=== PATIENT | male | born 1960 | race American Indian/Alaskan Native ===

== ENCOUNTER 2018-08-06 18:24 | Observation (INO) | payer MEDICARE ==
[2018-08-06] MEDS ORDERED: ASPIRIN PO ONE (18:41)
--- NOTE | 2018-08-06 18:51 | Emergency Department Report ---
Blank Doc - Documentation Documentation: 58 Y/O MALE WITH PMH OF COUGH, SOB, CHEST PAIN FOR 5-7 DAYS NON IMPROVING.
[2018-08-06 19:17] LABS: Basophils # (Auto) 0.1 K/mm3 (0.0-0.1); Basophils % (Auto) 0.5 % (0.0-1.8); Eosinophils # (Auto) 0.2 K/mm3 (0.0-0.4); Eosinophils % (Auto) 1.5 % (0.0-4.3); Hematocrit 38.4 % (35.5-45.6); Hemoglobin 12.2 gm/dl (11.8-15.2); Lymphocytes # (Auto) 1.3 K/mm3 (1.2-5.4); Lymphocytes % (Auto) 12.2 % (13.4-35.0); Mean Corpuscular HGB Conc 32 % (32-34); Mean Corpuscular Volume 74 fl (84-94); Monocytes # (Auto) 0.5 K/mm3 (0.0-0.8); Monocytes % (Auto) 4.5 % (0.0-7.3); Platelet Count 228 K/mm3 (140-440); Red Blood Count 5.22 M/mm3 (3.65-5.03); Red Cell Distribution Width 16.4 % (13.2-15.2)
[2018-08-06 19:56] LABS: Calcium 8.9 mg/dL (8.4-10.2)
[2018-08-06 20:02] LABS: Alanine Aminotransferase 18 units/L (7-56); Albumin 3.8 g/dL (3.9-5)
[2018-08-06 20:06] LABS: Bilirubin,Direct < 0.2 mg/dL (0-0.2)
--- NOTE | 2018-08-06 20:12 | XRay Report ---
PROCEDURE: XR CHEST 1V AP HISTORY: Chest Pain FINDINGS: Single frontal view of the chest was acquired. The heart is top normal in size. There is a pacing device. There is no evidence of congestive heart failure. There is no pneumothorax. There is some faint increased density overlying the right upper lobe, overlying the right posterior f ourth and fifth ribs. It is possible that this could be confluence of shadows but early pneumonia is not excluded. Consider follow-up radiography as clinically indicated. IMPRESSION: No evidence of congestive heart failure Possible right upper lobe infiltrate consider follow-up radiography as clinically indicated This document is electronically signed by Corey Watkins MD., Aug 06 2018 08:10:35 PM ET
[2018-08-06 20:22] LABS: Chol/HDL Ratio 2.47 %
[2018-08-06] MEDS ORDERED: MORPHINE IV ONE (22:40)
[2018-08-06] MEDS ORDERED: PERCOCET 5/325 PO ONE (23:13)
[2018-08-06] MEDS ORDERED: PERCOCET 5/325 ONE (23:15)
[2018-08-06] MEDS ORDERED: ASPIRIN ONE (23:15)
--- NOTE | 2018-08-06 23:52 | Emergency Department Report ---
ED Chest Pain HPI - General Chief Complaint: Chest Pain Stated Complaint: RT KNEE/CHEST PAIN Time Seen by Provider: 08/06/18 18:32 Source: patient Mode of arrival: Ambulatory Limitations: No Limitations - History of Present Illness Initial Comments: 58-year-old male with history of CHF with pacemaker, HTN, diabetes, presents to ED with dyspnea on exertion and exertional chest pain since last night. Patient describes tightness in chest when walking a short distance. Denies nausea or vomiting. Patient reports last stress test approx 1 year ago. Patient also reports pain to anterior right knee. Denies posterior knee pain or calf pain. Mild swelling present. Denies any obvious injury. Patient reports history of arthritis. PCP: Dr Webster Cardiology: Dr Fatou CHANCE Complaint: chest pain -: Last night Onset: during exertion Pain Location: left chest Severity: moderate Severity scale (0 -10): 6 Quality: tightness Consistency: intermittent Improves With: rest Worsens With: exertion re: dyspnea. denies: vomting, diaphoresis Other Symptoms: cough. denies: leg swelling - Related Data Home Medications Medication Instructions Recorded Confirmed Last Taken Aspirin EC [Aspirin Enteric Coated 1 tab PO DAILY 08/06/18 08/06/18 Unknown TAB] AtorvaSTATin [Lipitor] 40 mg PO QHS 08/06/18 08/06/18 Unknown Carvedilol [Coreg] 12.5 mg PO BID 08/06/18 08/06/18 Unknown Furosemide [Lasix TAB] 40 mg PO QDAY 08/06/18 08/06/18 Unknown Sacubitril/Valsartan [Entresto 24 1 tab PO BID 08/06/18 08/06/18 Unknown - 26 mg] Spironolactone [Aldactone] 25 mg PO QDAY 08/06/18 08/06/18 Unknown amLODIPine [Norvasc] 1 tab PO DAILY 08/06/18 08/06/18 Unknown hydrALAZINE [Apresoline TAB] 1 tab PO BID 08/06/18 08/06/18 Unknown Allergies Allergy/AdvReac Type Severity Reaction Status Date / Time No Known Allergies Allergy Unverified 08/06/18 18:35 Heart Score - HEART Score History: Moderately suspicious EKG: Non-specific Age: 45-65 Risk factors: 1-2 risk factors Troponin: 1-3x normal limit HEART Score: 5 ED Review of Systems ROS: Stated complaint: RT KNEE/CHEST PAIN Other details as noted in HPI Comment: All other systems reviewed and negative Constitutional: denies: chills, fever Respiratory: cough, shortness of breath Cardiovascular: chest pain Gastrointestinal: denies: nausea, vomiting Musculoskeletal: joint swelling, arthralgia ED Past Medical Hx - Past Medical History Hx Congestive Heart Failure: Yes Hx Renal Disease: Yes (right nephrectomy) - Surgical History Additional Surgical History: pacemaker - Social History Smoking Status: Current Every Day Smoker Substance Use Type: None - Medications Home Medications: Home Medications Medication Instructions Recorded Confirmed Last Taken Type Aspirin EC [Aspirin Enteric Coated 1 tab PO DAILY 08/06/18 08/06/18 Unknown History TAB] AtorvaSTATin [Lipitor] 40 mg PO QHS 08/06/18 08/06/18 Unknown History Carvedilol [Coreg] 12.5 mg PO BID 08/06/18 08/06/18 Unknown History Furosemide [Lasix TAB] 40 mg PO QDAY 08/06/18 08/06/18 Unknown History Sacubitril/Valsartan [Entresto 24 1 tab PO BID 08/06/18 08/06/18 Unknown History - 26 mg] Spironolactone [Aldactone] 25 mg PO QDAY 08/06/18 08/06/18 Unknown History amLODIPine [Norvasc] 1 tab PO DAILY 08/06/18 08/06/18 Unknown History hydrALAZINE [Apresoline TAB] 1 tab PO BID 08/06/18 08/06/18 Unknown History ED Physical Exam - General Limitations: No Limitations General appearance: alert, in no apparent distress - Head Head exam: Present: atraumatic, normocephalic - Eye Eye exam: Present: normal appearance - ENT ENT exam: Present: mucous membranes moist - Neck Neck exam: Present: normal inspection - Respiratory Respiratory exam: Present: normal lung sounds bilaterally. Absent: respiratory distress - Cardiovascular Cardiovascular Exam: Present: regular rate, normal rhythm - GI/Abdominal GI/Abdominal exam: Present: soft. Absent: distended, tenderness - Extremities Exam Extremities exam: Present: other (mild swelling present to right knee w/ tenderness to palpation and pain w/ ROM). Absent: pedal edema, calf tenderness - Neurological Exam Neurological exam: Present: alert, oriented X3 - Psychiatric Psychiatric exam: Present: normal affect, normal mood - Skin Skin exam: Present: warm, dry, intact, normal color ED Course Vital Signs 08/06/18 08/06/18 08/06/18 18:36 23:00 23:30 Temperature 9 F L 98.3 F Pulse Rate 101 H 90 90 Pulse Rate [ Anterior Bilateral] Respiratory 20 21 16 Rate Respiratory Rate [Anterior Bilateral] Blood Pressure 132/70 165/78 Blood Pressure 165/78 [Left] O2 Sat by Pulse 99 97 99 Oximetry 08/07/18 08/07/18 08/07/18 00:00 00:19 02:01 Temperature Pulse Rate 91 H 86 88 Pulse Rate [ Anterior Bilateral] Respiratory 26 H 18 24 Rate Respiratory Rate [Anterior Bilateral] Blood Pressure 144/67 144/67 126/54 Blood Pressure [Left] O2 Sat by Pulse 93 94 96 Oximetry 08/07/18 08/07/18 08/07/18 02:53 03:01 03:10 Temperature Pulse Rate 94 H Pulse Rate [ 88 91 H Anterior Bilateral] Respiratory 12 Rate Respiratory 18 13 Rate [Anterior Bilateral] Blood Pressure 117/51 Blood Pressure [Left] O2 Sat by Pulse 98 Oximetry 08/07/18 08/07/18 08/07/18 04:00 04:11 04:21 Temperature Pulse Rate 81 86 73 Pulse Rate [ Anterior Bilateral] Respiratory 24 24 28 H Rate Respiratory Rate [Anterior Bilateral] Blood Pressure 123/51 117/51 117/51 Blood Pressure [Left] O2 Sat by Pulse 97 97 95 Oximetry 08/07/18 04:30 Temperature Pulse Rate 59 L Pulse Rate [ Anterior Bilateral] Respiratory 21 Rate Respiratory Rate [Anterior Bilateral] Blood Pressure 117/51 Blood Pressure [Left] O2 Sat by Pulse 99 Oximetry ED Medical Decision Making - Lab Data Result diagrams: 08/07/18 05:34 08/07/18 05:34 - EKG Data -: EKG Interpreted by Mo EKG shows normal: sinus rhythm, axis, intervals, QRS complexes, ST-T waves Rate: normal - EKG Data Interpretation: no acute changes, LVH, other (LAFB) - Radiology Data Radiology results: report reviewed - Medical Decision Making 58 yo M w/ HTN, diabetes, CHF w/ pacemaker. Reports exertional chest tightness and dyspnea since yesterday. EKG shows no acute ST changes. Initial trop 0.03, repeat decreased to 0.02. CXR shows no abnormalities. Reports it has been at least one year since his last stress test. Pt also reporting pain and swelling to right knee. Xrays unremarkable. Possible arthritis. Vital signs normal, remaider of labs unremarkable, except for creatnine of 1.7. Pt reports only having one kidney. Spoke w/ Dr Restrepo, hospitalist, will admit for further management. - Differential Diagnosis ACS, pulm edema, arthritis Critical care attestation.: If time is entered above; I have spent that time in minutes in the direct care of this critically ill patient, excluding procedure time. ED Disposition Clinical Impression: Chest pain Disposition: OP ADMIT IP TO THIS HOSP Is pt being admited?: Yes Condition: Stable Time of Disposition: 00:44
--- NOTE | 2018-08-07 00:19 | XRay Report ---
PROCEDURE: XR CHEST ROUTINE 2V TECHNIQUE: PA and lateral radiographs of the chest obtained. HISTORY: chest pain, abnormal 1 view COMPARISONS: None FINDINGS: Left-sided AICD noted. No focal consolidation or effusion visualized. No pneumothorax utilized. IMPRESSION: No focal consolidation or effusion.. This document is electronically signed by Jaime Beltran MD., Aug 07 2018 12:16:53 AM ET
--- NOTE | 2018-08-07 00:20 | XRay Report ---
PROCEDURE: XR KNEE 3V RT TECHNIQUE: Right knee radiographs, AP, lateral, and sunrise views. HISTORY: knee pain COMPARISONS: None FINDINGS: Fracture (s) and/or Dislocation(s): None Alignment: Normal Joint space(s): Normal Soft tissues: Normal Bone mineralization: Normal Foreign bodies: None IMPRESSION: No acute fracture or dislocation. This document is electronically signed by Jaime Beltran MD., Aug 07 2018 12:18:00 AM ET
[2018-08-07] MEDS ORDERED: SODIUM CHLORIDE FLUSH SYRINGE 10 ML IV PRN (01:19)
[2018-08-07] MEDS ORDERED: ZOFRAN IV PRN (01:19)
[2018-08-07] MEDS ORDERED: TYLENOL PO PRN (01:19)
[2018-08-07] MEDS ORDERED: MORPHINE IV PRN (01:19)
--- NOTE | 2018-08-07 01:33 | History and Physical Report ---
History of Present Illness Date of examination: 08/07/18 History of present illness: 58-year-old man with a history of hypertension, diabetes, CHF course emergency room with complaints of chest pain. Pain is in the left substernal area which she described as pressure, intermittent ever 5 minutes, no radiation, intensity 5/10, no radiation, relieved with nitroglycerin. Admits to shortness of breath, worse with exertion. He had a stress test 1 year ago Review of systems Constitutional: no weight loss, chills, fever Ears, eyes, nose, mouth and throat: no nasal congestion, no nasal discharge, no sinus pressure, no vision change, no red eye. Neck: No neck pain or rigidity. Cardiovascular: no palpitations Respiratory: no cough, +shortness of breath Gastrointestinal: no hematochezia, abdominal pain Genitourinary : no frequency , no hematuria Musculoskeletal: no joint swelling or muscle ache Integumentary: no rash, no pruritis Neurological: no parathesias, no focal weakness Endocrine: no cold or heat intolerance, no polyuria or polydipsia Hematologic/Lymphatic: no easy bruising, no easy bleeding, no gland swelling Allergic/Immunologic: no urticaria, no angioedema. PAST MEDICAL HISTORY: hypertension, diabetes, CHF PAST SURGICAL HISTORY: Right nephrectomy SOCIAL HISTORY: Denies alcohol, drugs, tobacco FAMILY HISTORY: Hypertension Medications and Allergies Allergies Allergy/AdvReac Type Severity Reaction Status Date / Time No Known Allergies Allergy Unverified 08/06/18 18:35 Home Medications Medication Instructions Recorded Confirmed Last Taken Type Aspirin EC [Aspirin Enteric Coated 1 tab PO DAILY 08/06/18 08/06/18 Unknown History TAB] AtorvaSTATin [Lipitor] 40 mg PO QHS 08/06/18 08/06/18 Unknown History Carvedilol [Coreg] 12.5 mg PO BID 08/06/18 08/06/18 Unknown History Furosemide [Lasix TAB] 40 mg PO QDAY 08/06/18 08/06/18 Unknown History Sacubitril/Valsartan [Entresto 24 1 tab PO BID 08/06/18 08/06/18 Unknown History - 26 mg] Spironolactone [Aldactone] 25 mg PO QDAY 08/06/18 08/06/18 Unknown History amLODIPine [Norvasc] 1 tab PO DAILY 08/06/18 08/06/18 Unknown History hydrALAZINE [Apresoline TAB] 1 tab PO BID 08/06/18 08/06/18 Unknown History Active Meds: Active Medications Acetaminophen (Tylenol) 650 mg PO Q4H PRN PRN Reason: Pain MILD(1-3)/Fever >100.5/GUZMAN Albuterol/Ipratropium (Duoneb *Not For Prn Use*) 1 ampul IH Q6HRT [facility] Enoxaparin Sodium (Lovenox) 30 mg SUB-Q QDAY [facility] Morphine Sulfate (Morphine) 2 mg IV Q4H PRN PRN Reason: Pain, Moderate (4-6) Ondansetron HCl (Zofran) 4 mg IV Q8H PRN PRN Reason: Nausea And Vomiting Sodium Chloride (Sodium Chloride Flush Syringe 10 Ml) 10 ml IV BID [facility] Sodium Chloride (Sodium Chloride Flush Syringe 10 Ml) 10 ml IV PRN PRN PRN Reason: LINE FLUSH Exam - Physical Exam Narrative exam: General Apperance: The patient lying in bed, breathing comfortable HEENT: Normocephalic, atraumatic. Pupils equally round and reactive to light, EOMI, no sclericterus or JVD or thyromegaly or nodule. , no carotid bruit, mucous membranes moist, no exudate or erythema Heart: S1-S2, regular is rhythm Lungs: Clear to auscultation bilaterally, breathing comfortable Abdomen: Positive bowel sounds, soft, nontender, nondistended, no organomegaly Extremities: No edema cyanosis clubbing Skin: no rash, nodule, warm and dry Neuro: cranial nerves 2-12 intact, speech is fluent, motor/sensory intact - Constitutional Vitals: Temp Pulse Resp BP Pulse Ox 98.3 F 91 H 26 H 144/67 93 08/06/18 23:30 08/07/18 00:00 08/07/18 00:00 08/07/18 00:00 08/07/18 00:00 Results - Labs CBC & Chem 7: 08/06/18 18:51 08/06/18 18:51 Labs: Abnormal lab results 08/06/18 08/06/18 08/06/18 Range/Units 18:51 18:51 18:54 RBC 5.22 H (3.65-5.03) M/mm3 MCV 74 L (84-94) fl MCH 23 L (28-32) pg RDW 16.4 H (13.2-15.2) % Lymph % (Auto) 12.2 L (13.4-35.0) % Seg Neutrophils % 81.3 H (40.0-70.0) % Seg Neutrophils # 8.4 H (1.8-7.7) K/mm3 Sodium 134 L (137-145) mmol/L Chloride 97.2 L (98-107) mmol/L BUN 22 H (9-20) mg/dL Creatinine 1.7 H (0.8-1.5) mg/dL Glucose 230 H (75-100) mg/dL Troponin T 0.035 H (0.00-0.029) ng/mL Albumin 3.8 L (3.9-5) g/dL Triglycerides 159 H (2-149) mg/dL - Imaging and Cardiology EKG: image reviewed Chest x-ray: report reviewed Assessment and Plan Assessment Chest pain, rule out ACS CHF, stable Hypertension Diabetes Plan Admit to medicine Check cardiac enzymes, consult cardiology Check fingersticks and initiate insulin sliding scale Continue appropriate outpatient medications DVT prophylaxis
[2018-08-07] MEDS ORDERED: D50W (25GM) Syringe IV PRN (02:00)
[2018-08-07] MEDS: DUONEB *Not for PRN Use IH SCH ×5 (02:50→21:20)
[2018-08-07] MEDS ORDERED: TYLENOL ONE (04:15)
[2018-08-07 07:04] LABS: Basophils % (Auto) 0.6 % (0.0-1.8); Calcium 8.4 mg/dL (8.4-10.2); Eosinophils # (Auto) 0.2 K/mm3 (0.0-0.4); Eosinophils % (Auto) 3.2 % (0.0-4.3); Hematocrit 34.5 % (35.5-45.6); Lymphocytes # (Auto) 1.9 K/mm3 (1.2-5.4); Lymphocytes % (Auto) 25.4 % (13.4-35.0); Mean Corpuscular HGB Conc 32 % (32-34); Mean Corpuscular Volume 73 fl (84-94); Monocytes # (Auto) 0.9 K/mm3 (0.0-0.8); Monocytes % (Auto) 11.9 % (0.0-7.3); Platelet Count 198 K/mm3 (140-440); Red Cell Distribution Width 16.5 % (13.2-15.2)
[2018-08-07] MEDS: HumaLOG SUB-Q SCH ×3 (09:31→22:00)
[2018-08-07] MEDS: APRESOLINE PO SCH ×2 (09:44→21:44)
[2018-08-07] MEDS: HALFPRIN EC PO SCH (09:44)
[2018-08-07] MEDS: NORVASC PO SCH (09:44)
[2018-08-07] MEDS: ALDACTONE PO SCH (09:44)
[2018-08-07] MEDS: SODIUM CHLORIDE FLUSH SYRINGE 10 ML IV SCH ×2 (09:45→21:46)
[2018-08-07] MEDS: COREG PO SCH (09:45)
[2018-08-07] MEDS ORDERED: LASIX PO SCH (10:00)
[2018-08-07] MEDS ORDERED: LOVENOX SUB-Q SCH (10:00)
[2018-08-07] MEDS ORDERED: AFLURIA QUAD 2018-2019 SYRINGE IM ONE (12:00)
--- NOTE | 2018-08-07 13:04 | Consultation ---
History of Present Illness Consult date: 08/07/18 Consult reason: congestive heart failure History of present illness: The patient is a 58-year-old man with multiple medical problems. He has severe obesity, obstructive sleep apnea on home CPAP, and chronic tobacco abuse. He also has a long history of a dilated, nonischemic cardiomyopathy. 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 Cardiac catheterization several years ago revealed no significant coronary artery disease, and patient was subsequently implanted with a defibrillator in 2005. He is unable to articulate his left ventricular ejection fraction percentage. The patient presents to the hospital at this time complaining of shortness of breath, chest tightness, cough. He denies noncompliance with his medications, but admits to recent consumption of high sodium [place] food and also noncompliance with his home CPAP therapy. His ECG is normal sinus rhythm, left axis deviation, left ventricular hypertrophy, poor R-wave progression but no acute ischemic changes. X-rays not available for review, but the report states no evidence of significant interstitial edema or heart failure exacerbation. Past History Past Medical History: heart failure, hypertension Past Surgical History: Other (cardiac defibrillator) Medications and Allergies Allergies Allergy/AdvReac Type Severity Reaction Status Date / Time No Known Allergies Allergy Unverified 08/06/18 18:35 Home Medications Medication Instructions Recorded Confirmed Last Taken Type Aspirin EC [Aspirin Enteric Coated 1 tab PO DAILY 08/06/18 08/06/18 Unknown His tory TAB] AtorvaSTATin [Lipitor] 40 mg PO QHS 08/06/18 08/06/18 Unknown History Carvedilol [Coreg] 12.5 mg PO BID 08/06/18 08/06/18 Unknown History Furosemide [Lasix TAB] 40 mg PO QDAY 08/06/18 08/06/18 Unknown History Sacubitril/Valsartan [Entresto 24 1 tab PO BID 08/06/18 08/06/18 Unknown History - 26 mg] Spironolactone [Aldactone] 25 mg PO QDAY 08/06/18 08/06/18 Unknown History amLODIPine [Norvasc] 1 tab PO DAILY 08/06/18 08/06/18 Unknown History hydrALAZINE [Apresoline TAB] 1 tab PO BID 08/06/18 08/06/18 Unknown History Active Meds: Active Medications Acetaminophen (Tylenol) 650 mg PO Q4H PRN PRN Reason: Pain MILD(1-3)/Fever >100.5/GUZMAN Last Admin: 08/07/18 04:20 Dose: 650 mg Documented by: Albuterol/Ipratropium (Duoneb *Not For Prn Use*) 1 ampul IH Q6HRT [facility] Last Admin: 08/07/18 12:36 Dose: 1 ampul Documented by: Amlodipine Besylate (Norvasc) 10 mg PO DAILY [facility] Last Admin: 08/07/18 09:44 Dose: 10 mg Documented by: Aspirin (Halfprin Ec) 81 mg PO DAILY [facility] Last Admin: 08/07/18 09:44 Dose: 81 mg Documented by: Atorvastatin Calcium (Lipitor) 40 mg PO QHS [facility] Carvedilol (Coreg) 12.5 mg PO BID@0800,1700 [facility] Last Admin: 08/07/18 09:45 Dose: 12.5 mg Documented by: Dextrose (D50w (25gm) Syringe) 50 ml IV PRN PRN PRN Reason: Hypoglycemia Enoxaparin Sodium (Lovenox) 40 mg SUB-Q QDAY@1000 [facility] Furosemide (Lasix) 40 mg PO QDAY [facility] Last Admin: 08/07/18 09:44 Dose: 40 mg Documented by: Hydralazine HCl (Apresoline) 100 mg PO BID [facility] Last Admin: 08/07/18 09:44 Dose: 100 mg Documented by: Insulin Human Lispro (Humalog) 0 unit SUB-Q [facility]; Protocol Last Admin: 08/07/18 09:31 Dose: Not Given Documented by: Morphine Sulfate (Morphine) 2 mg IV Q4H PRN PRN Reason: Pain, Moderate (4-6) Ondansetron HCl (Zofran) 4 mg IV Q8H PRN PRN Reason: Nausea And Vomiting Sodium Chloride (Sodium Chloride Flush Syringe 10 Ml) 10 ml IV BID [facility] Last Admin: 08/07/18 09:45 Dose: 10 ml Documented by: Sodium Chloride (Sodium Chloride Flush Syringe 10 Ml) 10 ml IV PRN PRN PRN Reason: LINE FLUSH Spironolactone (Aldactone) 25 mg PO QDAY@0800 [facility] Last Admin: 08/07/18 09:44 Dose: 25 mg Documented by: Review of Systems Cardiovascular: chest pain, orthopnea, edema, shortness of breath, no palpitations, no rapid/irregular heart beat, no syncope, no lightheadedness Physical Examination Vital Signs Temp Pulse Resp BP Pulse Ox 9 F L 101 H 20 132/70 99 08/06/18 18:36 08/06/18 18:36 08/06/18 18:36 08/06/18 18:36 08/06/18 18:36 General appearance: no acute distress HEENT: Positive: PERRL Neck: Positive: neck supple Cardiac: Positive: Reg Rate and Rhythm Lungs: Positive: Decreased Breath Sounds Neuro: Positive: Grossly Intact Abdomen: Positive: Soft Male genitourinary: Positive: deferred Skin: Positive: Clear Extremities: Present: edema (trace) Results 08/07/18 05:34 08/07/18 05:34 Cardiac Enzymes 08/06/18 Range/Units 18:54 AST 23 (5-40) units/L Lipids 08/06/18 Range/Units 18:51 Triglycerides 159 H (2-149) mg/dL Cholesterol 109 (50-199) mg/dL HDL Cholesterol 44 (40-59) mg/dL Cholesterol/HDL Ratio 2.47 % CBC 08/06/18 08/07/18 Range/Units 18:51 05:34 WBC 10.3 7.5 (4.5-11.0) K/mm3 RBC 5.22 H 4.70 (3.65-5.03) M/mm3 Hgb 12.2 11.0 L (11.8-15.2) gm/dl Hct 38.4 34.5 L (35.5-45.6) % Plt Count 228 198 (140-440) K/mm3 Lymph # 1.3 1.9 (1.2-5.4) K/mm3 Kerr # 0.5 0.9 H (0.0-0.8) K/mm3 Eos # 0.2 0.2 (0.0-0.4) K/mm3 Baso # 0.1 0.0 (0.0-0.1) K/mm3 Comprehensive Metabolic Panel 08/06/18 08/06/18 08/07/18 Range/Units 18:51 18:54 05:34 Sodium 134 L 137 (137-145) mmol/L Potassium 4.2 4.0 (3.6-5.0) mmol/L Chloride 97.2 L 101.7 (98-107) mmol/L Carbon Dioxide 24 24 (22-30) mmol/L BUN 22 H 23 H (9-20) mg/dL Creatinine 1.7 H 1.7 H (0.8-1.5) mg/dL Glucose 230 H 122 H (75-100) mg/dL Calcium 8.9 8.4 (8.4-10.2) mg/dL Direct Bilirubin < 0.2 (0-0.2) mg/dL Indirect Bilirubin 0.2 mg/dL AST 23 (5-40) units/L ALT 18 (7-56) units/L Alkaline Phosphatase 96 (35-129) units/L Total Protein 7.3 (6.3-8.2) g/dL Albumin 3.8 L (3.9-5) g/dL EKG interpretations - Telemetry EKG Rhythm: Sinus Rhythm Assessment and Plan - Patient Problems (1) Acute on chronic systolic heart failure Current Visit: Yes Status: Acute Plan to address problem: Patient's presentation appears consistent with acute on chronic systolic heart failure, likely exacerbated by dietary salt indiscretion. We will switch to intravenous furosemide, and continue his routine afterload and beta jj therapy. An echocardiogram will be done for left ventricular function assessment. (2) Sleep apnea Current Visit: Yes Status: Acute Plan to address problem: I suspect that some of this patient's shortness of breath is related to his poor compliance with his CPAP therapy, recommend pulmonary consultation and further assessment of therapies for sleep apnea.
[2018-08-07] MEDS: ENTRESTO 24 - 26 MG PO SCH ×2 (15:13→21:44)
[2018-08-07] MEDS: PERCOCET 5/325 PO PRN (16:46)
--- NOTE | 2018-08-07 18:05 | Event Note ---
Date: 08/07/18 Patient seen and examined, discussed case with cardiology, continue tx for heart failure, replace electrolytes. Patient has chronic right knee pain and will resume home dose percocet per patient, he will have outpatient work up referral to ortho for this pending resolution of cardiac symptoms.
[2018-08-07] MEDS: LASIX IV SCH (21:44)
[2018-08-08] MEDS: PERCOCET 5/325 PO PRN ×2 (00:03→09:14)
[2018-08-08] MEDS: DUONEB *Not for PRN Use IH SCH ×3 (02:53→13:34)
[2018-08-08] MEDS: LASIX IV SCH (07:24)
[2018-08-08] MEDS: COREG PO SCH (09:17)
[2018-08-08] MEDS: APRESOLINE PO SCH (09:18)
[2018-08-08] MEDS: NORVASC PO SCH (09:18)
[2018-08-08] MEDS: ENTRESTO 24 - 26 MG PO SCH (09:18)
[2018-08-08] MEDS: ALDACTONE PO SCH (09:19)
[2018-08-08] MEDS: HALFPRIN EC PO SCH (09:20)
[2018-08-08] MEDS: HumaLOG SUB-Q SCH ×3 (09:21→12:39)
[2018-08-08] MEDS: SODIUM CHLORIDE FLUSH SYRINGE 10 ML IV SCH (09:22)
[2018-08-08] MEDS ORDERED: LOVENOX SUB-Q SCH (10:00)
--- NOTE | 2018-08-08 11:46 | Progress Note ---
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 Laniez [facility] Main Echocardiogram for LVEF assessment. Continue medical therapy for decompensated heart failure. Subjective Date of service: 08/08/18 Interval history: Patient is resting in bed and appears comfortable. Reports his breathing is better. Objective Vital Signs Temp Pulse Pulse Pulse Resp Resp BP 08/08/18 09:19 97 H 148/83 08/08/18 09:18 97 H 148/83 08/08/18 09:17 97 H 148/83 08/08/18 09:00 97.5 F L 97 H 18 148/83 08/08/18 07:59 08/08/18 07:58 85 17 08/08/18 05:00 78 08/08/18 03:20 85 20 159/84 08/08/18 03:03 98.3 F 85 18 159/84 08/08/18 02:55 83 20 08/08/18 01:51 87 08/07/18 22:48 98.2 F 90 16 159/79 08/07/18 22:46 08/07/18 21:30 87 16 08/07/18 21:25 08/07/18 21:21 87 16 08/07/18 21:00 87 08/07/18 19:57 98.2 F 95 H 16 176/88 08/07/18 17:01 98.4 F 08/07/18 17:00 79 20 156/80 08/07/18 13:00 81 08/07/18 12:47 83 20 08/07/18 12:36 84 20 08/07/18 12:29 98.2 F 08/07/18 12:07 78 18 144/79 Pulse Ox 08/08/18 09:19 08/08/18 09:18 08/08/18 09:17 08/08/18 09:00 99 08/08/18 07:59 99 08/08/18 07:58 08/08/18 05:00 08/08/18 03:20 96 08/08/18 03:03 95 08/08/18 02:55 08/08/18 01:51 08/07/18 22:48 96 08/07/18 22:46 99 08/07/18 21:30 08/07/18 21:25 99 08/07/18 21:21 08/07/18 21:00 08/07/18 19:57 95 08/07/18 17:01 08/07/18 17:00 99 08/07/18 13:00 08/07/18 12:47 08/07/18 12:36 08/07/18 12:29 08/07/18 12:07 97 - Physical Examination General: No Apparent Distress, Other (obese) HEENT: Positive: PERRL Cardiac: Positive: Reg Rate and Rhythm Neuro: Positive: Grossly Intact Abdomen: Positive: Soft Skin: Positive: Clear Extremities: Present: edema (trace) - Imaging and Cardiology EKG: image reviewed
[2018-08-08 12:00] VITALS: BP 148/84
--- NOTE | 2018-08-08 13:40 | Discharge Summary ---
Providers - Providers Date of Admission: 08/08/18 09:02 Date of discharge: 08/08/18 Attending physician: KRISTI SABA 08/07/18 01:19 Consult to Physician [CONS] Routine Comment: Consulting Provider: ANTIONETTE LOMBARDO Physician Instructions: Reason For Exam: cp 08/07/18 18:07 Consult to Physician [CONS] Routine Comment: Consulting Provider: FLORINA OATES Physician Instructions: Reason For Exam: WILIAM Primary care physician: LAUREL LAUREN Hospitalization Condition: Stable Hospital course: Patient is a 58 yo man with a history of nephrectomy, OA of knee on chronic pain medication, ROEL on cpap at home who follows Dr. Dunn, tobacco dependency, dilated NICMP and obesity who presented with SOB -Acute on chronic systolic heart failure, treated successfully iv lasix bid, d/w Dr. Lombardo, ok to discharge despite ECHO pending -ROEL on cpap -Tobacco dependency: addiction treatment counselor on stopping -Suspect CKD 3, no baseline, pt only has one kidney: follow up Nephrology outpatient -NICMP: continue medical management, Disposition: TO HOME OR SELFCARE Time spent for discharge: 35 minutes Core Measure Documentation - Palliative Care Palliative Care/ Comfort Measures: Not Applicable - Core Measures Any of the following diagnoses?: none - VTE Discharge Requirements Deep Vein Thrombosis/Pulmonary Embolism Present on Admission: No Has pt received <5 days of overlap therapy or INR<2.0: No Anticoagulant overlap therapy prescribed at discharge: No Contraindication No Overlap Therapy order at DC: Not Indicated Exam - Physical Exam Narrative exam: Gen: WDWN, NAD, Awake, Alert, Orientated HEENT: NCAT, EOMI, PERRL, OP Clear Neck: supple, no adenopathy, no thyromegaly, no JVD CVS/Heart: RRR, normal S1S2, pulses present bilaterally Chest/Lungs: CTA B, Symmetrical chest expansion, good air entry bilaterally GI/Abdomen: soft, NTND, good bowel sounds, no guarding or rebound /Bladder: no suprapubic tenderness, no CVA or paraspinal tenderness Extermity/Skin: no c/c/e, no obvious rash MSK: FROM x 4 Neuro: CN 2-12 grossly intact, no new focal deficits Psych: calm - Constitutional Vitals: Temp Pulse Resp BP Pulse Ox 97.5 F L 89 18 148/84 98 08/08/18 09:00 08/08/18 12:38 08/08/18 09:00 08/08/18 11:59 08/08/18 11:59 Plan Activity: other (no strenous activity unless cleared by PCP) Diet: low salt Special Instructions: restrict fluid intake to (1800 ml/day), record daily weights Follow up with: LAUREL LAUREN MD [Primary Care Provider] - 3-5 Days ANTIONETTE LOMBARDO MD [Staff Physician] - 7 Days GALLO DUNN MD [Staff Physician] - 7 Days Prescriptions: Spironolactone [Aldactone] 25 mg PO QDAY #30 tablet hydrALAZINE [Apresoline TAB] 1 tab PO BID #60 tab Furosemide [Lasix TAB] 40 mg PO QDAY #30 tablet oxyCODONE /ACETAMINOPHEN [Percocet 5/325 mg] 1 tab PO Q6H PRN #20 tablet PRN Reason: Pain , Severe (7-10) ALBUTEROL Inhaler(NF) [VENTOLIN Inhaler(NF)] 2 puff IH Q4H PRN #1 inha PRN Reason: Shortness Of Breath
[2018-08-08] MEDS ORDERED: MAGNESIUM SULFATE 2GM/50ML 2 GM/50 ML BAG IV ONE (16:04)
== END 2018-08-08 14:25 | disposition home or self-care (01) ==
LOC: ED 18:24 → 4A 08-07 02:45 → INTOOBSV 08-07 02:45 → OBSVTOIN 08-08 09:02
PROVIDERS: ADMIT Internal Medicine; ATTEND Internal Medicine
DX: R07.89 Other chest pain (principal); I11.0 Hypertensive heart disease with heart failure; I50.23 Acute on chronic systolic (congestive) heart failure; I42.0 Dilated cardiomyopathy; E11.9 Type 2 diabetes mellitus without complications; E66.9 Obesity, unspecified; G47.33 Obstructive sleep apnea (adult) (pediatric); F17.200 Nicotine dependence, unspecified, uncomplicated; Z90.5 Acquired absence of kidney; Z82.49 Family history of ischemic heart disease and other diseases of the circulatory system; Z79.82 Long term (current) use of aspirin; Z98.890 Other specified postprocedural states; Z79.899 Other long term (current) drug therapy; Z79.4 Long term (current) use of insulin; Z95.0 Presence of cardiac pacemaker
CPT/HCPCS: 36415; 71045; 71046; 73562; 80048; 80061; 80076; 82962; 83880; 84484; 85025; 93005; 93010; 93306; 94640; 94660; 96372; 96374; 96376; 99284; A9270; G0378; J1650; J1940; J3475; 90686; 96375

== ENCOUNTER 2018-10-10 14:13 | Inpatient (IN) | payer MEDICARE ==
--- NOTE | 2018-10-10 14:36 | Emergency Department Report ---
Blank Doc - Documentation Documentation: 58 y o male presents with chest pain , states feels like someone is stepping on his chest labs,ekg, xray
[2018-10-10 15:03] LABS: Basophils % (Auto) 0.8 % (0.0-1.8); Eosinophils # (Auto) 0.3 K/mm3 (0.0-0.4); Eosinophils % (Auto) 4.8 % (0.0-4.3); Hematocrit 37.8 % (35.5-45.6); Hemoglobin 11.8 gm/dl (11.8-15.2); Lymphocytes # (Auto) 1.5 K/mm3 (1.2-5.4); Lymphocytes % (Auto) 26.7 % (13.4-35.0); Mean Corpuscular HGB Conc 31 % (32-34); Mean Corpuscular Volume 73 fl (84-94); Monocytes # (Auto) 0.5 K/mm3 (0.0-0.8); Monocytes % (Auto) 9.3 % (0.0-7.3); Platelet Count 187 K/mm3 (140-440); Red Blood Count 5.16 M/mm3 (3.65-5.03); Red Cell Distribution Width 17.3 % (13.2-15.2)
[2018-10-10 15:27] LABS: Calcium 8.8 mg/dL (8.4-10.2)
--- NOTE | 2018-10-10 16:19 | XRay Report ---
CHEST 2 VIEWS INDICATION: Chest Pain. COMPARISON: Chest x-ray report dated 08/06/2018 FINDINGS: Support devices: A single lead pacemaker device terminates in the right ventricle. Heart: Within normal limits. Lungs/pleura: No acute air space or interstitial disease. No pneumothorax. Additional findings: None. IMPRESSION: No acute findings. Signer Name: Harjinder Perales Jr, MD Signed: 10/10/2018 4:15 PM Workstation Name: [id number]
[2018-10-10 16:22] LABS: Chol/HDL Ratio 2.53 %
[2018-10-10] MEDS ORDERED: MORPHINE IV ONE (17:11)
[2018-10-10] MEDS ORDERED: ASPIRIN PO ONE (17:11)
[2018-10-10] MEDS ORDERED: ZOFRAN ONE (17:56)
[2018-10-10] MEDS ORDERED: ZOFRAN IV ONE (17:58)
[2018-10-10] MEDS ORDERED: PEPCID IV ONE (18:24)
[2018-10-10] MEDS ORDERED: CARAFATE PO ONE (18:25)
[2018-10-10] MEDS ORDERED: TYLENOL PO ONE ×2 (18:25→22:25)
[2018-10-10] MEDS ORDERED: ALUM-MAG HYDROX-SIMETH 200-200-20MG/5ML PO ONE (18:25)
--- NOTE | 2018-10-10 19:00 | Emergency Department Report ---
ED General Adult HPI - General Chief complaint: Chest Pain Stated complaint: CHEST PAIN Time Seen by Provider: 10/10/18 14:34 Source: patient, RN notes reviewed, old records reviewed Mode of arrival: Ambulatory Limitations: No Limitations - History of Present Illness Initial comments: Primary care Dr.: Dr. Best [employer] Cable Splicer: Dr. Morgan Lainez This is a 58-year-old gentleman. This patient is not known to this provider previously. Past medical history includes severe obesity, obstructive sleep apnea, CPAP, chronic tobacco consumption, dilated nonischemic cardiomyopathy, cardiac catheterization several years ago revealed no significant coronary arter y disease, has an implanted defibrillator, and was recently admitted to this hospital in August for shortness of breath, likely secondary to dietary indiscretions and noncompliance with home CPAP therapy. Patient had ejection fraction at this hospital 30-35%. Patient has chronic renal insufficiency, and chronic elevated troponin. Patient presents to the ER today with complaint of central chest pressure. The pressure is constant since last night. It does not radiate to the back, arms and neck. Patient versus nausea and vomiting. Patient not sure about diaphoresis. Patient indicates medication compliance. He denies dietary indiscretions. The patient also indicates he is taking aspirin. The patient also indicates new shortness of breath. He states his shortness of breath is exertional, and new when compared to prior. -: Gradual, hour(s) Location: chest Radiation: non-radiation Severity scale (0 -10): 6 Quality: other (patient states pain feels like somebody is standing on his chest) Consistency: constant Improves with: none Worsens with: none - Related Data Home Medications Medication Instructions Recorded Confirmed Last Taken Sacubitril/Valsartan [Entresto 24 1 tab PO BID 08/06/18 08/06/18 Unknown - 26 mg] Previous Rx's Medication Instructions Recorded Last Taken Type ALBUTEROL Inhaler(NF) [VENTOLIN 2 puff IH Q4H PRN #1 inha 08/08/18 Unknown Rx Inhaler(NF)] Acetaminophen [Acetaminophen TAB] 325 mg PO Q4H PRN #15 tablet 08/08/18 Unknown Rx Aspirin EC 1 tab PO DAILY #30 08/08/18 Unknown Rx AtorvaSTATin [Lipitor] 40 mg PO QHS #30 tab 08/08/18 Unknown Rx Carvedilol [Coreg] 12.5 mg PO BID #60 tab 08/08/18 Unknown Rx Furosemide [Lasix TAB] 40 mg PO QDAY #30 tablet 08/08/18 Unknown Rx Spironolactone [Aldactone] 25 mg PO QDAY #30 tablet 08/08/18 Unknown Rx amLODIPine [Norvasc] 1 tab PO DAILY #30 08/08/18 Unknown Rx hydrALAZINE [Apresoline TAB] 1 tab PO BID #60 tab 08/08/18 Unknown Rx oxyCODONE /ACETAMINOPHEN [Percocet 1 tab PO Q6H PRN #20 tablet 08/08/18 Unknown Rx 5/325 mg] Allergies Allergy/AdvReac Type Severity Reaction Status Date / Time No Known Allergies Allergy Unverified 08/06/18 18:35 ED Review of Systems ROS: Stated complaint: CHEST PAIN Other details as noted in HPI Constitutional: denies: fever Eyes: denies: eye discharge Respiratory: shortness of breath Cardiovascular: chest pain Gastrointestinal: nausea Musculoskeletal: myalgia Skin: denies: lesions Neurological: weakness Psychiatric: denies: anxiety Hematological/Lymphatic: denies: easy bleeding ED Past Medical Hx - Past Medical History Previous Medical History?: Yes Hx Hypertension: Yes Hx Congestive Heart Failure: Yes Hx Diabetes: Yes Hx Renal Disease: Yes (right nephrectomy) Hx Arthritis: Yes - Surgical History Past Surgical History?: Yes Hx Open Heart Surgery: Yes Additional Surgical History: pacemaker - Social History Smoking Status: Current Every Day Smoker Substance Use Type: None - Medications Home Medications: Home Medications Medication Instructions Recorded Confirmed Last Taken Type Sacubitril/Valsartan [Entresto 24 1 tab PO BID 08/06/18 08/06/18 Unknown History - 26 mg] ALBUTEROL Inhaler(NF) [VENTOLIN 2 puff IH Q4H PRN #1 inha 08/08/18 Unknown Rx Inhaler(NF)] Acetaminophen [Acetaminophen TAB] 325 mg PO Q4H PRN #15 tablet 08/08/18 Unknown Rx Aspirin EC 1 tab PO DAILY #30 08/08/18 08/06/18 Unknown Rx AtorvaSTATin [Lipitor] 40 mg PO QHS #30 tab 08/08/18 08/06/18 Unknown Rx Carvedilol [Coreg] 12.5 mg PO BID #60 tab 08/08/18 08/06/18 Unknown Rx Furosemide [Lasix TAB] 40 mg PO QDAY #30 tablet 08/08/18 Unknown Rx Spironolactone [Aldactone] 25 mg PO QDAY #30 tablet 08/08/18 Unknown Rx amLODIPine [Norvasc] 1 tab PO DAILY #30 08/08/18 08/06/18 Unknown Rx hydrALAZINE [Apresoline TAB] 1 tab PO BID #60 tab 08/08/18 Unknown Rx oxyCODONE /ACETAMINOPHEN [Percocet 1 tab PO Q6H PRN #20 tablet 08/08/18 Unknown Rx 5/325 mg] ED Physical Exam - General Limitations: No Limitations General appearance: alert, in no apparent distress, obese - Head Head exam: Present: atraumatic, normocephalic - Eye Eye exam: Present: normal appearance, EOMI. Absent: nystagmus - ENT ENT exam: Present: normal exam, normal orophraynx, mucous membranes moist, normal external ear exam - Neck Neck exam: Present: normal inspection, full ROM. Absent: tenderness, me ningismus - Respiratory Respiratory exam: Present: normal lung sounds bilaterally. Absent: respiratory distress, chest wall tenderness - Cardiovascular Cardiovascular Exam: Present: regular rate, normal rhythm, normal heart sounds. Absent: bradycardia, tachycardia, irregular rhythm, systolic murmur, diastolic murmur, rubs, gallop - GI/Abdominal GI/Abdominal exam: Present: soft. Absent: distended, tenderness, guarding, rebound, rigid, pulsatile mass - Rectal Rectal exam: Present: deferred - Extremities Exam Extremities exam: Present: normal inspection, full ROM, pedal edema (1+ edema lower extremities. No palpable cord. Negative Homans sign.), other (2+ pulses noted in the bilateral upper, lower extremities. Compartments soft. No long bony tenderness. The pelvis is stable.). Absent: calf tenderness - Back Exam Back exam: Present: normal inspection, full ROM. Absent: tenderness, CVA tenderness (R), CVA tenderness (L), paraspinal tenderness, vertebral tenderness - Neurological Exam Neurological exam: Present: alert, oriented X3, other (Extraocular movements intact. Tongue midline. No facial droop. Facial sensation intact to light touch in the V1, V2, V3 distribution bilaterally. 5 and 5 strength in 4 extremities.. Sensation is intact to light touch in 4 extremities.). Absent: motor sensory deficit - Psychiatric Psychiatric exam: Present: normal affect, normal mood - Skin Skin exam: Present: warm, dry, intact, normal color. Absent: rash ED Course Vital Signs 10/10/18 10/10/18 14:33 16:40 Temperature 98.5 F 98.1 F Pulse Rate 96 H 85 Respiratory 22 22 Rate Blood Pressure 133/80 138/73 O2 Sat by Pulse 98 100 Oximetry - Reevaluation(s) Reevaluation #1: 10/10/18 19:06 Differential diagnosis, including not limited to: GERD, gastritis, hiatal hernia, pneumonia, pulmonary embolus, acute coronary syndrome Assessment and plan: 58-year-old gentleman who was admitted to this hospital in August for chest pain and shortness of breath, clinically does not appear to be fluid overloaded at this time, saturating well, with no crackles or rales. Has chronically elevated troponin, likely type II troponin leak, likely secondary to underlying cardiomyopathy, documented is not ischemic, and superimposed renal in sufficiency. EKG unchanged 2. Second troponin now within normal limits. When I walk into the room, the patient appears quite comfortable, and is speaking on the cellular phone. His vascular risk factor profile is reviewed and appreciated, however, given his similarity of presentation today when compared to prior, given unchanged EKG, chronically unchanged laboratory studies, and documented past history, including a negative cardiac catheterization a few years ago, we will attempt to get in touch with patient's private aboriginal ceremonial celebrant to arrange close outpatient follow-up for risk stratification. Reevaluation #2: 10/10/18 19:08 Patient saturating 98, 99% on room air, and clinically does not appear to be short of breath. Endorse complaints of shortness of breath is most likely multifactorial, secondary to obesity, presumed pulmonary hypertension, sleep apnea, and documented nonischemic cardiomyopathy. Reevaluation #3: 10/10/18 19:25 Contacted patient's primary aboriginal ceremonial celebrant, Dr. Morgan Lainez, who advises recommendation for admission for cardiac stress test for repeat restaurant medication. D-dimer elevated, nuclear medicine studies ordered. Reevaluation #4: 10/10/18 21:48 Nuclear medicine study is low probability for pulmonary embolism. The Hospital physician, Dr. Restrepo accepts the patient to her service ED Medical Decision Making - Lab Data Result diagrams: 10/10/18 14:49 10/10/18 14:49 Vital Signs 10/10/18 10/10/18 14:33 16:40 Temperature 98.5 F 98.1 F Pulse Rate 96 H 85 Respiratory 22 22 Rate Blood Pressure 133/80 138/73 O2 Sat by Pulse 98 100 Oximetry Lab Results 10/10/18 10/10/18 10/10/18 Range/Units 14:49 14:49 17:51 WBC 5.5 (4.5-11.0) K/mm3 RBC 5.16 H (3.65-5.03) M/mm3 Hgb 11.8 (11.8-15.2) gm/dl Hct 37.8 (35.5-45.6) % MCV 73 L (84-94) fl MCH 23 L (28-32) pg MCHC 31 L (32-34) % RDW 17.3 H (13.2-15.2) % Plt Count 187 (140-440) K/mm3 Lymph % (Auto) 26.7 (13.4-35.0) % [place] % (Auto) 9.3 H (0.0-7.3) % Eos % (Auto) 4.8 H (0.0-4.3) % Baso % (Auto) 0.8 (0.0-1.8) % Lymph # 1.5 (1.2-5.4) K/mm3 [place] # 0.5 (0.0-0.8) K/mm3 Eos # 0.3 (0.0-0.4) K/mm3 Baso # 0.0 (0.0-0.1) K/mm3 Seg Neutrophils % 58.4 (40.0-70.0) % Seg Neutrophils # 3.2 (1.8-7.7) K/mm3 Sodium 139 (137-145) mmol/L Potassium 4.4 (3.6-5.0) mmol/L Chloride 103.1 (98-107) mmol/L Carbon Dioxide 25 (22-30) mmol/L Anion Gap 15 mmol/L BUN 35 H (9-20) mg/dL Creatinine 2.1 H (0.8-1.5) mg/dL Estimated GFR 39 ml/min BUN/Creatinine Ratio 17 % Glucose 175 H (75-100) mg/dL Calcium 8.8 (8.4-10.2) mg/dL Troponin T 0.033 H 0.015 (0.00-0.029) ng/mL Triglycerides 128 (2-149) mg/dL Cholesterol 99 (50-199) mg/dL LDL Cholesterol Direct 46 L (50-130) mg/dL HDL Cholesterol 39 L (40-59) mg/dL Cholesterol/HDL Ratio 2.53 % - EKG Data -: EKG Interpreted by Ak EKG shows normal: sinus rhythm Rate: normal - EKG Data 10/10/18 18:59 EKG #1 shows a sinus tachycardia, left axis, borderline left anterior fascicular block, premature ventricular contractions, poor R wave progression, QTC prolonged, abnormal EKG, not consistent with ST elevation myocardial infarction. Today's EKG is unchanged from prior EKG from August 2018. EKG #2 appears to be unchanged from prior. - Radiology Data Radiology results: report reviewed, image reviewed Print Report Referring Physician: BARI HUTSON Patient Name: ANISHA RAMIREZ Date of : 1960 Sex: Male Report Date: 2018-10-10 Report Status: Finalized Findings [facility] [address] [place] [address] XRay Report Signed Patient: ANISHA RAMIREZ MR#: [id number] : 1960 Acct:[id number] Age/Sex: 58 / M ADM Date: 10/10/18 Loc: ED Attending Dr: Ordering Physician: YUNG ZAMORANO Date of Service: 10/10/18 Procedure(s): XR chest routine 2V Accession Number(s): [id number] cc: YUNG ZAMORANO Fluoro Time In Minutes: CHEST 2 VIEWS INDICATION: Chest Pain. COMPARISON: Chest x-ray report dated 08/06/2018 FINDINGS: Support devices: A single lead pacemaker device terminates in the right ventricle. Heart: Within normal limits. Lungs/pleura: No acute air space or interstitial disease. No pneumothorax. Additional findings: None. IMPRESSION: No acute findings. Signer Name: Harjinder Perales Jr, MD Signed: 10/10/2018 4:15 PM Workstation Name: [id number] Transcribed By: TTR Dictated By: HARJINDER PERALES JR, MD Electronically Authenticated By: HARJINDER PERALES JR, MD Signed Date/Time: 10/10/18 9391 Critical care attestation.: If time is entered above; I have spent that time in minutes in the direct care of this critically ill patient, excluding procedure time. ED Disposition Clinical Impression: Chest pain, Shortness of breath Disposition: OP ADMIT IP TO THIS HOSP Is pt being admited?: Yes Does the pt Need Aspirin: Yes Condition: Stable Instructions: Chest Pain (ED) Referrals: NANDA BARNETT MD [Primary Care Provider] - 3-5 Days
[2018-10-10] MEDS ORDERED: BABY ASPIRIN PO ONE (19:26)
--- NOTE | 2018-10-10 21:44 | Nuclear Medicine Report ---
NUCLEAR MEDICINE VENTILATION/PERFUSION LUNG SCAN INDICATION: Shortness of breath TECHNIQUE: 19.5 mCi of Xenon-133 were given by inhalation. 4.1 mCi of Tc 99m MAA were given by IV. FINDINGS: Comparison with chest radiograph from 10/10/2018. Ventilation/perfusion studies are matched. No significant perfusion defect is identified. Patient has an AICD which creates artifact on several views. No air-trapping is seen. IMPRESSION: Low probability for pulmonary embolism. Signer Name: Kameron Gordon MD Signed: 10/10/2018 9:39 PM Workstation Name: [id number]
[2018-10-10] MEDS ORDERED: NITROSTAT SL PRN (22:11)
[2018-10-10] MEDS ORDERED: SODIUM CHLORIDE FLUSH SYRINGE 10 ML IV PRN (22:15)
[2018-10-10] MEDS ORDERED: D50W (25GM) Syringe IV PRN (22:15)
[2018-10-10] MEDS ORDERED: TYLENOL PO PRN (22:15)
[2018-10-10] MEDS ORDERED: ZOFRAN IV PRN (22:15)
--- NOTE | 2018-10-10 22:15 | History and Physical Report ---
History of Present Illness Date of examination: 10/10/18 History of present illness: 58-year-old man with a history of hypertension, diabetes, CHF, ROEL, renal cell cancer comes to the emergency room with complaints of chest pain. Pain is in the left epigastric area which she described as someone standing on his chest, constant, no radiation, intensity 6/10. Admits to nausea, vomiting, shortness of breath, denies diaphoresis, palpitations Review of systems Constitutional: no weight loss, chills, fever Ears, eyes, nose, mouth and throat: no nasal congestion, no nasal discharge, no sinus pressure, no vision change, no red eye. Neck: No neck pain or rigidity. Cardiovascular: no palpitations Respiratory: no cough, +shortness of breath Gastrointestinal: no hematochezia, abdominal pain Genitourinary : no frequency , no hematuria Musculoskeletal: no joint swelling or muscle ache Integumentary: no rash, no pruritis Neurological: no parathesias, no focal weakness Endocrine: no cold or heat intolerance, no polyuria or polydipsia Hematologic/Lymphatic: no easy bruising, no easy bleeding, no gland swelling Allergic/Immunologic: no urticaria, no angioedema. PAST MEDICAL HISTORY: hypertension, diabetes, CHF, ROEL, renal cell cancer PAST SURGICAL HISTORY: Right nephrectomy, AICD SOCIAL HISTORY: Denies alcohol, drugs, smoke 1/2 pack/day FAMILY HISTORY: Hypertension Medications and Allergies Allergies Allergy/AdvReac Type Severity Reaction Status Date / Time No Known Allergies Allergy Unverified 08/06/18 18:35 Home Medications Medication Instructions Recorded Confirmed Last Taken Type Sacubitril/Valsartan [Entresto 24 1 tab PO BID 08/06/18 10/11/18 10/10/18 08:00 History - 26 mg] ALBUTEROL Inhaler(NF) [VENTOLIN 2 puff IH Q4H PRN #1 inha 08/08/18 10/11/18 08:00 Rx Inhaler(NF)] Aspirin EC 1 tab PO DAILY #30 08/08/18 10/11/18 10/10/18 08:00 Rx AtorvaSTATin [Lipitor] 40 mg PO QHS #30 tab 08/08/18 10/11/18 10/09/18 22:00 Rx Carvedilol [Coreg] 12.5 mg PO BID #60 tab 08/08/18 10/11/18 10/10/18 08:00 Rx Furosemide [Lasix TAB] 40 mg PO QDAY #30 tablet 08/08/18 10/11/18 10/10/18 08:00 Rx Spironolactone [Aldactone] 25 mg PO QDAY #30 tablet 08/08/18 10/11/18 10/10/18 08:00 Rx amLODIPine [Norvasc] 1 tab PO DAILY #30 08/08/18 10/11/18 10/10/18 08:00 Rx hydrALAZINE [Apresoline TAB] 1 tab PO BID #60 tab 08/08/18 10/11/18 10/10/18 08 :00 Rx Fluticasone Propionate [Flovent 100 mcg IH BID PRN 10/11/18 10/11/18 10/10/18 08:00 History Diskus] Nitroglycerin [Nitrostat] 0.4 mg SL Q5M PRN 10/11/18 10/11/18 10/10/18 08:00 History Oxycodone HCl/Acetaminophen 1 each PO Q6HR PRN 10/11/18 10/11/18 10/10/18 08:00 History [Percocet 10/325 mg] Active Meds: Active Medications Acetaminophen (Tylenol) 650 mg PO ONCE ONE Stop: 10/10/18 22:26 Nitroglycerin (Nitrostat) 0.4 mg SL .Q5MIN PRN PRN Reason: Chest Pain Exam - Physical Exam Narrative exam: General Apperance: The patient lying in bed, breathing comfortable HEENT: Normocephalic, atraumatic. Pupils equally round and reactive to light, EOMI, no sclericterus or JVD or thyromegaly or nodule. , no carotid bruit, mucous membranes moist, no exudate or erythema Heart: S1-S2, regular is rhythm Lungs: Clear to auscultation bilaterally, breathing comfortable Abdomen: Positive bowel sounds, soft, nontender, nondistended, no organomegaly Extremities: No edema cyanosis clubbing Skin: no rash, nodule, warm and dry Neuro: cranial nerves 2-12 intact, speech is fluent, motor/sensory intact - Constitutional Vitals: Temp Pulse Resp BP Pulse Ox 98.1 F 85 22 138/73 100 10/10/18 16:40 10/10/18 16:40 10/10/18 16:40 10/10/18 16:40 10/10/18 16:40 Results - Labs CBC & Chem 7: 10/10/18 14:49 10/10/18 14:49 Labs: Abnormal lab results 10/10/18 10/10/18 10/10/18 Range/Units 14:49 14:49 18:45 RBC 5.16 H (3.65-5.03) M/mm3 MCV 73 L (84-94) fl MCH 23 L (28-32) pg MCHC 31 L (32-34) % RDW 17.3 H (13.2-15.2) % [place] % (Auto) 9.3 H (0.0-7.3) % Eos % (Auto) 4.8 H (0.0-4.3) % D-Dimer 427.14 H (0-234) ng/mlDDU BUN 35 H (9-20) mg/dL Creatinine 2.1 H (0.8-1.5) mg/dL Glucose 175 H (75-100) mg/dL Troponin T 0.033 H (0.00-0.029) ng/mL LDL Cholesterol Direct 46 L (50-130) mg/dL HDL Cholesterol 39 L (40-59) mg/dL - Imaging and Cardiology Chest x-ray: report reviewed Assessment and Plan v/q low probability Assessment Chest pain CHF, stable Hypertension Diabetes Chronic kidney disease ROEL H/o Renal cell Cancer Plan Admit to medicine Check cardiac enzymes, patient's valance cutter request stress test Check fingersticks and initiate insulin sliding scale, start CPAP Continue appropriate outpatient medications DVT prophylaxis
[2018-10-10 23:18] LABS: Creatine Kinase MB 7.7 ng/mL (0.0-4.0)
[2018-10-11] MEDS: PERCOCET 5/325 PO PRN ×4 (02:36→23:07)
[2018-10-11 06:43] LABS: Basophils % (Auto) 0.4 % (0.0-1.8); Eosinophils # (Auto) 0.3 K/mm3 (0.0-0.4); Eosinophils % (Auto) 6.4 % (0.0-4.3); Hemoglobin 11.2 gm/dl (11.8-15.2); Lymphocytes % (Auto) 36.8 % (13.4-35.0); Mean Corpuscular HGB Conc 32 % (32-34); Mean Corpuscular Volume 73 fl (84-94); Monocytes # (Auto) 0.6 K/mm3 (0.0-0.8); Monocytes % (Auto) 11.2 % (0.0-7.3); Platelet Count 181 K/mm3 (140-440); Red Blood Count 4.78 M/mm3 (3.65-5.03); Red Cell Distribution Width 17.1 % (13.2-15.2)
[2018-10-11 07:02] LABS: Calcium 8.7 mg/dL (8.4-10.2)
[2018-10-11 07:04] LABS: Creatine Kinase MB 6.3 ng/mL (0.0-4.0)
[2018-10-11] MEDS ORDERED: LOVENOX SUB-Q SCH (10:00)
[2018-10-11] MEDS: HumaLOG SUB-Q SCH ×4 (10:02→21:47)
[2018-10-11] MEDS: LOVENOX SUB-Q SCH (10:03)
[2018-10-11] MEDS: SODIUM CHLORIDE FLUSH SYRINGE 10 ML IV SCH ×2 (10:08→21:45)
[2018-10-11] MEDS ORDERED: PROAIR IH PRN (10:19)
[2018-10-11] MEDS ORDERED: NITROSTAT SL PRN (10:19)
--- NOTE | 2018-10-11 10:22 | Progress Note ---
Assessment and Plan Assessment and plan: 58-year-old male patient with significant history of hypertension diabetes mellitus congestive heart failure renal cell carcinoma status post sleep apnea was admitted through emergency room chest pain, workup is consistent with elevated d-dimer's, VQ scan low probability for PE Stress test scheduled, however due to VQ scan status status visit is scheduled for tomorrow --Atypical chest pain; rule out acute coronary syndrome Serial cardiac enzymes, current medications Stress test tomorrow, cardiology consult if needed --Hypertension; moderate control, continue current antihypertensives When necessary medications --Acute on chronic systolic congestive heart failure; ejection fraction 30-35% Continue antiseizure medications, input output monitoring, fluid restriction Supportive care --Elevated d-dimer's; VQ scan negative for PE Check Lower extremity to rule out DVT --Moderate obesity; dietary modification and exercise as tolerated Weight reduction when medically stable --Ongoing tobacco use; smoking cessation counseling done Spent 10 minutes, nicotine patch as needed --DVT prophylaxis; Lovenox Monitor closely and adjust the management as needed Plan of care reviewed with the patient and his nurse Disposition; follow stress test, if negative and patient is stable DC home, if patient's symptoms do not improve, consult cardiology History Interval history: Patient seen and examined medical records reviewed Admitted with atypical chest pain, VQ scan chest negative for PE Unable to schedule stress test secondary to VQ scan Stress test reschedule for tomorrow Hospitalist Physical - Constitutional Vitals: Temp Pulse Resp BP Pulse Ox 98.2 F 79 18 163/88 96 10/11/18 09:38 10/11/18 09:38 10/11/18 09:38 10/11/18 09:38 10/11/18 09:38 General appearance: Present: no acute distress, well-nourished, obese - EENT Eyes: Present: PERRL, EOM intact - Neck Neck: Present: supple, normal ROM - Respiratory Respiratory effort: normal Respiratory: bilateral: diminished, rales, negative: rhonchi, wheezing - Cardiovascular Rhythm: regular Heart Sounds: Present: S1 & S2 - Extremities Extremities: no ischemia, No edema - Abdominal General gastrointestinal: soft, non-tender, non-distended, normal bowel sounds - Integumentary Integumentary: Present: clear, warm - Psychiatric Psychiatric: appropriate mood/affect, cooperative - Neurologic Neurologic: CNII-XII intact, moves all extremities Results - Labs CBC & Chem 7: 10/11/18 05:33 10/11/18 05:33 Labs: Laboratory Last Values WBC 5.3 K/mm3 (4.5-11.0) 10/11/18 05:33 RBC 4.78 M/mm3 (3.65-5.03) 10/11/18 05:33 Hgb 11.2 gm/dl (11.8-15.2) L 10/11/18 05:33 Hct 35.0 % (35.5-45.6) L 10/11/18 05:33 MCV 73 fl (84-94) L 10/11/18 05:33 MCH 23 pg (28-32) L 10/11/18 05:33 MCHC 32 % (32-34) 10/11/18 05:33 RDW 17.1 % (13.2-15.2) H 10/11/18 05:33 Plt Count 181 K/mm3 (140-440) 10/11/18 05:33 Lymph % (Auto) 36.8 % (13.4-35.0) H 10/11/18 05:33 Moffat % (Auto) 11.2 % (0.0-7.3) H 10/11/18 05:33 Eos % (Auto) 6.4 % (0.0-4.3) H 10/11/18 05:33 Baso % (Auto) 0.4 % (0.0-1.8) 10/11/18 05:33 Lymph # 2.0 K/mm3 (1.2-5.4) 10/11/18 05:33 Moffat # 0.6 K/mm3 (0.0-0.8) 10/11/18 05:33 Eos # 0.3 K/mm3 (0.0-0.4) 10/11/18 05:33 Baso # 0.0 K/mm3 (0.0-0.1) 10/11/18 05:33 Seg Neutrophils % 45.2 % (40.0-70.0) 10/11/18 05:33 Seg Neutrophils # 2.4 K/mm3 (1.8-7.7) 10/11/18 05:33 427.14 ng/mlDDU (0-234) H 10/10/18 18:45 Sodium 138 mmol/L (137-145) 10/11/18 05:33 Potassium 4.4 mmol/L (3.6-5.0) 10/11/18 05:33 Chloride 104.6 mmol/L (98-107) 10/11/18 05:33 Carbon Dioxide 25 mmol/L (22-30) 10/11/18 05:33 13 mmol/L 10/11/18 05:33 BUN 32 mg/dL (9-20) H 10/11/18 05:33 1.9 mg/dL (0.8-1.5) H 10/11/18 05:33 Estimated GFR 44 ml/min 10/11/18 05:33 17 % 10/11/18 05:33 Glucose 215 mg/dL (75-100) H 10/11/18 05:33 POC Glucose 153 (70-105) H 10/11/18 07:48 Calcium 8.7 mg/dL (8.4-10.2) 10/11/18 05:33 798 units/L (55-170) H 10/11/18 05:33 CK-MB (CK-2) 6.3 ng/mL (0.0-4.0) H 10/11/18 05:33 CK-MB (CK-2) Rel Index 0.7 (0-4) 10/11/18 05:33 < 0.010 ng/mL (0.00-0.029) 10/11/18 05:33 Triglycerides 128 mg/dL (2-149) 10/10/18 14:49 Cholesterol 99 mg/dL (50-199) 10/10/18 14:49 46 mg/dL (50-130) L 10/10/18 14:49 39 mg/dL (40-59) L 10/10/18 14:49 2.53 % 10/10/18 14:49 Active Medications - Current Medications Current Medications: Generic Name Dose Route Start Last Admin Trade Name Freq PRN Reason Stop Dose Admin Acetaminophen 650 mg 10/10/18 22:15 Tylenol PO Q4H PRN Pain MILD(1-3)/Fever >100.5/GUZMAN Albuterol 2 puff 10/11/18 10:19 Proair IH Q4H PRN Shortness Of Breath Amlodipine Besylate mg 10/12/18 10:00 Norvasc PO DAILY [facility] Aspirin mg 10/12/18 10:00 Halfprin Ec PO DAILY [facility] Atorvastatin Calcium 40 mg 10/11/18 22:00 Lipitor PO QHS [facility] Carvedilol 12.5 mg 10/11/18 22:00 Coreg PO BID [facility] Dextrose 50 ml 10/10/18 22:15 D50w (25gm) Syringe IV PRN PRN Hypoglycemia Enoxaparin Sodium 40 mg 10/11/18 10:00 10/11/18 10:03 Lovenox SUB-Q 40 mg QDAY@1000 [facility] Administration Furosemide 40 mg 10/12/18 10:00 Lasix PO QDAY [facility] Hydralazine HCl mg 10/11/18 22:00 Apresoline PO BID [facility] Insulin Human Lispro 0 unit 10/11/18 07:30 10/11/18 10:02 Humalog SUB-Q Not Given ACHS [facility] Protocol Nitroglycerin 0.4 mg 10/10/18 22:11 Nitrostat SL .Q5MIN PRN Chest Pain Nitroglycerin 0.4 mg 10/11/18 10:19 Nitrostat SL Q5M PRN Chest pain Ondansetron HCl 4 mg 10/10/18 22:15 Zofran IV Q8H PRN Nausea And Vomiting Oxycodone/Acetaminophen 1 tab 10/10/18 22:15 10/11/18 07:13 Percocet 5/325 PO 1 tab Q4H PRN Administration Pain, Moderate (4-6) Sodium Chloride 10 ml 10/11/18 10:00 10/11/18 10:08 Sodium Chloride Flush Syringe 10 Ml IV 10 ml BID [facility] Administration Sodium Chloride 10 ml 10/10/18 22:15 Sodium Chloride Flush Syringe 10 Ml IV PRN PRN LINE FLUSH Spironolactone 25 mg 10/12/18 10:00 Aldactone PO QDAY [facility]
[2018-10-11] MEDS ORDERED: PROVENTIL IH PRN (10:50)
[2018-10-11] MEDS: APRESOLINE PO SCH ×2 (11:47→21:45)
[2018-10-11] MEDS: COREG PO SCH ×2 (11:47→21:44)
[2018-10-11] MEDS: ENTRESTO 24 - 26 MG PO SCH ×2 (11:48→21:45)
[2018-10-11] MEDS ORDERED: TESSALON PERLES PO ONE (16:30)
[2018-10-11] MEDS: TESSALON PERLES PO SCH (21:45)
[2018-10-12] MEDS: PERCOCET 5/325 PO PRN ×2 (04:07→14:52)
[2018-10-12] MEDS: TESSALON PERLES PO SCH ×2 (06:37→14:52)
[2018-10-12] MEDS ORDERED: LEXISCAN IV ONE ×2 (07:24→07:32)
[2018-10-12] MEDS: HumaLOG SUB-Q SCH ×2 (07:59→12:10)
[2018-10-12] MEDS ORDERED: LASIX PO SCH (10:00)
[2018-10-12] MEDS ORDERED: ALDACTONE PO SCH (10:00)
[2018-10-12] MEDS ORDERED: NORVASC PO SCH (10:00)
[2018-10-12] MEDS ORDERED: HALFPRIN EC PO SCH (10:00)
--- NOTE | 2018-10-12 10:41 | Vascular Lab Report ---
DUPLEX DOPPLER LOWER EXTREMITY VEINS, BILATERAL INDICATION: elevated d dimers/r/o DVT. Swelling TECHNIQUE: Duplex doppler imaging was performed through the veins of both lower extremities using venous aleja rojelio and other maneuvers. COMPARISON: No relevant prior imaging study available. FINDINGS: Right Common femoral vein: Negative. Right Superficial femoral vein: Negative. Right Popliteal vein: Negative. Right Calf veins: Negative. Left Common femoral vein: Negative. Left Superficial femoral vein: Negative. Left Popliteal vein: Negative. Left Calf veins: Negative. Additional findings: None.. IMPRESSION: No sonographic evidence for DVT in either lower extremity. Signer Name: Harjinder Perales Jr, MD Signed: 10/12/2018 10:36 AM Workstation Name: [id number]
[2018-10-12 12:07] VITALS: BP 156/79
[2018-10-12] MEDS: APRESOLINE PO SCH (12:09)
[2018-10-12] MEDS: LOVENOX SUB-Q SCH (12:09)
[2018-10-12] MEDS: COREG PO SCH (12:09)
[2018-10-12] MEDS: SODIUM CHLORIDE FLUSH SYRINGE 10 ML IV SCH (12:10)
[2018-10-12] MEDS: ENTRESTO 24 - 26 MG PO SCH (12:10)
--- NOTE | 2018-10-12 14:55 | Discharge Summary ---
Providers - Providers Date of Admission: 10/10/18 22:15 Date of discharge: 10/12/18 Attending physician: ESME MANCILLA [facility] Condition: Stable Pertinent studies: VQ scan Exercise stress test LE venous doppler CXR Hospital course: 58-year-old male patient with significant history of hypertension diabetes mellitus congestive heart failure renal cell carcinoma status post sleep apnea was admitted through emergency room chest pain, workup was consistent with elevated d-dimer's, VQ scan showed low probability for PE, negative venous doppler for LE Exercise Stress test showed no sign of ischemia. He was then discharged home in stable condition with PPI for possible GERD. Discharge diagnosis: --Atypical chest pain; ruled out acute coronary syndrome negative Serial cardiac enzymes, negative VQ scan Stress test was normal, will do outpt f/u --Hypertension; moderate control, continue current antihypertensives --Acute on chronic systolic congestive heart failure; ejection fraction 30-35% on echo 08/2018 placed on input output monitoring, fluid restriction, diuresis --Elevated d-dimer's; VQ scan negative for PE, Lower extremity to ruled out DVT --Moderate obesity; dietary modification and exercise as tolerated --Ongoing tobacco use; smoking cessation counseling done Spent 10 minutes, nicotine patch as needed --DVT prophylaxis; Lovenox Disposition; home with outpt followup with [facility] Hospitalist Physical General appearance: Present: no acute distress, well-nourished, obese - EENT Eyes: Present: PERRL, EOM intact - Neck Neck: Present: supple, normal ROM - Respiratory Respiratory effort: normal Respiratory: bilateral: diminished, rales, negative: rhonchi, wheezing - Cardiovascular Rhythm: regular Heart Sounds: Present: S1 & S2 - Extremities Extremities: no ischemia, No edema - Abdominal General gastrointestinal: soft, non-tender, non-distended, normal bowel sounds - Integumentary Integumentary: Present: clear, warm - Psychiatric Psychiatric: appropriate mood/affect, cooperative - Neurologic Neurologic: CNII-XII intact, moves all extremities Disposition: TO HOME OR SELFCARE Time spent for discharge: 34 minutes Core Measure Documentation - Palliative Care Palliative Care/ Comfort Measures: Not Applicable - Core Measures Any of the following diagnoses?: none Exam - Constitutional Vitals: Temp Pulse Resp BP Pulse Ox 98.0 F 85 16 156/79 100 10/12/18 12:03 10/12/18 12:09 10/12/18 12:03 10/12/18 12:09 10/12/18 12:03 Plan Follow up with: NANDA BARNETT MD [Primary Care Provider] - 3-5 Days
--- NOTE | 2018-10-13 00:24 | Treadmill Report ---
LEFT VENTRICLE: Left ventricle is severely dilated. Perfusion study demonstrates fairly homogeneous uptake of the tracer in all segments, no significant perfusion defects were identified. Gated analysis demonstrates severe left ventricular systolic dysfunction, ejection fraction 28%. CONCLUSION: Evidence of a severe dilated cardiomyopathy, severe left ventricular systolic dysfunction, ejection fraction 28%. There is well preserved perfusion in all myocardial segments, suggesting a dilated nonischemic cardiomyopathy. Clinical correlation is recommended. [facility]# [id number] CA/NTS
== END 2018-10-12 15:04 | disposition home or self-care (01) | DRG 291 ==
LOC: ED 14:13 → 4A 22:15
PROVIDERS: ADMIT Internal Medicine; ATTEND Internal Medicine
DX: I13.0 Hypertensive heart and chronic kidney disease with heart failure and stage 1 through stage 4 chronic kidney disease, or unspecified chronic kidney disease (principal); I50.23 Acute on chronic systolic (congestive) heart failure; Z68.41 Body mass index [BMI] 40.0-44.9, adult; I42.0 Dilated cardiomyopathy; E66.9 Obesity, unspecified; E66.8 Other obesity; G47.33 Obstructive sleep apnea (adult) (pediatric); I25.10 Atherosclerotic heart disease of native coronary artery without angina pectoris; R07.89 Other chest pain; N18.9 Chronic kidney disease, unspecified; F17.210 Nicotine dependence, cigarettes, uncomplicated; Z82.49 Family history of ischemic heart disease and other diseases of the circulatory system; Z95.810 Presence of automatic (implantable) cardiac defibrillator; Z90.5 Acquired absence of kidney; Z79.51 Long term (current) use of inhaled steroids; Z79.82 Long term (current) use of aspirin; Z79.899 Other long term (current) drug therapy; Z71.6 Tobacco abuse counseling
CPT/HCPCS: 36415; 71046; 78452; 78582; 80048; 80061; 82550; 82553; 82962; 84484; 85025; 85379; 87116; 93005; 93010; 93017; 93970; 94660; G0378; A9270-GY; A9502; A9540; A9558; J1650; J1815; J2270; J2405; J2785

== ENCOUNTER 2018-10-29 18:59 | Inpatient (IN) | payer MEDICARE ==
--- NOTE | 2018-10-29 19:01 | Emergency Department Report ---
Blank Doc - Documentation Documentation: This is a 58-year-old male that presents with left sided weakness and pain. This initial assessment/diagnostic orders/clinical plan/treatment(s) is/are subject to change based on patient's health status, clinical progression and re- assessment by fellow clinical providers in the ED. Further treatment and workup at subsequent clinical providers discretion. Patient/guardians urged not to elope from the ED as their condition may be serious if not clinically assessed and managed. Initial orders include: 1- Patient sent to [facility] for further evaluation and treatment 2- stroke protocol initiated 3- stroke labs 4- UA
--- NOTE | 2018-10-29 19:26 | Emergency Department Report ---
- General Stated complaint: POSS STROKE Time Seen by Provider: 10/29/18 19:15 Source: patient Mode of arrival: Stretcher Limitations: No Limitations - History of Present Illness Initial comments: She is a 58-year-old male up since emergency with complaints of left arm weakness going on 2 days. The patient states his symptoms started at 8:30 Tuesday morning, 10/27/2018. Patient states today his symptoms worsened. Last known well time 08:30, 10/27/2018. Patient denies chest pain. Patient denies shortness of breath. Patient states his symptoms are better with rest and worse with exertion and movement. MD Complaint: focal weakness -: Sudden Location: LLE Severity: severe Quality: constant Consistency: constant Improves with: rest Worsens with: movement Associated Symptoms: denies other symptoms. denies: chest pain, confusion, dark stools, diaphoresis, dysuria, easy bruising, fever/chills, headaches, loss of appetite, nausea/vomiting, myalgias, rash, shortness of breath, syncope - Related Data Home Medications Medication Instructions Recorded Confirmed Last Taken Sacubitril/Valsartan [Entresto 24 1 tab PO BID 08/06/18 10/11/18 10/10/18 08:00 - 26 mg] Fluticasone Propionate [Flovent 100 mcg IH BID PRN 10/11/18 10/11/18 10/10/18 08:00 Diskus] Nitroglycerin [Nitrostat] 0.4 mg SL Q5M PRN 10/11/18 10/11/18 10/10/18 08:00 Oxycodone HCl/Acetaminophen 1 each PO Q6HR PRN 10/11/18 10/11/18 10/10/18 08:00 [Percocet 10/325 mg] Previous Rx's Medication Instructions Recorded Last Taken Type ALBUTEROL Inhaler(NF) [VENTOLIN 2 puff IH Q4H PRN #1 inha 08/08/18 10/10/18 08:00 Rx Inhaler(NF)] Aspirin EC 1 tab PO DAILY #30 08/08/18 10/10/18 08:00 Rx AtorvaSTATin [Lipitor] 40 mg PO QHS #30 tab 08/08/18 10/09/18 22:00 Rx Carvedilol [Coreg] 12.5 mg PO BID #60 tab 08/08/18 10/10/18 08:00 Rx Furosemide [Lasix TAB] 40 mg PO QDAY #30 tablet 08/08/18 10/10/18 08:00 Rx Spironolactone [Aldactone] 25 mg PO QDAY #30 tablet 08/08/18 10/10/18 08:00 Rx amLODIPine [Norvasc] 1 tab PO DAILY #30 08/08/18 10/10/18 08:00 Rx hydrALAZINE [Apresoline TAB] 1 tab PO BID #60 tab 08/08/18 10/10/18 08:00 Rx Pantoprazole [Protonix] 40 mg PO QDAY #30 tablet 10/12/18 Unknown Rx Allergies Allergy/AdvReac Type Severity Reaction Status Date / Time No Known Allergies Allergy Unverified 08/06/18 18:35 ED Review of Systems ROS: Stated complaint: POSS STROKE Other details as noted in HPI Constitutional: weakness. denies: chills, fever Eyes: denies: eye pain, eye discharge, vision change ENT: denies: ear pain, throat pain Respiratory: denies: cough, shortness of breath, wheezing Cardiovascular: denies: chest pain, palpitations Endocrine: no symptoms reported Gastrointestinal: denies: abdominal pain, nausea, diarrhea Genitourinary: denies: urgency, dysuria Musculoskeletal: denies: back pain, joint swelling, arthralgia Skin: denies: rash, lesions Neurological: weakness. denies: headache, paresthesias Psychiatric: denies: anxiety, depression Hematological/Lymphatic: denies: easy bleeding, easy bruising ED Past Medical Hx - Past Medical History Previous Medical History?: Yes Hx Hypertension: Yes Hx Congestive Heart Failure: Yes Hx Diabetes: Yes Hx Renal Disease: Yes Hx Arthritis: Yes Hx Asthma: No Hx COPD: Yes Hx HIV: No - Surgical History Past Surgical History?: Yes Hx Open Heart Surgery: Yes Hx Pacemaker: Yes Hx Internal Defibrillator: Yes Additional Surgical History: pacemaker - Family History Family history: no significant - Social History Smoking Status: Current Every Day Smoker Substance Use Type: None - Medications Home Medications: Home Medications Medication Instructions Recorded Confirmed Last Taken Type Sacubitril/Valsartan [Entresto 24 1 tab PO BID 08/06/18 10/11/18 10/10/18 08:00 History - 26 mg] ALBUTEROL Inhaler(NF) [VENTOLIN 2 puff IH Q4H PRN #1 inha 08/08/18 10/11/18 10/10/18 08:00 Rx Inhaler(NF)] Aspirin EC 1 tab PO DAILY #30 08/08/18 10/11/18 10/10/18 08:00 Rx AtorvaSTATin [Lipitor] 40 mg PO QHS #30 tab 08/08/18 10/11/18 10/09/18 22:00 Rx Carvedilol [Coreg] 12.5 mg PO BID #60 tab 08/08/18 10/11/18 10/10/18 08:00 Rx Furosemide [Lasix TAB] 40 mg PO QDAY #30 tablet 08/08/18 10/11/18 10/10/18 08:00 Rx Spironolactone [Aldactone] 25 mg PO QDAY #30 tablet 08/08/18 10/11/18 10/10/18 08:00 Rx amLODIPine [Norvasc] 1 tab PO DAILY #30 08/08/18 10/11/18 10/10/18 08:00 Rx hydrALAZINE [Apresoline TAB] 1 tab PO BID #60 tab 08/08/18 10/11/18 10/10/18 08:00 Rx Fluticasone Propionate [Flovent 100 mcg IH BID PRN 10/11/18 10/11/18 10/10/18 08:00 History Diskus] Nitroglycerin [Nitrostat] 0.4 mg SL Q5M PRN 10/11/18 10/11/18 10/10/18 08:00 His tory Oxycodone HCl/Acetaminophen 1 each PO Q6HR PRN 10/11/18 10/11/18 10/10/18 08:00 History [Percocet 10/325 mg] Pantoprazole [Protonix] 40 mg PO QDAY #30 tablet 10/12/18 Unknown Rx ED Physical Exam - General Limitations: No Limitations General appearance: alert, in no apparent distress - Head Head exam: Present: atraumatic, normocephalic - Eye Eye exam: Present: normal appearance - ENT ENT exam: Present: mucous membranes moist - Neck Neck exam: Present: normal inspection - Respiratory Respiratory exam: Present: normal lung sounds bilaterally. Absent: respiratory distress - Cardiovascular Cardiovascular Exam: Present: regular rate, normal rhythm. Absent: systolic murmur, diastolic murmur, rubs, gallop - GI/Abdominal GI/Abdominal exam: Present: soft, normal bowel sounds - Rectal Rectal exam: Present: deferred - Extremities Exam Extremities exam: Present: normal inspection - Back Exam Back exam: Present: normal inspection - Neurological Exam Neurological exam: Present: alert, oriented X3 - Psychiatric Psychiatric exam: Present: normal affect, normal mood - Skin Skin exam: Present: warm, dry, intact, normal color. Absent: rash - Assessment Assessment Interval: Baseline - Level of Consciousness 1a. Level of Consciousness: alert/keenly responsive - LOC Questions 1b. LOC Questions: answers both correctly - LOC Command 1c. LOC Commands: performs tasks correctly - Best Gaze 2. Best Gaze: normal - Visual 3. Visual: no visual loss - Facial Palsy 4. Facial Palsy: normal symmetrical movement - Motor Arm 5a. Motor Arm Left: drift 5b. Motor Arm Right: no drift - Motor Leg 6a. Motor Leg Left: drift 6b. Motor Leg Right: no drift - Limb Ataxia 7. Limb Ataxia: absent - Sensory 8. Sensory: normal - Best Language 9. Best Language: no aphasia - Dysarthria 10. Dysarthria: normal - Extinction and Inattention 11. Extinction/Inattention: no abnormality - Scoring Total Score: 2 Stroke Severity: Minor Stroke ED Course Vital Signs 10/29/18 10/29/18 19:38 20:00 Temperature 97.9 F Pulse Rate 94 H 96 H Respiratory 20 20 Rate Blood Pressure 179/88 Blood Pressure 160/88 [Left] O2 Sat by Pulse 99 98 Oximetry - Reevaluation(s) Reevaluation #1: Patient resting in bed. 10/29/18 20:51 - Consultations Consultation #1: I discussed the case with neurology and neurology recommends admission for stroke workup and aspirin and blood pressure control 10/29/18 19:45 Consultation #2: Hospitalist consulted for admission. Hospitalist to admit patient. 10/29/18 21:05 ED Medical Decision Making - Lab Data Result diagrams: 10/29/18 19:47 10/29/18 19:47 - EKG Data -: EKG Interpreted by Oh EKG shows normal: sinus rhythm, axis, intervals, QRS complexes, ST-T waves Rate: normal - EKG Data Interpretation: LVH - Radiology Data Radiology results: report reviewed CT head/brain wo con INDICATION / CLINICAL INFORMATION: 58 years Male; Stroke symptoms. TECHNIQUE: Routine CT head without contrast. All CT scans at this location are performed using CT dose reduction for ALARA by means of automated exposure control. COMPARISON: None. FINDINGS: BRAIN / INTRACRANIAL CONTENTS: No acute hemorrhage, mass effect, midline shift, hydrocephalus, or acute, large territorial infarct. No chronic infarct or focal atrophy. Normal brain volume and ventricular/sulcal size for age. No significant white matter abnormality. Small dural calcification seen along the anterior clinoid on the left-of no clinical significance. CRANIOCERVICAL JUNCTION: No significant abnormality. ORBITS: No significant abnormality of visualized orbits. SINUSES / MASTOIDS: No significant abnormality of the visualized paranasal sinuses or mastoid air cells. ADDITIONAL FINDINGS: None. IMPRESSION: 1. No focal mass, hemorrhage, hydrocephalus, or acute, large territorial infarct. - Medical Decision Making Patient is a 58-year-old male that presents with left arm weakness. Patient was seen by her neurologist and she recommended admission for stroke. Patient was outside the window for TPA. Patient given blood pressure medications for his elevated blood pressure. Patient's labs unremarkable except for renal insufficiency and elevated CK. Patient's EKG sinus rhythm. Head CT done and negative. - Differential Diagnosis weakness. CVA. Critical Care Time: Yes Critical care attestation.: If time is entered above; I have spent that time in minutes in the direct care of this critically ill patient, excluding procedure time. Critical Care Time: 45 minutes ED Disposition Clinical Impression: Weakness, Left arm weakness CVA (cerebral vascular accident) Qualifiers: CVA mechanism: unspecified Qualified Code(s): I63.9 - Cerebral infarction, unspecified Hypertension Qualifiers: Hypertension type: essential hypertension Qualified Code(s): I10 - Essential (primary) hypertension Disposition: OP ADMIT IP TO THIS HOSP Is pt being admited?: Yes Does the pt Need Aspirin: No Condition: Critical Instructions: Hypertension (ED) Time of Disposition: 21:10
--- NOTE | 2018-10-29 19:45 | Cat Scan Report ---
CT head/brain wo con INDICATION / CLINICAL INFORMATION: 58 years Male; Stroke symptoms. TECHNIQUE: Routine CT head without contrast. All CT scans at this location are performed using CT dos e reduction for ALARA by means of automated exposure control. COMPARISON: None. FINDINGS: BRAIN / INTRACRANIAL CONTENTS: No acute hemorrhage, mass effect, midline shift, hydrocephalus, or acu te, large territorial infarct. No chronic infarct or focal atrophy. Normal brain volume and ventricul ar/sulcal size for age. No significant white matter abnormality. Small dural calcification seen along the anterior clinoid on the left-of no clinical significance. CRANIOCERVICAL JUNCTION: No significant abnormality. ORBITS: No significant abnormality of visualized orbits. SINUSES / MASTOIDS: No significant abnormality of the visualized paranasal sinuses or mastoid air talia ls. ADDITIONAL FINDINGS: None. IMPRESSION: 1. No focal mass, hemorrhage, hydrocephalus, or acute, large territorial infarct. Signer Name: Miki Herman MD, III Signed: 10/29/2018 7:40 PM Workstation Name: [id number]
--- NOTE | 2018-10-29 19:55 | Emergency Department Report ---
ED Neuro Deficit HPI - General Chief Complaint: Neuro Symptoms/Deficit Stated Complaint: POSS STROKE Time Seen by Provider: 10/29/18 19:15 Source: patient, family Mode of arrival: Ambulatory Limitations: Physical Limitation - History of Present Illness Initial Comments: [facility] TeleNeurology Consult Services The patient was informed the neurology consult would happen via TeleHealth by way of interactive audio and visual telecommunications and consented to receiving care in this manner for acute stroke protocol. DATE: October 29 2018 Impression: possible minor stroke vs myelopathy- the patient has left-sided weakness and numbness in the arm and leg along with numbness in the same distribution and also some discomfort certainly could be a thalamic stroke syndrome versus a myelopathic process. He'll need admission for stroke workup and inpatient neurology consultation. Would continue antiplatelet therapy and allow permissiv e hypertension per non-TPA stroke protocol at least until 8:30 tomorrow morning which is 48 hours post symptom onset. He will need physical and occupational therapy evaluation. Not a tpa candidate due to:LKN over 24 hours ago Symptoms (not) consistent with LVO therefore no role for AIXA Differential Diagnosis: Right hemispheric subcortical stroke syndrome versus myelopathic process 1. Cardioembolic stroke 2. Small vessel disease/lacune 3. Thromboembolic, [id number] mechanism 4. Hypercoagulable state-related infarct 5. Transient ischemic attack 6. Thrombotic mechanism, large artery disease Comments: Last known normal Tuesday at 08:30 Door time 18:59 [facility] contacted: 19:31 [facility] at bedside: 19:34 NIHSS assessment time: 19:34 Recommendations: -Continue full-strength aspirin -Admit for stroke workup inpatient neurology consultation -Consider C-spine imaging deferred inpatient neurology -Permissive hypertension for 48 hours post symptom onset Inpatient neurology consultation Inpatient stroke evaluation as per Neurology/ Internal Medicine Discussed with ED MD Please call with questions CC left-sided weakness pain History of Present Illness Patient is a 58-year-old gentleman with a history of hypertension, diabetes, obstructive sleep apnea, 1 kidney who takes aspirin 81 mg daily. He also has a pacemaker for low heart rate. He said that on Tuesday morning at around 08:30 he developed some left arm discomfort which he thought was initially where his pacemaker was. This ran down into his arm and then he developed weakness yesterday that worsened over the course of today. He denies any headache or chest pain. No neck pain. The arm does hurt more when he tries to move it. No neck pain. No change in bowel or bladder function. His blood pressure is 179/88. Diagnostic: CT head without contrast no acute changes Exam: 1a- LOC: Keenly responsive - =0 1b- LOC questions: Answers both questions correctly - 0 1c- LOC commands- Performs both tasks correctly- 0 2- Gaze: Normal; no gaze paresis or gaze deviation - 0 3- Visual [place]: normal, no Visual field deficit - 0 4- Facial movements: no facial palsy - 0 5- Upper limb motor - left upper extremity=1 6- Lower limb motor - left lower extremity=1 7- Limb Coordination: absent ataxia - 0 8- Sensory :dec left arm /leg=1 9- Language - No aphasia - 0 10- Speech - No dysarthria -0 11- Neglect / Extinction - none found -0 NIHSS score 3 Medical Decision Making: - Extensive number of diagnosis or management options are considered above. - Extensive amount of complex data reviewed. - High risk of complication and/or morbidity or mortality are associated with differential diagnostic considerations above. - There may be Uncertain outcome and increased probability of prolonged functional impairment or high probability of severe prolonged functional impairment associated with some of these differential diagnosis. Medical Data Reviewed: 1.Data reviewed include clinical labs, radiology, Medical Tests; 2.Tests results discussed w/performing or interpreting physician; 3.Obtaining/reviewing old medical records; 4.Obtaining case history from another source; 5.Independent review of image, tracing or specimen. Patient was informed the Neurology Consult would happen via telehealth (remote video) and consented to receiving care in this manner. - Related Data Home Medications: Home Medications Medication Instructions Recorded Confirmed Last Taken Sacubitril/Valsartan [Entresto 24 1 tab PO BID 08/06/18 10/11/18 10/10/18 08:00 - 26 mg] Fluticasone Propionate [Flovent 100 mcg IH BID PRN 10/11/18 10/11/18 10/10/18 08:00 Diskus] Nitroglycerin [Nitrostat] 0.4 mg SL Q5M PRN 10/11/18 10/11/18 10/10/18 08:00 Oxycodone HCl/Acetaminophen 1 each PO Q6HR PRN 10/11/18 10/11/18 10/10/18 08:00 [Percocet 10/325 mg] Previous Rx's Medication Instructions Recorded Last Taken Type ALBUTEROL Inhaler(NF) [VENTOLIN 2 puff IH Q4H PRN #1 inha 08/08/18 10/10/18 08:00 Rx Inhaler(NF)] Aspirin EC 1 tab PO DAILY #30 08/08/18 10/10/18 08:00 Rx AtorvaSTATin [Lipitor] 40 mg PO QHS #30 tab 08/08/18 10/09/18 22:00 Rx Carvedilol [Coreg] 12.5 mg PO BID #60 tab 08/08/18 10/10/18 08:00 Rx Furosemide [Lasix TAB] 40 mg PO QDAY #30 tablet 08/08/18 10/10/18 08:00 Rx Spironolactone [Aldactone] 25 mg PO QDAY #30 tablet 08/08/18 10/10/18 08:00 Rx amLODIPine [Norvasc] 1 tab PO DAILY #30 08/08/18 10/10/18 08:00 Rx hydrALAZINE [Apresoline TAB] 1 tab PO BID #60 tab 08/08/18 10/10/18 08:00 Rx Pantoprazole [Protonix] 40 mg PO QDAY #30 tablet 10/12/18 Unknown Rx Allergies/Adverse Reactions: Allergies Allergy/AdvReac Type Severity Reaction Status Date / Time No Known Allergies Allergy Unverified 08/06/18 18:35 ED Review of Systems ROS: Stated complaint: POSS STROKE Other details as noted in HPI ED Past Medical Hx - Past Medical History Previous Medical History?: Yes Hx Hypertension: Yes Hx Heart Attack/AMI: Yes Hx Congestive Heart Failure: Yes Hx Diabetes: Yes Hx Renal Disease: Yes (Has 1 kidney in left) Hx Arthritis: Yes Hx Asthma: No Hx COPD: Yes Hx HIV: No - Surgical History Past Surgical History?: Yes Hx Open Heart Surgery: Yes Hx Pacemaker: Yes Hx Internal Defibrillator: Yes Additional Surgical History: pacemaker - Social History Smoking Status: Current Every Day Smoker - Medications Home Medications: Home Medications Medication Instructions Recorded Confirmed Last Taken Type Sacubitril/Valsartan [Entresto 24 1 tab PO BID 08/06/18 10/11/18 10/10/18 08:00 History - 26 mg] ALBUTEROL Inhaler(NF) [VENTOLIN 2 puff IH Q4H PRN #1 inha 08/08/18 10/11/18 10/10/18 08:00 Rx Inhaler(NF)] Aspirin EC 1 tab PO DAILY #30 08/08/18 10/11/18 10/10/18 08:00 Rx AtorvaSTATin [Lipitor] 40 mg PO QHS #30 tab 08/08/18 10/11/18 10/09/18 22:00 Rx Carvedilol [Coreg] 12.5 mg PO BID #60 tab 08/08/18 10/11/18 10/10/18 08:00 Rx Furosemide [Lasix TAB] 40 mg PO QDAY #30 tablet 08/08/18 10/11/18 10/10/18 08:00 Rx Spironolactone [Aldactone] 25 mg PO QDAY #30 tablet 08/08/18 10/11/18 10/10/18 08:00 Rx amLODIPine [Norvasc] 1 tab PO DAILY #30 08/08/18 10/11/18 10/10/18 08:00 Rx hydrALAZINE [Apresoline TAB] 1 tab PO BID #60 tab 08/08/18 10/11/18 10/10/18 08:00 Rx Fluticasone Propionate [Flovent 100 mcg IH BID PRN 10/11/18 10/11/18 10/10/18 08:00 History Diskus] Nitroglycerin [Nitrostat] 0.4 mg SL Q5M PRN 10/11/18 10/11/18 10/10/18 08:00 History Oxycodone HCl/Acetaminophen 1 each PO Q6HR PRN 10/11/18 10/11/18 10/10/18 08:00 History [Percocet 10/325 mg] Pantoprazole [Protonix] 40 mg PO QDAY #30 tablet 10/12/18 Unknown Rx ED Neuro Physical Exam - General Limitations: Physical Limitation Suspected Stroke: Yes - NIHSS Assessment Interval: Baseline 1a. Level of Consciousness: alert/keenly responsive 1b. LOC Questions: answers both correctly 1c. LOC Commands: performs tasks correctly 2. Best Gaze: normal 3. Visual: no visual loss 4. Facial Palsy: normal symmetrical movement 5b. Motor Arm Right: no drift 5a. Motor Arm Left: drift 6a. Motor Leg Left: drift 6b. Motor Leg Right: no drift 7. Limb Ataxia: absent 8. Sensory: mild/moderate sensory loss 9. Best Language: no aphasia 10. Dysarthria: normal 11. Extinction/Inattention: no abnormality Total Score: 3 Stroke Severity: Minor Stroke ED Course Vital Signs 10/29/18 19:38 Temperature 97.9 F Pulse Rate 94 H Respiratory 20 Rate Blood Pressure 179/88 O2 Sat by Pulse 99 Oximetry Critical care attestation.: If time is entered above; I have spent that time in minutes in the direct care of this critically ill patient, excluding procedure time. ED Disposition Clinical Impression: Stroke Qualifiers: CVA mechanism: unspecified Qualified Code(s): I63.9 - Cerebral infarction, unspecified Disposition: DC-09 OP ADMIT IP TO THIS HOSP Is pt being admited?: Yes Condition: Stable Referrals: PRIMARY CARE, [Primary Care Provider] - 3-5 Days
[2018-10-29 20:05] LABS: Basophils % (Auto) 0.7 % (0.0-1.8); Eosinophils # (Auto) 0.3 K/mm3 (0.0-0.4); Eosinophils % (Auto) 4.6 % (0.0-4.3); Hematocrit 36.5 % (35.5-45.6); Hemoglobin 12.1 gm/dl (11.8-15.2); Lymphocytes # (Auto) 1.8 K/mm3 (1.2-5.4); Lymphocytes % (Auto) 29.7 % (13.4-35.0); Mean Corpuscular HGB Conc 33 % (32-34); Mean Corpuscular Volume 72 fl (84-94); Monocytes # (Auto) 0.4 K/mm3 (0.0-0.8); Monocytes % (Auto) 6.7 % (0.0-7.3); Platelet Count 206 K/mm3 (140-440); Red Blood Count 5.07 M/mm3 (3.65-5.03); Red Cell Distribution Width 16.8 % (13.2-15.2)
[2018-10-29] MEDS ORDERED: ASPIRIN PO ONE (20:06)
[2018-10-29] MEDS ORDERED: APRESOLINE IV ONE (20:06)
[2018-10-29 20:14] LABS: INR 1.02 (0.87-1.13)
[2018-10-29 20:15] LABS: Partial Thromboplastin Time 27.6 Sec. (24.2-36.6); Thrombin Time 15.4 Sec. (15.1-19.6)
[2018-10-29 20:22] LABS: Creatine Kinase MB 7.1 ng/mL (0.0-4.0)
[2018-10-29 20:24] LABS: Albumin 3.7 g/dL (3.9-5); BUN/Creatinine Ratio 14; Blood Urea Nitrogen 26 mg/dL (9-20); Calcium 8.8 mg/dL (8.4-10.2); Hemolysis Index 11
[2018-10-29] MEDS ORDERED: DILAUDID IV ONE (21:17)
[2018-10-29] MEDS ORDERED: DILAUDID ONE (21:21)
[2018-10-29 21:23] LABS: Alanine Aminotransferase 20 units/L (7-56)
[2018-10-29] MEDS ORDERED: TYLENOL PO PRN ×2 (22:22→22:30)
[2018-10-29] MEDS ORDERED: SODIUM CHLORIDE FLUSH SYRINGE 10 ML IV PRN ×2 (22:22→22:30)
[2018-10-29] MEDS ORDERED: ZOFRAN IV PRN (22:22)
[2018-10-29] MEDS ORDERED: PERCOCET 5/325 PO PRN (22:22)
[2018-10-29] MEDS ORDERED: DULCOLAX PR PRN (22:30)
[2018-10-29] MEDS ORDERED: REGLAN PO PRN (22:30)
[2018-10-29] MEDS ORDERED: NORMODYNE IV PRN (22:30)
[2018-10-29] MEDS ORDERED: MILK OF MAGNESIA PO PRN (22:30)
[2018-10-29] MEDS ORDERED: PHENERGAN PR PRN (22:30)
[2018-10-29] MEDS ORDERED: NITROSTAT SL PRN (22:53)
[2018-10-29] MEDS ORDERED: FLUTICASONE PROPIONATE 100 MCG IH PRN (22:53)
[2018-10-29 23:01] LABS: Bilirubin,Urine NEG (Negative); Blood,Urine NEG (Negative); Color,Urine Yellow (Yellow); Urobilinogen,Urine < 2.0 mg/dL (<2.0); WBC,Urine < 1.0 /HPF (0.0-6.0)
--- NOTE | 2018-10-29 23:01 | History and Physical Report ---
History of Present Illness Date of examination: 10/29/18 Date of admission: 10/29/18 22:22 Chief complaint: LT arm weakness History of present illness: Patient is a 58-year-old -[place] male with a history of CHF, DM2 and sick sinus syndrome status post pacemaker placement who presented to the ED on account of few hours history of left arm weakness. Patient stated that about 2 days ago, he started experiencing pain around his pacemaker placement which r adiated to his left arm. Today at about 12-12.30 PM, he started experiencing left arm numbness with weakness and inability to physical therapy aide. He also admitted to dizziness, dry cough, palpitation, diaphoresis, 3 pillow orthopnea and PND. He denies headaches, nausea, vomiting, fever, chills, leg swelling, syncope or loss of consciousness. No preceding history of trauma. No prior history of presenting complaint. He admits to medication compliance. Past History Past Medical History: COPD, diabetes, heart failure, hypertension, hyperlipidemia, renal failure, other (sick sinus syndrome s/p pacemaker placement, RT kidney cancer status post right nephrectomy, ROEL on CPAP at night, chronic back pain) Past Surgical History: Other (pacemaker placement in 2017, right nephrectomy in 2016) Social history: smoking (40 years history of cigarette smoking, currently smokes half pack per day. He denies alcohol or illicit drug use) Family history: other (parents and sisters have history of hypertension, diabetes and heart disease) Medications and Allergies Allergies Allergy/AdvReac Type Severity Reaction Status Date / Time No Known Allergies Allergy Unverified 08/06/18 18:35 Home Medications Medication Instructions Recorded Confirmed Last Taken Type Sacubitril/Valsartan [Entresto 24 1 tab PO BID 08/06/18 10/29/18 10/10/18 08:00 History - 26 mg] ALBUTEROL Inhaler(NF) [VENTOLIN 2 puff IH Q4H PRN #1 inha 08/08/18 10/29/18 10/10/18 08:00 Rx Inhaler(NF)] Aspirin EC 1 tab PO DAILY #30 08/08/18 10/29/18 10/10/18 08:00 Rx AtorvaSTATin [Lipitor] 40 mg PO QHS #30 tab 08/08/18 10/29/18 10/09/18 22:00 Rx Carvedilol [Coreg] 12.5 mg PO BID #60 tab 08/08/18 10/29/18 10/10/18 08:00 Rx Furosemide [Lasix TAB] 40 mg PO QDAY #30 tablet 08/08/18 10/29/18 10/10/18 08:00 Rx Spironolactone [Aldactone] 25 mg PO QDAY #30 tablet 08/08/18 10/29/18 10/10/18 08:00 Rx amLODIPine [Norvasc] 1 tab PO DAILY #30 08/08/18 10/29/18 10/10/18 08:00 Rx hydrALAZINE [Apresoline TAB] 1 tab PO BID #60 tab 08/08/18 10/29/18 10/10/18 08:00 Rx Fluticasone Propionate [Flovent 100 mcg IH BID PRN 10/11/18 10/29/18 10/10/18 08:00 History Diskus] Nitroglycerin [Nitrostat] 0.4 mg SL Q5M PRN 10/11/18 10/29/18 10/10/18 08:00 History Oxycodone HCl/Acetaminophen 1 each PO Q6HR PRN 10/11/18 10/29/18 10/10/18 08:00 History [Percocet 10/325 mg] Pantoprazole [Protonix] 40 mg PO QDAY #30 tablet 10/12/18 10/29/18 Unknown Rx Active Meds: Active Medications Acetaminophen (Tylenol) 650 mg PO Q4H PRN PRN Reason: Pain MILD(1-3)/Fever >100.5/GUZMAN Acetaminophen (Tylenol) 650 mg PO Q4H PRN PRN Reason: Pain, Mild (1-3) Albuterol/Ipratropium (Duoneb *Not For Prn Use*) 1 ampul IH Q6HRT CAMI Aspirin (Aspirin) 325 mg PO QDAY CAMI Atorvastatin Calcium (Lipitor) 40 mg PO QHS CAMI Bisacodyl (Dulcolax) 10 mg NM QDAY PRN PRN Reason: Constipation Docusate Sodium (Colace) 100 mg PO BID CAMI Labetalol HCl (Normodyne) 10 mg IV Q5MIN PRN PRN Reason: to maintain SBP < 180 Magnesium Hydroxide (Milk Of Magnesia) 30 ml PO Q4H PRN PRN Reason: Constipation Metoclopramide HCl (Reglan) 10 mg PO Q6H PRN PRN Reason: Nausea And Vomiting Miscellaneous Medication (Fluticasone Propionate [Flovent Diskus]) 100 mcg IH BID PRN PRN Reason: YINA Nitroglycerin (Nitrostat) 0.4 mg SL Q5M PRN PRN Reason: Chest pain Ondansetron HCl (Zofran) 4 mg IV Q8H PRN PRN Reason: Nausea And Vomiting Oxycodone/Acetaminophen (Percocet 5/325) 2 tab PO Q6H PRN PRN Reason: Pain, Moderate (4-6) Pantoprazole Sodium (Protonix) 40 mg PO QDAY CAMI Promethazine HCl (Phenergan) 25 mg NM Q6H PRN PRN Reason: Nausea And Vomiting Sodium Chloride (Sodium Chloride Flush Syringe 10 Ml) 10 ml IV BID CAMI Sodium Chloride (Sodium Chloride Flush Syringe 10 Ml) 10 ml IV PRN PRN PRN Reason: LINE FLUSH Sodium Chloride (Sodium Chloride Flush Syringe 10 Ml) 10 ml IV PRN PRN PRN Reason: LINE FLUSH Review of Systems All systems: negative (except as documented in the HPI, 14 point system reviewed were negative) Exam - Constitutional Vitals: Temp Pulse Resp BP Pulse Ox 97.9 F 89 20 170/67 98 10/29/18 19:38 10/29/18 21:59 10/29/18 21:21 10/29/18 21:59 10/29/18 20:00 General appearance: Present: no acute distress, obese - EENT Eyes: Present: PERRL, EOM intact ENT: hearing intact, clear oral mucosa - Neck Neck: Present: supple, normal ROM - Respiratory Respiratory effort: normal Respiratory: bilateral: CTA - Cardiovascular Rhythm: regular Heart Sounds: Present: S1 & S2 - Extremities Extremities: pulses symmetrical, No edema Peripheral Pulses: within normal limits - Abdominal General gastrointestinal: Present: soft, non-tender, normal bowel sounds, other (obese) Male genitourinary: Present: deferred - Integumentary Integumentary: Present: clear, warm, dry - Musculoskeletal Musculoskeletal: left sided weakness - Psychiatric Psychiatric: appropriate mood/affect, intact judgment & insight - Neurologic Neurologic: focal deficits (left-sided weakness) Results - Labs CBC & Chem 7: 10/29/18 19:47 10/29/18 19:47 Labs: Laboratory Last Values WBC 6.1 K/mm3 (4.5-11.0) 10/29/18 19:47 RBC 5.07 M/mm3 (3.65-5.03) H 10/29/18 19:47 Hgb 12.1 gm/dl (11.8-15.2) 10/29/18 19:47 Hct 36.5 % (35.5-45.6) 10/29/18 19:47 MCV 72 fl (84-94) L 10/29/18 19:47 MCH 24 pg (28-32) L 10/29/18 19:47 MCHC 33 % (32-34) 10/29/18 19:47 RDW 16.8 % (13.2-15.2) H 10/29/18 19:47 Plt Count 206 K/mm3 (140-440) 10/29/18 19:47 Lymph % (Auto) 29.7 % (13.4-35.0) 10/29/18 19:47 [place] % (Auto) 6.7 % (0.0-7.3) 10/29/18 19:47 Eos % (Auto) 4.6 % (0.0-4.3) H 10/29/18 19:47 Baso % (Auto) 0.7 % (0.0-1.8) 10/29/18 19:47 Lymph # 1.8 K/mm3 (1.2-5.4) 10/29/18 19:47 [place] # 0.4 K/mm3 (0.0-0.8) 10/29/18 19:47 Eos # 0.3 K/mm3 (0.0-0.4) 10/29/18 19:47 Baso # 0.0 K/mm3 (0.0-0.1) 10/29/18 19:47 Seg Neutrophils % 58.3 % (40.0-70.0) 10/29/18 19:47 Seg Neutrophils # 3.5 K/mm3 (1.8-7.7) 10/29/18 19:47 PT 13.1 Sec. (12.2-14.9) 10/29/18 19:47 INR 1.02 (0.87-1.13) 10/29/18 19:47 APTT 27.6 Sec. (24.2-36.6) 10/29/18 19:47 15.4 Sec. (15.1-19.6) 10/29/18 19:47 Sodium 138 mmol/L (137-145) 10/29/18 19:47 Potassium 4.1 mmol/L (3.6-5.0) 10/29/18 19:47 Chloride 101.8 mmol/L (98-107) 10/29/18 19:47 Carbon Dioxide 24 mmol/L (22-30) 10/29/18 19:47 16 mmol/L 10/29/18 19:47 BUN 26 mg/dL (9-20) H 10/29/18 19:47 1.8 mg/dL (0.8-1.5) H 10/29/18 19:47 Estimated GFR 47 ml/min 10/29/18 19:47 14 % 10/29/18 19:47 Glucose 246 mg/dL (75-100) H 10/29/18 19:47 Calcium 8.8 mg/dL (8.4-10.2) 10/29/18 19:47 < 0.20 mg/dL (0.1-1.2) 10/29/18 19:47 AST 21 units/L (5-40) 10/29/18 19:47 ALT 20 units/L (7-56) 10/29/18 19:47 93 units/L (35-129) 10/29/18 19:47 621 units/L (55-170) H 10/29/18 19:47 CK-MB (CK-2) 7.1 ng/mL (0.0-4.0) H 10/29/18 19:47 CK-MB (CK-2) Rel Index 1.1 (0-4) 10/29/18 19:47 0.028 ng/mL (0.00-0.029) 10/29/18 19:47 NT-Pro-B Natriuret Pep 314.6 pg/mL (0-900) 10/29/18 19:47 7.2 g/dL (6.3-8.2) 10/29/18 19:47 3.7 g/dL (3.9-5) L 10/29/18 19:47 1.1 % 10/29/18 19:47 Blood Type O POSITIVE 10/29/18 19:47 Antibody Screen Negative 10/29/18 19:47 - Imaging and Cardiology CT Scan - head: report reviewed Assessment and Plan Assessment and plan: Left-sided weakness likely secondary to acute stroke -Patient is out of the window for TPA -On stroke protocol -Head CT scan negative -MRI cannot be obtained because patient has pacemaker in place -Head CT scan can be repeated in 24-48 hrs. Limited Echocardiogram with bubble study (last echo was in 08/20) and carotid duplex pending -Neurology consulted Hypertensive crisis -Monitor blood pressure and treat per the stroke protocol Chronic systolic heart failure with EF of 30-35% -No acute exacerbation -Continue home Lasix, Coreg and aldactone on hold due to the acute stroke NIDDM2 with hyperglycemia -On SSI and Lantus Obstructive sleep apnea -Continue CPAP at night COPD -No acute exacerbation -Continue nebulizer breathing treatments Chronic kidney disease stage III -Creatinine level at baseline, we'll monitor Hyperlipidemia -Continue statin Sick sinus syndrome -Status post pacemaker placement History of right kidney cancer -Status post right nephrectomy Chronic back pain -Continue Percocet Tobacco abuse -Pt counseled on cessation DVT prophylaxis with SCD for now Time spent: 40 minutes
--- NOTE | 2018-10-29 23:05 | XRay Report ---
CHEST 1 VIEW, 10/29/2018 10:41 PM INDICATION: Chest pain. CHF. COMPARISON: Chest radiograph, 10/10/2018 FINDINGS: Support devices: Single lead cardiac pacing device is again noted Heart: The cardiac silhouette is upper limits of normal in size. Lungs/pleura: No focal airspace consolidation or significant pleural effusion is seen. Additional findings: No additional acute findings. IMPRESSION: 1. No evidence of acute cardiopulmonary process. Signer Name: Amina Figueredo MD Signed: 10/29/2018 11:01 PM Workstation Name: [id number]
[2018-10-29 23:21] LABS: Amphetamine Screen,Urine PRESUMPTIVE NEGATIVE; Benzodiazepines Screen,Urine PRESUMPTIVE NEGATIVE; Cannabinoid Screen,Urine PRESUMPTIVE NEGATIVE; Methadone Screen,Urine PRESUMPTIVE NEGATIVE; Opiate Screen,Urine PRESUMPTIVE NEGATIVE
[2018-10-29] MEDS ORDERED: D50W (25GM) Syringe IV PRN (23:22)
[2018-10-29 23:35] LABS: Cocaine Screen,Urine PRESUMPTIVE POSITIVE
[2018-10-30] MEDS: PERCOCET 5/325 PO PRN ×2 (01:22→06:54)
[2018-10-30] MEDS: DUONEB *Not for PRN Use IH SCH ×3 (03:24→13:11)
[2018-10-30] MEDS ORDERED: PULMICORT IH PRN (07:38)
[2018-10-30] MEDS ORDERED: PROVENTIL IH PRN (07:41)
[2018-10-30] MEDS: HumuLIN R SUB-Q SCH ×2 (08:13→13:22)
[2018-10-30 08:19] LABS: Calcium 8.8 mg/dL (8.4-10.2); Chol/HDL Ratio 3.31 %
--- NOTE | 2018-10-30 09:52 | Vascular Lab Report ---
BILATERAL CAROTID DOPPLER ULTRASOUND INDICATION : Stroke, left arm weakness for 3 days TECHNIQUE: Grayscale and color Doppler imaging performed through the neck. COMPARISON: None FINDINGS: Right: There is minimal partially calcified plaque in the carotid bulb. Peak systolic velocity in t he CCA is 75 cm/s with end-diastolic velocity of 21 cm/s. Peak systolic velocity in the proximal ICA is 83 cm/s with end-diastolic velocity of 31 cm/s. ICA to CCA ratio is less than 2. There is antegrad e flow in the ECA and the vertebral artery. Left: There is no significant atherosclerotic disease. Peak systolic velocity in the CCA is 109 cm/s with end-diastolic velocity of 22 cm/s. Peak systolic velocity in the proximal ICA is 90 cm/s with en d-diastolic velocity of 88 cm/s. ICA to CCA ratio is less than 2. There is antegrade flow in the ECA and the vertebral artery. IMPRESSION: No hemodynamically significant stenosis by NASCET criteria. Signer Name: Harjinder Perales Jr, MD Signed: 10/30/2018 9:48 AM Workstation Name: [id number]
[2018-10-30] MEDS ORDERED: NON-FORMULARY (Oxycodone Hcl/Acetaminophen [Percocet 10/325 Mg] 1 EACH) PO PRN (09:56)
[2018-10-30] MEDS ORDERED: PROAIR IH PRN (09:56)
[2018-10-30] MEDS ORDERED: LASIX PO SCH ×2 (10:00)
[2018-10-30] MEDS ORDERED: ALDACTONE PO SCH (10:00)
[2018-10-30] MEDS ORDERED: APRESOLINE PO SCH (10:00)
[2018-10-30] MEDS ORDERED: NORVASC PO SCH (10:00)
[2018-10-30] MEDS ORDERED: SODIUM CHLORIDE FLUSH SYRINGE 10 ML IV SCH (10:00)
[2018-10-30] MEDS ORDERED: COLACE PO SCH (10:00)
[2018-10-30] MEDS ORDERED: COREG PO SCH (10:00)
[2018-10-30] MEDS ORDERED: ASPIRIN PO SCH (10:00)
[2018-10-30] MEDS ORDERED: PROTONIX PO SCH (10:00)
[2018-10-30] MEDS ORDERED: ROXICODONE PO PRN (10:14)
[2018-10-30] MEDS ORDERED: PERCOCET 5/325 PO PRN (10:14)
[2018-10-30] MEDS ORDERED: ENTRESTO 24 - 26 MG PO SCH (12:00)
--- NOTE | 2018-10-30 12:55 | Discharge Summary ---
Providers - Providers Date of Admission: 10/29/18 22:22 Date of discharge: 10/30/18 Attending physician: ESME MANCILLA 10/29/18 22:22 Consult to Physician [CONS] Routine Comment: Consulting Provider: ANDRY SALOMON Physician Instructions: Reason For Exam: CVA 10/29/18 22:30 Consult to Case Management [CONS] Routine Services Needed at Discharge: Other Notified:: cm Additional Physician Instructions: DISCHARGE PLANNING Occupational Therapy Evaluate and Treat [CONS] Routine Comment: Reason For Exam: Neuro deficits Physical Therapy Evaluation and Treat [CONS] Routine Comment: Reason For Exam: Neuro deficits Hospitalization Condition: Critical Hospital course: Discharge diagnosis: Left Radial rediculopathy - Per neuro: On exam decreased tone of left brachioradialis and weakness of left finger extensors with some flexion contractures left ring and little finger. This fits primarily with left radial neuropathy, perhaps a pressure palsy though weakness of ADM left suggests other nerve roots, so could be a multifocal plexopathy or radiculoneuropathy from DM. consulted OT to give him a splint to help the finger contracture. Symptom should get better over 4 to 6 weeks but if not better, would need nerve conduction/EMG tests. -Head CT scan negative, CVA ruled out -MRI cannot be obtained because patient has pacemaker in place Hypertensive crisis -Monitored blood pressure and resumed home meds Chronic systolic heart failure with EF of 30-35% -No acute exacerbation -Continue home Lasix, Coreg and aldactone on hold due to the acute stroke NIDDM2 with hyperglycemia -On SSI and Lantus Obstructive sleep apnea -Continue CPAP at night COPD -No acute exacerbation -Continue nebulizer breathing treatments Chronic kidney disease stage III -Creatinine level at baseline, we'll monitor Hyperlipidemia -Continue statin Sick sinus syndrome -Status post pacemaker placement History of right kidney cancer -Status post right nephrectomy Chronic back pain -Continue tylenol Tobacco abuse -Pt counseled on cessation Cocaine abuse, counselled Disposition: -01 TO HOME OR SELFCARE Time spent for discharge: 34 minutes Core Measure Documentation - Palliative Care Palliative Care/ Comfort Measures: Not Applicable - Core Measures Any of the following diagnoses?: stroke - Stroke Discharge Requirements Statin for LDL = or >70 mg/dl on DC: Yes Anticoag for atrial fib/atrial flutter: Not Applicable Antithrombotic for ischemic stroke: Yes Exam - Constitutional Vitals: Temp Pulse Resp BP Pulse Ox 98.6 F 81 22 196/112 97 10/30/18 11:26 10/30/18 11:26 10/30/18 11:26 10/30/18 11:32 10/30/18 11:26 General appearance: Present: no acute distress, obese - EENT Eyes: Present: PERRL ENT: hearing intact, clear oral mucosa - Neck Neck: Present: supple, normal ROM - Respiratory Respiratory effort: normal Respiratory: bilateral: CTA - Cardiovascular Heart Sounds: Present: S1 & S2. Absent: rub, click - Extremities Extremities: pulses symmetrical, No edema Peripheral Pulses: within normal limits - Abdominal General gastrointestinal: Present: soft, non-tender, non-distended, normal bowel sounds - Integumentary Integumentary: Present: clear, warm, dry - Musculoskeletal Musculoskeletal: gait normal, strength equal bilaterally - Psychiatric Psychiatric: appropriate mood/affect, intact judgment & insight - Neurologic Neurologic: CNII-XII intact, moves all extremities Plan Activity: advance as tolerated Weight Bearing Status: Weight Bear as Tolerated Diet: low fat, low salt Additional Instructions: Splint for left hand Follow up with: CARMEN RADER [Other] - 7 Days Prescriptions: AtorvaSTATin [Lipitor] 40 mg PO QHS #30 tab Spironolactone [Aldactone] 25 mg PO QDAY #30 tablet hydrALAZINE [Apresoline TAB] 1 tab PO BID #90 tab Carvedilol [Coreg] 12.5 mg PO BID #60 tab Sacubitril/Valsartan [Entresto 24 - 26 mg] 1 tab PO BID #30 tablet Furosemide [Lasix TAB] 40 mg PO QDAY #30 tablet amLODIPine [Norvasc] 1 tab PO DAILY #30 tablet Pantoprazole [Protonix TAB] 40 mg PO QDAY #30 tablet
[2018-10-30] MEDS ORDERED: APRESOLINE IV PRN ×2 (12:56→15:09)
--- NOTE | 2018-10-30 14:40 | Consultation ---
History of Present Illness Consult date: 10/30/18 Requesting physician: ESME MANCILLA Reason for Consult: possible stroke, left arm weakness Chief complaint: left arm burning and weakness History of present illness: This 58 year old male on Tuesday 8 am noted on awakening burning pain at site of pacemaker and tingling to left wrist, still present today. Tuesday about noon noted weakness of left arm for gripping which is still present. No symptoms in left leg or face. Ran out of 81 mg aspirin and Lasix and amlodipine 2 days prior to Tuesday onset. PMH: Medical: DM, CHF Surgeries: right kidney removal (cancer) 2015, not needing chemo or RT pacemaker 2016 FH: CVA maternal uncle. DM siblings and parents. Hypertension siblings, parents and daughter. No epilepsy. SH: half ppd cigs, no ETOH, no cocaine for 6 months (nasal), never IVDA. 7th grade education, single, one daughter, 5 grandchildren. Disabled by DM and 3 ruptured discs in lower back. ROS: CPAP for 15 years. General Physical Exam: General appearance: well developed but moderately obese (per BMI) late 50's male in [facility], seen with female friend who calls him her "." HEENT: negative Neck: supple, no bruits. Heart: no murmur or extra sounds. Extremities: 2+ dorsalis pedis pulses, no edema. 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 Cranial Nerves: velásquez full, can't see fundi due to cataracts, PERRL but poor accommodation (hard to see due to small pupils), EOMs full, sensory intact, no facial weakness, gags are positive, palate rises symmetrically X 2, shrug is 5 X 2, tongue protrudes midline Cerebellar: finger to nose and heel to moy are intact X 2. Sensory: decreased vibrations left foot. Pinprick decreased left dorsal forearm. Special Tests: Tinel's negative at wrists and elbows including Guyon's canals and negative over radial nerve above elbow and just below elbow and at wrist on the left. Motor Exam Upper Extremities: no drift or pronation, Qing done with accessory motion left. 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 Deltoids and biceps are 5, triceps are 4+ X 2, brachioradialis normal bulk and tone right and flat on the left, wrist extension 5 right and 4- left with giveway, wrist flexion 5 right and 4+ left with pain, 1st DI 5 right and 0 left, other finger extension 5 right and 1+ left with finger flexion posture left ring and little finger, finger flexion 5 right and 4 to 4_ left with pain, ADM 5 right and trace left. Motor Exam Lower Extremities: no leg lag, leg lift 4+ left (old from lumbar disc problems he says), IPs are 5, quads are 5, anterior tibials 5 but decreased dorsiflexion ROM left, gastrocs are 5. Qing are normal. Tone is normal. Reflexes: palmomental, jaw jerk and snout are negative. Triceps, biceps and brachioradialis are trace. Aracely's is negative X 2. Knee jerks and ankle jerks are 0 even with reinforcement and without clonus. Toes are downgoing to Babinski testing. Past History Past Medical History: COPD, diabetes, heart failure, hypertension, h yperlipidemia, renal failure, other (sick sinus syndrome s/p pacemaker placement, RT kidney cancer status post right nephrectomy, ROEL on CPAP at night, chronic back pain) Past Surgical History: Other (pacemaker placement in 2017, right nephrectomy in 2016) Social history: smoking (40 years history of cigarette smoking, currently smokes half pack per day. He denies alcohol or illicit drug use) Family history: other (parents and sisters have history of hypertension, diabetes and heart disease) Medications and Allergies Allergies Allergy/AdvReac Type Severity Reaction Status Date / Time No Known Allergies Allergy Unverified 08/06/18 18:35 Home Medications Medication Instructions Recorded Confirmed Last Taken Type ALBUTEROL Inhaler(NF) [VENTOLIN 2 puff IH Q4H PRN #1 inha 08/08/18 10/29/18 10/10/18 08:00 Rx Inhaler(NF)] Aspirin EC 1 tab PO DAILY #30 08/08/18 10/29/18 10/10/18 08:00 Rx Fluticasone Propionate [Flovent 100 mcg IH BID PRN 10/11/18 10/29/18 10/10/18 08:00 History Diskus] Nitroglycerin [Nitrostat] 0.4 mg SL Q5M PRN 10/11/18 10/29/18 10/10/18 08:00 History Acetaminophen [Acetaminophen TAB] 650 mg PO Q4H PRN tablet 10/30/18 Unknown Rx AtorvaSTATin [Lipitor] 40 mg PO QHS #30 tab 10/30/18 Unknown Rx Carvedilol [Coreg] 12.5 mg PO BID #60 tab 10/30/18 Unknown Rx Furosemide [Lasix TAB] 40 mg PO QDAY #30 tablet 10/30/18 Unknown Rx Insulin Glargine [Lantus VIAL] 15 units SUB-Q QHS units 10/30/18 Unknown Rx Pantoprazole [Protonix TAB] 40 mg PO QDAY #30 tablet 10/30/18 Unknown Rx Sacubitril/Valsartan [Entresto 24 1 tab PO BID #30 tablet 10/30/18 Unknown Rx - 26 mg] Spironolactone [Aldactone] 25 mg PO QDAY #30 tablet 10/30/18 Unknown Rx amLODIPine [Norvasc] 1 tab PO DAILY #30 tablet 10/30/18 Unknown Rx hydrALAZINE [Apresoline TAB] 1 tab PO BID #90 tab 10/30/18 Unknown Rx Active Meds: Active Medications Acetaminophen (Tylenol) 650 mg PO Q4H PRN PRN Reason: Pain MILD(1-3)/Fever >100.5/GUZMAN Albuterol (Proventil) 2.5 mg IH Q4HRT PRN PRN Reason: Shortness Of Breath Albuterol/Ipratropium (Duoneb *Not For Prn Use*) 1 ampul IH Q6HRT [facility] Last Admin: 10/30/18 13:11 Dose: 1 ampul Documented by: Amlodipine Besylate (Norvasc) 10 mg PO DAILY [facility] Last Admin: 10/30/18 11:32 Dose: 10 mg Documented by: Aspirin (Aspirin) 325 mg PO QDAY [facility] Last Admin: 10/30/18 11:32 Dose: 325 mg Documented by: Atorvastatin Calcium (Lipitor) 40 mg PO QHS [facility] Bisacodyl (Dulcolax) 10 mg W[place] QDAY PRN PRN Reason: Constipation Budesonide (Pulmicort) 0.5 mg IH Q12HRT PRN PRN Reason: DIFFICULT BREATHING Carvedilol (Coreg) 12.5 mg PO BID [facility] Last Admin: 10/30/18 11:32 Dose: 12.5 mg Documented by: Dextrose (D50w (25gm) Syringe) 50 ml IV PRN PRN PRN Reason: Hypoglycemia Docusate Sodium (Colace) 100 mg PO BID [facility] Last Admin: 10/30/18 11:31 Dose: 100 mg Documented by: Furosemide (Lasix) 40 mg PO QDAY [facility] Last Admin: 10/30/18 11:31 Dose: 40 mg Documented by: Hydralazine HCl (Apresoline) 100 mg PO BID [facility] Last Admin: 10/30/18 11:32 Dose: 100 mg Documented by: Hydralazine HCl (Apresoline) 5 mg IV Q30MIN PRN PRN Reason: Hypertension Insulin Glargine (Lantus) 15 units SUB-Q QHS [facility] Insulin Human Regular (Humulin R) 0 units SUB-Q ACHS [facility]; Protocol Last Admin: 10/30/18 13:22 Dose: 3 units Documented by: Labetalol HCl (Normodyne) 10 mg IV Q5MIN PRN PRN Reason: to maintain SBP < 180 Magnesium Hydroxide (Milk Of Magnesia) 30 ml PO Q4H PRN PRN Reason: Constipation Metoclopramide HCl (Reglan) 10 mg PO Q6H PRN PRN Reason: Nausea And Vomiting Nitroglycerin (Nitrostat) 0.4 mg SL Q5M PRN PRN Reason: Chest pain Ondansetron HCl (Zofran) 4 mg IV Q8H PRN PRN Reason: Nausea And Vomiting Oxycodone HCl (Roxicodone) 5 mg PO Q6H PRN PRN Reason: Pain, Moderate (4-6) Oxycodone/Acetaminophen (Percocet 5/325) 1 tab PO Q6H PRN PRN Reason: Pain, Moderate (4-6) Last Admin: 10/30/18 11:39 Dose: 1 tab Documented by: Pantoprazole Sodium (Protonix) 40 mg PO QDAY [facility] Last Admin: 10/30/18 11:32 Dose: 40 mg Documented by: Promethazine HCl (Phenergan) 25 mg WV Q6H PRN PRN Reason: Nausea And Vomiting Sodium Chloride (Sodium Chloride Flush Syringe 10 Ml) 10 ml IV BID [facility] Sodium Chloride (Sodium Chloride Flush Syringe 10 Ml) 10 ml IV PRN PRN PRN Reason: LINE FLUSH Sodium Chloride (Sodium Chloride Flush Syringe 10 Ml) 10 ml IV PRN PRN PRN Reason: LINE FLUSH Spironolactone (Aldactone) 25 mg PO QDAY [facility] Last Admin: 10/30/18 11:31 Dose: 25 mg Documented by: Physical Examination - Vital Signs Vital Signs: Vital Signs Pulse Resp 72 21 10/29/18 18:06 10/29/18 18:06 Results - Laboratory Findings CBC and BMP: 10/29/18 19:47 10/30/18 07:09 Abnormal Lab Findings: Abnormal Labs 10/29/18 10/29/18 10/29/18 19:47 19:47 19:47 RBC 5.07 H MCV 72 L MCH 24 L RDW 16.8 H Eos % (Auto) 4.6 H Sodium BUN 26 H Creatinine 1.8 H Glucose 246 H POC Glucose Hemoglobin A1c Total Creatine Kinase 621 H CK-MB (CK-2) 7.1 H Albumin 3.7 L Triglycerides LDL Cholesterol Direct HDL Cholesterol 10/30/18 10/30/18 10/30/18 07:09 07:09 07:58 RBC MCV MCH RDW Eos % (Auto) Sodium 135 L BUN 23 H Creatinine 1.8 H Glucose 156 H POC Glucose 142 H Hemoglobin A1c 6.9 H Total Creatine Kinase CK-MB (CK-2) Albumin Triglycerides 290 H LDL Cholesterol Direct 41 L HDL Cholesterol 29 L 10/30/18 11:27 RBC MCV MCH RDW Eos % (Auto) Sodium BUN Creatinine Glucose POC Glucose 205 H Hemoglobin A1c Total Creatine Kinase CK-MB (CK-2) Albumin Triglycerides LDL Cholesterol Direct HDL Cholesterol Assessment and Plan Impression: 1. Left radial nerve palsy 2. Possible brachial plexopathy or multifocal radiculoneuropathy Plan: 1. On exam decreased tone of left brachioradialis and weakness of left finger extensors with some flexion contractures left ring and little finger. This fits primarily with left radial neuropathy, perhaps a pressure palsy though weakness of ADM left suggests other nerve roots, so could be a multifocal plexopathy or radiculoneuropathy from DM. Relative sparing of left triceps usually suggests radial nerve injury distal in left upper arm but as above, may be multifocal process. 2. I called OT and asked them to come up and give him a splint to help the finger contractures. I told him this should get better over 4 to 6 weeks but if not better, would need nerve conduction/EMG tests. 3. Cancelled head CT since not needed. 4. Discussed with Dr. Mancilla. 5. Though not stroke, told him greatest risk of stroke is smoking and importance of not running out of medication. Told him to avoid pressure on axilla or elsewhere in left arm. 6. Can be discharged today and even get the splint as outpatient if not able to get today. 50 min spent including extensive motor exam. Thank you for an interesting consultation on this late 50's male. Signing off. Call for any questions.
[2018-10-30 17:21] VITALS: BP 167/85
[2018-10-30] MEDS ORDERED: LANTUS SUB-Q SCH (22:00)
== END 2018-10-30 20:44 | disposition home or self-care (01) | DRG 74 ==
LOC: ED 18:59 → 3A 22:22
PROVIDERS: ADMIT Internal Medicine; ATTEND Internal Medicine
PROC: 5A09357 Assistance with Respiratory Ventilation, Less than 24 Consecutive Hours, Continuous Positive Airway Pressure (ICD-10-PCS; principal; 2018-10-29)
PROC: 5A09357 Assistance with Respiratory Ventilation, Less than 24 Consecutive Hours, Continuous Positive Airway Pressure (ICD-10-PCS; 2018-10-30)
DX: G56.32 Lesion of radial nerve, left upper limb (principal); I50.22 Chronic systolic (congestive) heart failure; Z68.41 Body mass index [BMI] 40.0-44.9, adult; I16.9 Hypertensive crisis, unspecified; I13.0 Hypertensive heart and chronic kidney disease with heart failure and stage 1 through stage 4 chronic kidney disease, or unspecified chronic kidney disease; E11.42 Type 2 diabetes mellitus with diabetic polyneuropathy; G89.29 Other chronic pain; F17.210 Nicotine dependence, cigarettes, uncomplicated; E11.65 Type 2 diabetes mellitus with hyperglycemia; N18.3 Chronic kidney disease, stage 3 (moderate); E66.01 Morbid (severe) obesity due to excess calories; J44.9 Chronic obstructive pulmonary disease, unspecified; E11.22 Type 2 diabetes mellitus with diabetic chronic kidney disease; I49.5 Sick sinus syndrome; Z95.0 Presence of cardiac pacemaker; Z90.5 Acquired absence of kidney; Z71.3 Dietary counseling and surveillance; Z85.528 Personal history of other malignant neoplasm of kidney; Z79.51 Long term (current) use of inhaled steroids; Z79.82 Long term (current) use of aspirin; Z71.6 Tobacco abuse counseling; I25.2 Old myocardial infarction; Z79.84 Long term (current) use of oral hypoglycemic drugs
CPT/HCPCS: 36415; 70450; 71045; 80048; 80053; 80061; 80307; 81001; 82550; 82553; 82962; 83036; 83880; 84484; 85025; 85610; 85670; 85730; 86850; 86900; 86901; 87116; 93005; 93010; 93308; 93321; 93325; 93880; 94640; 94660; 96374; 96375; 99406; G0378; J0360; J1170; J1815; J2405

== ENCOUNTER 2018-12-16 15:02 | Inpatient (IN) | payer MEDICARE ==
[2018-12-16] MEDS ORDERED: ASPIRIN PO ONE (15:32)
--- NOTE | 2018-12-16 15:33 | Event Note ---
ED Screening Note Date of service: 12/16/18 Time: 15:30 ED Screening Note: This is a 58 y.o. M. that presents the ER with substernal chest pain, wheezing, and SOB. Patient reports pain as stabbing intensity that is constant. PMH arthritis, CHF, COPD, DM, [place], HTN, and sleep apnea, pacemaker This initial assessment/diagnostic orders/clinical plan/treatment(s) is/are subject to change based on patients health status, clinical progression and re- assessment by fellow clinical providers in the ED. Further treatment and workup at subsequent clinical providers discretion. Patient/guardian urged not to elope from the ED as their condition may be serious if not clinically assessed and managed. Initial orders include: Labs, EKG, & CXR
--- NOTE | 2018-12-16 15:58 | XRay Report ---
CHEST 1 VIEW INDICATION: MAIN: Chest Pain PT SD CP X1 DAY. PT SD HX OF HBP..JTS. COMPARISON: 10/29/2018. FINDINGS: Support devices: Cardiac lead is unchanged. Heart: Normal. Lungs/Pleura: No acute pulmonary or pleural findings. IMPRESSION: 1. No acute findings. Signer Name: Afshin Escalante MD Signed: 12/16/2018 3:54 PM Workstation Name: [id number]
[2018-12-16 16:06] LABS: Basophils % (Auto) 0.5 % (0.0-1.8); Eosinophils # (Auto) 0.2 K/mm3 (0.0-0.4); Eosinophils % (Auto) 2.5 % (0.0-4.3); Hematocrit 39.7 % (35.5-45.6); Hemoglobin 12.6 gm/dl (11.8-15.2); Lymphocytes % (Auto) 29.8 % (13.4-35.0); Mean Corpuscular HGB Conc 32 % (32-34); Mean Corpuscular Volume 71 fl (84-94); Monocytes # (Auto) 0.6 K/mm3 (0.0-0.8); Monocytes % (Auto) 8.3 % (0.0-7.3); Platelet Count 218 K/mm3 (140-440); Red Blood Count 5.57 M/mm3 (3.65-5.03); Red Cell Distribution Width 16.5 % (13.2-15.2)
[2018-12-16 16:19] LABS: Calcium 9.1 mg/dL (8.4-10.2)
[2018-12-16 17:16] LABS: Chol/HDL Ratio 3.36 %
--- NOTE | 2018-12-16 17:31 | Emergency Department Report ---
ED Chest Pain HPI - General Chief Complaint: Chest Pain Stated Complaint: CHEST PAIN/PACE MAKER Time Seen by Provider: 12/16/18 15:30 Source: patient Mode of arrival: Ambulatory Limitations: No Limitations - History of Present Illness Initial Comments: This is a 58-year-old male insulin-dependent diabetic history of obstructive sleep apnea/COPD, hyperlipidemia sick sinus syndrome and status post pacemaker with renal insufficiency. He apparently is also a cocaine abuser for the prior records. He is known to have a nonischemic cardiomyopathy. However his last heart cath was more than 5 years ago secondary to his chronic renal disease. He does have not infrequent presentations for chest pain. He presents again today with substernal chest pain like a person "standing on his chest" for the last 2 days. He has had some shortness of breath. He denies syncope. At the same time he states that he is hungry and would like to be admitted. Per her last discharge summary. Hospitalization Condition: Critical Pertinent studies: Head CT CXT carotid dopler 2d echo Hospital course: Patient is a 58-year-old -[place] male with a history of CHF, DM2 and sick sinus syndrome status post pacemaker placement who presented to the ED on account of few hours history of left arm weakness. She was admitted with stroke protocol fr further evaluation and management. Discharge diagnosis and ma: Left Radial rediculopathy - ruled out acute CVA - Per neuro: On exam decreased tone of left brachioradialis and weakness of left finger extensors with some flexion contractures left ring and little finger. This fits primarily with left radial neuropathy, perhaps a pressure palsy though weakness of ADM left suggests other nerve roots, so could be a multifocal plexopathy or radiculoneuropathy from DM. consulted OT to give him a splint to help the finger contracture. Symptom should get better over 4 to 6 weeks but if not better, would need nerve conduction/EMG tests. -Head CT scan negative, CVA ruled out -MRI cannot be obtained because patient has pacemaker in place Hypertensive crisis, resolved -Monitored blood pressure and resumed home meds Chronic systolic heart failure with EF of 30-35% -No acute exacerbation NIDDM2 with hyperglycemia -Placed On SSI and Lantus Obstructive sleep apnea -Continue CPAP at night COPD -No acute exacerbation -Continue nebulizer breathing treatments Chronic kidney disease stage III -Creatinine level at baseline, Hyperlipidemia -Continue statin Sick sinus syndrome -Status post pacemaker placement History of right kidney cancer -Status post right nephrectomy Chronic back pain -Continue tylenol Tobacco abuse -Pt counseled on cessation Cocaine abuse, counselled Disposition: DC-01 TO HOME OR SELFCARE Time spent for discharge: [address] Hussein's Note: The patient is a 58-year-old man with multiple medical problems. He has severe obesity, obstructive sleep apnea on home CPAP, and chronic tobacco abuse. He also has a long history of a dilated, nonischemic cardiomyopathy. 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 [facility]. Cardiac c atheterization several years ago revealed no significant coronary artery disease, and patient was subsequently implanted with a defibrillator in 2005. He is unable to articulate his left ventricular ejection fraction percentage. The patient presents to the hospital at this time complaining of shortness of breath, chest tightness, cough. He denies noncompliance with his medications, but admits to recent consumption of high sodium Russian food and also noncompliance with his home CPAP therapy. His ECG is normal sinus rhythm, left axis deviation, left ventricular hypertrophy, poor R-wave progression but no acute ischemic changes. X-rays not available for review, but the report states no evidence of significant interstitial edema or heart failure exacerbation. MD Complaint: chest pain Pain Location: substernal, left chest Pain Radiation: none Quality: heaviness Consistency: intermittent Improves With: nothing Worsens With: nothing re: dyspnea Other Symptoms: denies: cough, fever, syncope Treatments Prior to Arrival: none Aspirin use within the Past 7 Days: (1) Yes - Related Data On Oral Contraceptives: No Home Medications Medication Instructions Recorded Confirmed Last Taken Fluticasone Propionate [Flovent 100 mcg IH BID PRN 10/11/18 10/29/18 10/10/18 08:00 Diskus] Nitroglycerin [Nitrostat] 0.4 mg SL Q5M PRN 10/11/18 10/29/18 10/10/18 08:00 Previous Rx's Medication Instructions Recorded Last Taken Type ALBUTEROL Inhaler(NF) [VENTOLIN 2 puff IH Q4H PRN #1 inha 08/08/18 10/10/18 08:00 Rx Inhaler(NF)] Aspirin EC [Halfprin EC] 1 tab PO DAILY #30 08/08/18 10/10/18 08:00 Rx Acetaminophen [Acetaminophen TAB] 650 mg PO Q4H PRN tablet 10/30/18 Unknown Rx AtorvaSTATin [Lipitor] 40 mg PO QHS #30 tab 10/30/18 Unknown Rx Carvedilol [Coreg] 12.5 mg PO BID #60 tab 10/30/18 Unknown Rx Furosemide [Lasix TAB] 40 mg PO QDAY #30 tablet 10/30/18 Unknown Rx Insulin Glargine [Lantus VIAL] 15 units SUB-Q QHS units 10/30/18 Unknown Rx Pantoprazole [Protonix TAB] 40 mg PO QDAY #30 tablet 10/30/18 Unknown Rx Sacubitril/Valsartan [Entresto 24 1 tab PO BID #30 tablet 10/30/18 Unknown Rx - 26 mg] Spironolactone [Aldactone] 25 mg PO QDAY #30 tablet 10/30/18 Unknown Rx amLODIPine [Norvasc] 1 tab PO DAILY #30 tablet 10/30/18 Unknown Rx hydrALAZINE [Apresoline TAB] 1 tab PO BID #90 tab 10/30/18 Unknown Rx Allergies Allergy/AdvReac Type Severity Reaction Status Date / Time No Known Allergies Allergy Verified 12/16/18 15:32 Heart Score - HEART Score History: Moderately suspicious EKG: Normal Age: 45-65 Risk factors: > 3 risk factors or hx of atherosclerotic disease Troponin: 1-3x normal limit HEART Score: 5 - Critical Actions Critical Actions: 4-6 pts:12-16.6% risk of adverse cardiac event. Should be admitted ED Review of Systems ROS: Stated complaint: CHEST PAIN/PACE MAKER Other details as noted in HPI Constitutional: denies: chills, fever Eyes: denies: eye pain, eye discharge, vision change ENT: denies: ear pain, throat pain Respiratory: shortness of breath. denies: cough, wheezing Cardiovascular: chest pain. denies: palpitations Endocrine: no symptoms reported Gastrointestinal: denies: abdominal pain, nausea, diarrhea Genitourinary: denies: urgency, dysuria Musculoskeletal: denies: back pain, joint swelling, arthralgia Skin: denies: rash, lesions Neurological: denies: headache, weakness, paresthesias Psychiatric: denies: anxiety, depression Hematological/Lymphatic: denies: easy bleeding, easy bruising ED Past Medical Hx - Past Medical History Previous Medical History?: Yes Hx Hypertension: Yes Hx Heart Attack/AMI: Yes Hx Congestive Heart Failure: Yes Hx Diabetes: Yes Hx Renal Disease: Yes Hx Arthritis: Yes Hx Asthma: No Hx COPD: Yes Hx HIV: No Additional medical history: Sleep apnea and uses CPAP machine throught night and day as needed. 3 ruptured disc in back - Surgical History Past Surgical History?: Yes Hx Open Heart Surgery: Yes Hx Pacemaker: Yes Hx Internal Defibrillator: Yes Additional Surgical History: pacemaker - Social History Smoking Status: Current Every Day Smoker Substance Use Type: Marijuana, Prescribed - Medications Home Medications: Home Medications Medication Instructions Recorded Confirmed Last Taken Type ALBUTEROL Inhaler(NF) [VENTOLIN 2 puff IH Q4H PRN #1 inha 08/08/18 10/29/18 10/10/18 08:00 Rx Inhaler(NF)] Aspirin EC [Halfprin EC] 1 tab PO DAILY #30 08/08/18 10/29/18 10/10/18 08:00 Rx Fluticasone Propionate [Flovent 100 mcg IH BID PRN 10/11/18 10/29/18 10/10/18 08:00 History Diskus] Nitroglycerin [Nitrostat] 0.4 mg SL Q5M PRN 10/11/18 10/29/18 10/10/18 08:00 History Acetaminophen [Acetaminophen TAB] 650 mg PO Q4H PRN tablet 10/30/18 Unknown Rx AtorvaSTATin [Lipitor] 40 mg PO QHS #30 tab 10/30/18 Unknown Rx Carvedilol [Coreg] 12.5 mg PO BID #60 tab 10/30/18 Unknown Rx Furosemide [Lasix TAB] 40 mg PO QDAY #30 tablet 10/30/18 Unknown Rx Insulin Glargine [Lantus VIAL] 15 units SUB-Q QHS units 10/30/18 Unknown Rx Pantoprazole [Protonix TAB] 40 mg PO QDAY #30 tablet 10/30/18 Unknown Rx Sacubitril/Valsartan [Entresto 24 1 tab PO BID #30 tablet 10/30/18 Unknown Rx - 26 mg] Spironolactone [Aldactone] 25 mg PO QDAY #30 tablet 10/30/18 Unknown Rx amLODIPine [Norvasc] 1 tab PO DAILY #30 tablet 10/30/18 Unknown Rx hydrALAZINE [Apresoline TAB] 1 tab PO BID #90 tab 10/30/18 Unknown Rx ED Physical Exam - General Limitations: No Limitations General appearance: alert, in no apparent distress, obese - Head Head exam: Present: atraumatic, normocephalic - Eye Eye exam: Present: normal appearance. Absent: scleral icterus - ENT ENT exam: Present: mucous membranes moist - Neck Neck exam: Present: normal inspection - Respiratory Respiratory exam: Present: normal lung sounds bilaterally. Absent: respiratory distress - Cardiovascular Cardiovascular Exam: Present: regular rate, normal rhythm. Absent: systolic murmur, diastolic murmur, rubs, gallop - GI/Abdominal GI/Abdominal exam: Present: soft, normal bowel sounds. Absent: distended, tenderness, guarding, rebound - Rectal Rectal exam: Present: deferred - Extremities Exam Extremities exam: Present: normal inspection - Back Exam Back exam: Present: normal inspection - Neurological Exam Neurological exam: Present: alert, oriented X3, CN II-XII intact, motor sensory deficit (patient has a radial wrist drop left) - Psychiatric Psychiatric exam: Present: normal affect, normal mood - Skin Skin exam: Present: warm, dry, intact, normal color. Absent: rash ED Course Vital Signs 12/16/18 12/16/18 15:20 17:40 Temperature 98.3 F 97.7 F Pulse Rate 103 H 88 Respiratory 24 20 Rate Blood Pressure 167/98 Blood Pressure 186/87 [Left] O2 Sat by Pulse 97 98 Oximetry - Reevaluation(s) Reevaluation #1: Nitro paste, aspirin, labetalol, I expanded his work-up. Discussed with Dr. Me hui. Patient be admitted to telemetry for further care blood pressure control and evaluation of his chest pain. 12/16/18 18:03 RADHA score - Radha Score Age > 65: (0) No Aspirin use within the Past 7 Days: (1) Yes 3 or more CAD Risk Factors: (1) Yes 2 or more Angina events in past 24 hrs: (1) Yes Known CAD with more than 50% Stenosis: (0) No Elevated Cardiac Markers: (1) Yes ST Deviation Greater than 0.5mm: (0) No RADHA Score: 4 ED Medical Decision Making - Lab Data Result diagrams: 12/16/18 15:39 12/16/18 15:39 Laboratory Results - last 24 hr 12/16/18 12/16/18 15:39 15:39 WBC 6.7 RBC 5.57 H Hgb 12.6 Hct 39.7 MCV 71 L MCH 23 L MCHC 32 RDW 16.5 H Plt Count 218 Lymph % (Auto) 29.8 [place] % (Auto) 8.3 H Eos % (Auto) 2.5 Baso % (Auto) 0.5 Lymph # 2.0 [place] # 0.6 Eos # 0.2 Baso # 0.0 Seg Neutrophils % 58.9 Seg Neutrophils # 4.0 Sodium 139 Potassium 4.3 Chloride 103.8 Carbon Dioxide 20 L Anion Gap 20 BUN 22 H Creatinine 2.1 H Estimated GFR 39 BUN/Creatinine Ratio 10 Glucose 139 H Calcium 9.1 Troponin T 0.055 H Triglycerides 115 Cholesterol 128 LDL Cholesterol Direct 86 HDL Cholesterol 38 L Cholesterol/HDL Ratio 3.36 - EKG Data -: EKG Interpreted by [place] EKG shows normal: sinus rhythm, axis (left axis/LAFB) Rate: normal - EKG Data Interpretation: no acute changes, LVH - Radiology Data Radiology results: report reviewed (no acute findings) Critical care attestation.: If time is entered above; I have spent that time in minutes in the direct care of this critically ill patient, excluding procedure time. ED Disposition Clinical Impression: Uncontrolled hypertension, Chronic systolic heart failure, Neuropathy of left radial nerve Chest pain Qualifiers: Chest pain type: unspecified Qualified Code(s): R07.9 - Chest pain, unspecified Disposition: OP ADMIT IP TO THIS HOSP Is pt being admited?: Yes Does the pt Need Aspirin: Yes Condition: Stable Instructions: Chest Pain (ED), Hypertension (ED) Time of Disposition: 18:06
[2018-12-16] MEDS ORDERED: NITRO-BID 2% TP ONE (17:45)
[2018-12-16] MEDS ORDERED: NORMODYNE IV ONE (17:45)
[2018-12-16] MEDS ORDERED: NORCO 5/325 PO ONE (17:45)
[2018-12-16 19:09] LABS: INR 1.1 (0.87-1.13)
[2018-12-16 19:10] LABS: Partial Thromboplastin Time 29.6 Sec. (24.2-36.6)
[2018-12-16 19:17] LABS: Creatine Kinase MB 7.6 ng/mL (0.0-4.0)
[2018-12-16] MEDS ORDERED: PROAIR IH PRN (20:26)
[2018-12-16] MEDS ORDERED: TYLENOL PO PRN ×2 (20:26→20:28)
[2018-12-16] MEDS ORDERED: NITROSTAT SL PRN (20:26)
[2018-12-16] MEDS ORDERED: FLUTICASONE PROPIONATE 100 MCG IH PRN (20:26)
[2018-12-16] MEDS ORDERED: SODIUM CHLORIDE FLUSH SYRINGE 10 ML IV PRN (20:28)
[2018-12-16] MEDS ORDERED: ZOFRAN IV PRN (20:28)
[2018-12-16] MEDS ORDERED: DILAUDID IV PRN (20:28)
[2018-12-16] MEDS ORDERED: D50W (25GM) Syringe IV PRN (20:28)
[2018-12-16] MEDS ORDERED: HALFPRIN EC PO SCH (21:00)
[2018-12-16] MEDS ORDERED: PROVENTIL IH PRN (21:04)
[2018-12-16] MEDS ORDERED: PULMICORT IH PRN (22:13)
[2018-12-16] MEDS: APRESOLINE PO SCH (22:33)
[2018-12-16] MEDS: K-DUR PO SCH (22:33)
[2018-12-16] MEDS: ALDACTONE PO SCH (22:34)
[2018-12-16] MEDS: PERCOCET 5/325 PO PRN (22:34)
[2018-12-16] MEDS: COREG PO SCH (22:34)
[2018-12-16] MEDS: ENTRESTO 24 - 26 MG PO SCH (22:34)
[2018-12-16] MEDS: PROTONIX PO SCH (22:34)
[2018-12-16] MEDS: LANTUS SUB-Q SCH (22:35)
[2018-12-16] MEDS: SODIUM CHLORIDE FLUSH SYRINGE 10 ML IV SCH (22:38)
[2018-12-16] MEDS: HumaLOG SUB-Q SCH (22:39)
[2018-12-16] MEDS: NORVASC PO SCH (22:41)
[2018-12-17] MEDS: LASIX IV SCH ×2 (05:10→17:15)
[2018-12-17 05:25] LABS: Albumin 3.7 g/dL (3.9-5); Calcium 8.8 mg/dL (8.4-10.2)
[2018-12-17] MEDS: PERCOCET 5/325 PO PRN ×3 (06:21→22:52)
[2018-12-17 06:46] LABS: Bilirubin,Urine NEG (Negative); Blood,Urine SM (Negative); Color,Urine Straw (Yellow); Protein,Urine <15 mg/dL mg/dL (Negative); Urobilinogen,Urine < 2.0 mg/dL (<2.0); WBC,Urine < 1.0 /HPF (0.0-6.0)
[2018-12-17 07:00] LABS: Amphetamine Screen,Urine PRESUMPTIVE NEGATIVE; Benzodiazepines Screen,Urine PRESUMPTIVE NEGATIVE; Cannabinoid Screen,Urine PRESUMPTIVE NEGATIVE; Methadone Screen,Urine PRESUMPTIVE NEGATIVE; Opiate Screen,Urine PRESUMPTIVE NEGATIVE
--- NOTE | 2018-12-17 07:07 | History and Physical Report ---
History of Present Illness Date of examination: 12/16/18 Date of admission: 12/16/18 18:06 Chief complaint: Increasing SOB for 2 days History of present illness: 58-year-old male CMP ,insulin-dependent diabetes ,obstructive sleep apnea/COPD, hyperlipidemia sick sinus syndrome and status post pacemaker with renal insufficiency comes in for increasing SOB and Orthopnea.Also complains of L Hand weakness. Patient had w/u for l hand weakness last admission. -------- Per her last discharge summary. Hospital course: Patient is a 58-year-old -[place] male with a history of CHF, DM2 and sick sinus syndrome status post pacemaker placement who presented to the ED on account of few hours history of left arm weakness. She was admitted with stroke protocol fr further evaluation and management. Discharge diagnosis and ma: Left Radial rediculopathy - ruled out acute CVA - Per neuro: On exam decreased tone of left brachioradialis and weakness of left finger extensors with some flexion contractures left ring and little finger. This fits primarily with left radial neuropathy, perhaps a pressure palsy though weakness of ADM left suggests other nerve roots, so could be a multifocal plexopathy or radiculoneuropathy from DM. consulted OT to give him a splint to help the finger contracture. Symptom should get better over 4 to 6 weeks but if not better, would need nerve conduction/EMG tests. -Head CT scan negative, CVA ruled out -MRI cannot be obtained because patient has pacemaker in place Hypertensive crisis, resolved -Monitored blood pressure and resumed home meds Chronic systolic heart failure with EF of 30-35% -No acute exacerbation NIDDM2 with hyperglycemia -Placed On SSI and Lantus Obstructive sleep apnea -Continue CPAP at night COPD -No acute exacerbation -Continue nebulizer breathing treatments Chronic kidney disease stage III -Creatinine level at baseline, Hyperlipidemia -Continue statin Sick sinus syndrome -Status post pacemaker placement History of right kidney cancer -Status post right nephrectomy Chronic back pain -Continue tylenol Tobacco abuse -Pt counseled on cessation Cocaine abuse, counselled Disposition: TO HOME OR SELFCARE Time spent for discharge: [address] Hussein's Note: The patient is a 58-year-old man with multiple medical problems. He has severe obesity, obstructive sleep apnea on home CPAP, and chronic tobacco abuse. He a lso has a long history of a dilated, nonischemic cardiomyopathy. His regular manager of health is Dr. [facility]. Cardiac catheterization several years ago revealed no significant coronary artery disease, and patient was subsequently implanted with a defibrillator in 2005. He is unable to articulate his left ventricular ejection fraction percentage. The patient presents to the hospital at this time complaining of shortness of breath, chest tightness, cough. He denies noncompliance with his medications, but admits to recent consumption of high sodium [place] food and also noncompliance with his home CPAP therapy. His ECG is normal sinus rhythm, left axis deviation, left ventricular hypertrophy, poor R-wave progression but no acute ischemic changes. X-rays not available for review, but the report states no evidence of significant interstitial edema or heart failure exacerbation. Past Medical History Previous Medical History?: Yes Hypertension: Yes Heart Attack/AMI: Yes Congestive Heart Failure: Yes Diabetes: Yes Renal Disease: Yes Arthritis: Yes COPD: Yes Additional medical history: Sleep apnea and uses CPAP machine throught night and day as needed. 3 ruptured disc in back Surgical History Past Surgical History?: Yes Open Heart Surgery: Yes Pacemaker: Yes Internal Defibrillator: Yes Additional Surgical History: pacemaker Social History Smoking Status: Current Every Day Smoker Substance Use Type: Marijuana, Prescribed Family History Htn Medications Home Medications: Home Medications Medication Instructions Recorded Confirmed Last Taken Type ALBUTEROL Inhaler(NF) [VENTOLIN 2 puff IH Q4H PRN #1 inha 08/08/18 10/29/18 10/10/18 08:00 Rx Inhaler(NF)] Aspirin EC [Halfprin EC] 1 tab PO DAILY #30 08/08/18 10/29/18 10/10/18 08:00 Rx Fluticasone Propionate [Flovent 100 mcg IH BID PRN 10/11/18 10/29/18 10/10/18 08:00 History Diskus] Nitroglycerin [Nitrostat] 0.4 mg SL Q5M PRN 10/11/18 10/29/18 10/10/18 08:00 History Acetaminophen [Acetaminophen TAB] 650 mg PO Q4H PRN tablet 10/30/18 Unknown Rx AtorvaSTATin [Lipitor] 40 mg PO QHS #30 tab 10/30/18 Unknown Rx Carvedilol [Coreg] 12.5 mg PO BID #60 tab 10/30/18 Unknown Rx Furosemide [Lasix TAB] 40 mg PO QDAY #30 tablet 10/30/18 Unknown Rx Insulin Glargine [Lantus VIAL] 15 units SUB-Q QHS units 10/30/18 Unknown Rx Pantoprazole [Protonix TAB] 40 mg PO QDAY #30 tablet 10/30/18 Unknown Rx Sacubitril/Valsartan [Entresto 24 1 tab PO BID #30 tablet 10/30/18 Unknown Rx - 26 mg] Spironolactone [Aldactone] 25 mg PO QDAY #30 tablet 10/30/18 Unknown Rx amLODIPine [Norvasc] 1 tab PO DAILY #30 tablet 10/30/18 Unknown Rx hydrALAZINE [Apresoline TAB] 1 tab PO BID #90 tab 10/30/18 Unknown Rx Review of Systems ROS: Stated complaint: CHEST PAIN/PACE MAKER Other details as noted in HPI Constitutional: denies: chills, fever Eyes: denies: eye pain, eye discharge, vision change ENT: denies: ear pain, throat pain Respiratory: shortness of breath. denies: cough, wheezing Cardiovascular: chest pain. denies: palpitations Endocrine: no symptoms reported Gastrointestinal: denies: abdominal pain, nausea, diarrhea Genitourinary: denies: urgency, dysuria Musculoskeletal: denies: back pain, joint swelling, arthralgia Skin: denies: rash, lesions Neurological: denies: headache, weakness, paresthesias Psychiatric: denies: anxiety, depression Hematological/Lymphatic: denies: easy bleeding, easy bruising Medications and Allergies Allergies Allergy/AdvReac Type Severity Reaction Status Date / Time No Known Allergies Allergy Verified 12/16/18 15:32 Home Medications Medication Instructions Recorded Confirmed Last Taken Type ALBUTEROL Inhaler(NF) [VENTOLIN 2 puff IH Q4H PRN #1 inha 08/08/18 12/16/18 10/10/18 08:00 Rx Inhaler(NF)] Aspirin EC [Halfprin EC] 1 tab PO DAILY #30 08/08/18 12/16/18 10/10/18 08:00 Rx Fluticasone Propionate [Flovent 100 mcg IH BID PRN 10/11/18 12/16/18 10/10/18 08:00 History Diskus] Nitroglycerin [Nitrostat] 0.4 mg SL Q5M PRN 10/11/18 12/16/18 10/10/18 08:00 History Acetaminophen [Acetaminophen TAB] 650 mg PO Q4H PRN tablet 10/30/18 12/16/18 Unknown Rx AtorvaSTATin [Lipitor] 40 mg PO QHS #30 tab 10/30/18 12/16/18 Unknown Rx Carvedilol [Coreg] 12.5 mg PO BID #60 tab 10/30/18 12/16/18 Unknown Rx Furosemide [Lasix TAB] 40 mg PO QDAY #30 tablet 10/30/18 12/16/18 Unknown Rx Insulin Glargine [Lantus VIAL] 15 units SUB-Q QHS units 10/30/18 12/16/18 Unknown Rx Pantoprazole [Protonix TAB] 40 mg PO QDAY #30 tablet 10/30/18 12/16/18 Unknown Rx Sacubitril/Valsartan [Entresto 24 1 tab PO BID #30 tablet 10/30/18 12/16/18 Unknown Rx - 26 mg] Spironolactone [Aldactone] 25 mg PO QDAY #30 tablet 10/30/18 12/16/18 Unknown Rx amLODIPine [Norvasc] 1 tab PO DAILY #30 tablet 10/30/18 12/16/18 Unknown Rx hydrALAZINE [Apresoline TAB] 1 tab PO BID #90 tab 10/30/18 12/16/18 Unknown Rx Active Meds: Active Medications Acetaminophen (Tylenol) 650 mg PO Q4H PRN PRN Reason: Pain MILD(1-3)/Fever >100.5/GUZMAN Albuterol (Proventil) 2.5 mg IH Q4HRT PRN PRN Reason: Shortness Of Breath Amlodipine Besylate (Norvasc) 10 mg PO DAILY [facility] Last Admin: 12/16/18 22:41 Dose: 10 mg Documented by: Aspirin (Aspirin) 325 mg PO QDAY [facility] Atorvastatin Calcium (Lipitor) 40 mg PO QHS [facility] Last Admin: 12/16/18 22:33 Dose: 40 mg Documented by: Budesonide (Pulmicort) 0.5 mg IH Q12HRT PRN PRN Reason: YINA Carvedilol (Coreg) 12.5 mg PO BID [facility] Last Admin: 12/16/18 22:34 Dose: 12.5 mg Documented by: Dextrose (D50w (25gm) Syringe) 50 ml IV PRN PRN PRN Reason: Hypoglycemia Furosemide (Lasix) 40 mg IV 0600,1800 [facility] Last Admin: 12/17/18 05:10 Dose: 40 mg Documented by: Hydralazine HCl (Apresoline) 100 mg PO BID [facility] Last Admin: 12/16/18 22:33 Dose: 100 mg Documented by: Hydromorphone HCl (Dilaudid) 0.5 mg IV Q3H PRN PRN Reason: Pain , Severe (7-10) Insulin [facility] ([facility]us) [facility] Last Admin: 12/16/18 22:35 Dose: Not Given Documented by: Insulin Human Lispro (Humalog) 0 unit SUB-Q [facility]; Protocol Last Admin: 12/16/18 22:39 Dose: Not Given Documented by: Nitroglycerin (Nitrostat) 0.4 mg SL Q5M PRN PRN Reason: Chest pain Ondansetron HCl (Zofran) 4 mg IV Q8H PRN PRN Reason: Nausea And Vomiting Last Admin: 12/16/18 22:34 Dose: 4 mg Documented by: Oxycodone/Acetaminophen (Percocet 5/325) 1 tab PO Q6H PRN PRN Reason: Pain, Moderate (4-6) Last Admin: 12/17/18 06:21 Dose: 1 tab Documented by: Pantoprazole Sodium (Protonix) 40 mg PO QDAY [facility] Last Admin: 12/16/18 22:34 Dose: 40 mg Documented by: Potassium Chloride (K-Dur) 20 meq PO Q12H [facility] Last Admin: 09/14/19 22:33 Dose: 20 meq Documented by: Sodium Chloride (Sodium Chloride Flush Syringe 10 Ml) 10 ml IV BID [facility] Last Admin: 12/16/18 22:38 Dose: 10 ml Documented by: Sodium Chloride (Sodium Chloride Flush Syringe 10 Ml) 10 ml IV PRN PRN PRN Reason: LINE FLUSH Spironolactone (Aldactone) 25 mg PO QDAY [facility] Last Admin: 12/16/18 22:34 Dose: 25 mg Documented by: Exam - Constitutional Vitals: Temp Pulse Resp BP Pulse Ox 97.7 F 75 20 141/81 99 12/17/18 04:58 12/17/18 04:56 12/17/18 04:56 12/17/18 04:56 12/17/18 04:56 General appearance: Present: no acute distress, well-nourished - EENT Eyes: Present: PERRL ENT: hearing intact, clear oral mucosa - Neck Neck: Present: supple, normal ROM - Respiratory Respiratory effort: normal Respiratory: bilateral: CTA - Cardiovascular Heart rate: 88 Rhythm: regular Heart Sounds: Present: S1 & S2. Absent: rub, click - Extremities Extremities: no ischemia, pulses intact, pulses symmetrical, No edema Extremity abnormal: other (L wrist drop) Peripheral Pulses: within normal limits - Abdominal General gastrointestinal: Present: soft, non-tender, non-distended, normal bowel sounds Male genitourinary: Present: normal - Integumentary Integumentary: Present: clear, warm, dry - Musculoskeletal Musculoskeletal: gait normal, strength equal bilaterally - Psychiatric Psychiatric: appropriate mood/affect, intact judgment & insight - Neurologic Neurologic: CNII-XII intact, moves all extremities - Allied Health Allied health notes reviewed: nursing, case management Results - Labs CBC & Chem 7: 12/16/18 15:39 12/17/18 04:07 Labs: Laboratory Last Values WBC 6.7 K/mm3 (4.5-11.0) 12/16/18 15:39 RBC 5.57 M/mm3 (3.65-5.03) H 12/16/18 15:39 Hgb 12.6 gm/dl (11.8-15.2) 12/16/18 15:39 Hct 39.7 % (35.5-45.6) 12/16/18 15:39 MCV 71 fl (84-94) L 12/16/18 15:39 MCH 23 pg (28-32) L 12/16/18 15:39 MCHC 32 % (32-34) 12/16/18 15:39 RDW 16.5 % (13.2-15.2) H 12/16/18 15:39 Plt Count 218 K/mm3 (140-440) 12/16/18 15:39 Lymph % (Auto) 29.8 % (13.4-35.0) 12/16/18 15:39 Jenkins % (Auto) 8.3 % (0.0-7.3) H 12/16/18 15:39 Eos % (Auto) 2.5 % (0.0-4.3) 12/16/18 15:39 Baso % (Auto) 0.5 % (0.0-1.8) 12/16/18 15:39 Lymph # 2.0 K/mm3 (1.2-5.4) 12/16/18 15:39 Jenkins # 0.6 K/mm3 (0.0-0.8) 12/16/18 15:39 Eos # 0.2 K/mm3 (0.0-0.4) 12/16/18 15:39 Baso # 0.0 K/mm3 (0.0-0.1) 12/16/18 15:39 Seg Neutrophils % 58.9 % (40.0-70.0) 12/16/18 15:39 Seg Neutrophils # 4.0 K/mm3 (1.8-7.7) 12/16/18 15:39 PT 13.9 Sec. (12.2-14.9) 12/16/18 18:15 INR 1.10 (0.87-1.13) 12/16/18 18:15 APTT 29.6 Sec. (24.2-36.6) 12/16/18 18:15 304.77 ng/mlDDU (0-234) H 12/16/18 18:15 Sodium 141 mmol/L (137-145) 12/17/18 04:07 Potassium 4.6 mmol/L (3.6-5.0) 12/17/18 04:07 Chloride 105.7 mmol/L (98-107) 12/17/18 04:07 Carbon Dioxide 24 mmol/L (22-30) 12/17/18 04:07 16 mmol/L 12/17/18 04:07 BUN 28 mg/dL (9-20) H 12/17/18 04:07 2.1 mg/dL (0.8-1.5) H 12/17/18 04:07 Estimated GFR 39 ml/min 12/17/18 04:07 13 % 12/17/18 04:07 Glucose 131 mg/dL (75-100) H 12/17/18 04:07 POC Glucose 118 (70-105) H 12/16/18 21:02 7.0 % (4-6) H 12/16/18 20:03 Calcium 8.8 mg/dL (8.4-10.2) 12/17/18 04:07 0.30 mg/dL (0.1-1.2) 12/17/18 04:07 AST 19 units/L (5-40) 12/17/18 04:07 ALT 15 units/L (7-56) 12/17/18 04:07 94 units/L (35-129) 12/17/18 04:07 880 units/L (55-170) H 12/16/18 18:15 CK-MB (CK-2) 7.6 ng/mL (0.0-4.0) H 12/16/18 18:15 CK-MB (CK-2) Rel Index 0.8 (0-4) 12/16/18 18:15 0.032 ng/mL (0.00-0.029) H 12/16/18 20:38 NT-Pro-B Natriuret Pep 607.9 pg/mL (0-900) 12/16/18 18:15 6.9 g/dL (6.3-8.2) 12/17/18 04:07 3.7 g/dL (3.9-5) L 12/17/18 04:07 1.2 % 12/17/18 04:07 Triglycerides 115 mg/dL (2-149) 12/16/18 15:39 Cholesterol 128 mg/dL (50-199) 12/16/18 15:39 86 mg/dL (50-130) 12/16/18 15:39 38 mg/dL (40-59) L 12/16/18 15:39 3.36 % 12/16/18 15:39 Straw (Yellow) 12/17/18 04:32 Clear (Clear) 12/17/18 04:32 5.0 (5.0-7.0) 12/17/18 04:32 Ur Specific Okay 1.010 (1.003-1.030) 12/17/18 04:32 <15 mg/dl mg/dL (Negative) 12/17/18 04:32 Neg mg/dL (Negative) 12/17/18 04:32 Neg mg/dL (Negative) 12/17/18 04:32 Sm (Negative) 12/17/18 04:32 Neg (Negative) 12/17/18 04:32 Neg (Negative) 12/17/18 04:32 < 2.0 mg/dL (<2.0) 12/17/18 04:32 Ur Leukocyte Esterase Neg (Negative) 12/17/18 04:32 < 1.0 /HPF (0.0-6.0) 12/17/18 04:32 1.0 /HPF (0.0-6.0) 12/17/18 04:32 Presumptive negative 12/17/18 04:32 Presumptive negative 12/17/18 04:32 Ur Barbiturates Screen Presumptive negative 12/17/18 04:32 Ur Phencyclidine Scrn Presumptive negative 12/17/18 04:32 Ur Amphetamines Screen Presumptive negative 12/17/18 04:32 U Benzodiazepines Scrn Presumptive negative 12/17/18 04:32 U Marijuana (THC) Screen Presumptive negative 12/17/18 04:32 Short CBC 12/16/18 Range/Units 15:39 WBC 6.7 (4.5-11.0) K/mm3 Hgb 12.6 (11.8-15.2) gm/dl Hct 39.7 (35.5-45.6) % Plt Count 218 (140-440) K/mm3 BMP 12/16/18 12/17/18 15:39 04:07 Sodium 139 141 Potassium 4.3 4.6 Chloride 103.8 105.7 Carbon Dioxide 20 L 24 BUN 22 H 28 H Creatinine 2.1 H 2.1 H Glucose 139 H 131 H Calcium 9.1 8.8 Cardiac Enzymes 12/16/18 12/16/18 12/16/18 Range/Units 15:39 18:15 18:15 Total Creatine Kinase 880 H (55-170) units/L CK-MB (CK-2) 7.6 H (0.0-4.0) ng/mL Troponin T 0.055 H 0.033 H D (0.00-0.029) ng/mL 12/16/18 Range/Units 20:38 Total Creatine Kinase (55-170) units/L CK-MB (CK-2) (0.0-4.0) ng/mL Troponin T 0.032 H (0.00-0.029) ng/mL Liver Function 12/17/18 Range/Units 04:07 Total Bilirubin 0.30 (0.1-1.2) mg/dL AST 19 (5-40) units/L ALT 15 (7-56) units/L Alkaline Phosphatase 94 (35-129) units/L Albumin 3.7 L (3.9-5) g/dL Urine 12/17/18 Range/Units 04:32 Urine Color Straw (Yellow) Urine pH 5.0 (5.0-7.0) Ur Specific Okay 1.010 (1.003-1.030) Urine Protein <15 mg/dl (Negative) mg/dL Urine Glucose (UA) Neg (Negative) mg/dL - Imaging and Cardiology EKG: report reviewed (Sinus tachycardia Atrial premature complex LAE LAFB) Chest x-ray: report reviewed (NAF) Assessment and Plan Advance Directives: Yes (Full code) VTE prophylaxis?: Chemical Plan of care discussed with patient/family: Yes - Patient Problems (1) Acute on chronic systolic heart failure Current Visit: No Status: Acute Plan to address problem: IV Laix for now Daily weigts I/O's Cardiology consult (2) Wrist drop, left Current Visit: Yes Status: Chronic Plan to address problem: Work up done in the last admission Needs splint (3) HTN (hypertension) Current Visit: Yes Status: Chronic Qualifiers: Hypertension type: essential hypertension Qualified Code(s): I10 - Essential (primary) hypertension Plan to address problem: COnt antihypertensives (4) HLD (hyperlipidemia) Current Visit: Yes Status: Chronic Qualifiers: Hyperlipidemia type: mixed hyperlipidemia Qualified Code(s): E78.2 - Mixed hyperlipidemia Plan to address problem: Cont statins (5) IDDM (insulin dependent diabetes mellitus) Current Visit: Yes Status: Chronic Plan to address problem: COnt home insulin and coverage Check A1c (6) CKD (chronic kidney disease) Current Visit: Yes Status: Chronic Qualifiers: Chronic kidney disease stage: stage 3 (moderate) Qualified Code(s): N18.3 - Chronic kidney disease, stage 3 (moderate) Plan to address problem: Stable (7) Sleep apnea Current Visit: No Status: Chronic Qualifiers: Sleep apnea type: obstructive Qualified Code(s): G47.33 - Obstructive sleep apnea (adult) (pediatric) Plan to address problem: CPAP at night time (8) DVT prophylaxis Current Visit: Yes Status: Acute Plan to address problem: On Heparin and GI prophylaxis
[2018-12-17 07:49] LABS: Cocaine Screen,Urine PRESUMPTIVE POSITIVE
[2018-12-17] MEDS: HumaLOG SUB-Q SCH ×4 (08:06→21:50)
--- NOTE | 2018-12-17 10:03 | Consultation ---
History of Present Illness Consult date: 12/17/18 Consult reason: congestive heart failure History of present illness: 58 YO man with severe obesity, ROEL, chronic tobacco use, DM, Htn, and dilated cardiomyopathy s/p ICD who presented to [facility] with worsening exertional dyspnea and mid sternal chest discomfort. His BNP was moderately elevated in setting of renal failure. He reports he is essentially homeless now and has been intermittently missing his medications. He is normally followed by Dr. Lainez at [facility] – [place]. His last echocardiogram here at [facility] on 10/29/18 revealed improved EF of 45%, MPI on 10/12/18 revealed no significant ischemia with EF of 26%. ECG on presentation reveals SR, LAFB, and LVH Past History Past Medical History: COPD, diabetes, heart failure, hypertension Past Surgical History: Other (ICD implant) Social history: smoking Family history: diabetes, hypertension Medications and Allergies Allergies Allergy/AdvReac Type Severity Reaction Status Date / Time No Known Allergies Allergy Verified 12/16/18 15:32 Home Medications Medication Instructions Recorded Confirmed Last Taken Type ALBUTEROL Inhaler(NF) [VENTOLIN 2 puff IH Q4H PRN #1 inha 08/08/18 12/16/18 10/10/18 08:00 Rx Inhaler(NF)] Aspirin EC [Halfprin EC] 1 tab PO DAILY #30 08/08/18 12/16/18 10/10/18 08:00 Rx Fluticasone Propionate [Flovent 100 mcg IH BID PRN 10/11/18 12/16/18 10/10/18 08:00 History Diskus] Nitroglycerin [Nitrostat] 0.4 mg SL Q5M PRN 10/11/18 12/16/18 10/10/18 08:00 History Acetaminophen [Acetaminophen TAB] 650 mg PO Q4H PRN tablet 10/30/18 12/16/18 Unknown Rx AtorvaSTATin [Lipitor] 40 mg PO QHS #30 tab 10/30/18 12/16/18 Unknown Rx Carvedilol [Coreg] 12.5 mg PO BID #60 tab 10/30/18 12/16/18 Unknown Rx Furosemide [Lasix TAB] 40 mg PO QDAY #30 tablet 10/30/18 12/16/18 Unknown Rx Insulin Glargine [Lantus VIAL] 15 units SUB-Q QHS units 10/30/18 12/16/18 Unknown Rx Pantoprazole [Protonix TAB] 40 mg PO QDAY #30 tablet 10/30/18 12/16/18 Unknown Rx Sacubitril/Valsartan [Entresto 24 1 tab PO BID #30 tablet 10/30/18 12/16/18 Unknown Rx - 26 mg] Spironolactone [Aldactone] 25 mg PO QDAY #30 tablet 10/30/18 12/16/18 Unknown Rx amLODIPine [Norvasc] 1 tab PO DAILY #30 tablet 10/30/18 12/16/18 Unknown Rx hydrALAZINE [Apresoline TAB] 1 tab PO BID #90 tab 10/30/18 12/16/18 Unknown Rx Active Meds: Active Medications Acetaminophen (Tylenol) 650 mg PO Q4H PRN PRN Reason: Pain MILD(1-3)/Fever >100.5/GUZMAN Albuterol (Proventil) 2.5 mg IH Q4HRT PRN PRN Reason: Shortness Of Breath Amlodipine Besylate (Norvasc) 10 mg PO DAILY [facility] Last Admin: 12/16/18 22:41 Dose: 10 mg Documented by: Aspirin (Aspirin) 325 mg PO QDAY [facility] Atorvastatin Calcium (Lipitor) 40 mg PO QHS [facility] Last Admin: 12/16/18 22:33 Dose: 40 mg Documented by: Budesonide (Pulmicort) 0.5 mg IH Q12HRT PRN PRN Reason: YINA Carvedilol (Coreg) 12.5 mg PO BID [facility] Last Admin: 12/16/18 22:34 Dose: 12.5 mg Documented by: Dextrose (D50w (25gm) Syringe) 50 ml IV PRN PRN PRN Reason: Hypoglycemia Furosemide (Lasix) 40 mg IV 0600,1800 [facility] Last Admin: 12/17/18 05:10 Dose: 40 mg Documented by: Heparin Sodium (Porcine) (Heparin) 5,000 unit SUB-Q Q12HR [facility] Hydralazine HCl (Apresoline) 100 mg PO BID [facility] Last Admin: 12/16/18 22:33 Dose: 100 mg Documented by: Hydromorphone HCl (Dilaudid) 0.5 mg IV Q3H PRN PRN Reason: Pain , Severe (7-10) Insulin Glargine (Lantus) 15 units SUB-Q QHS [facility] Last Admin: 12/16/18 22:35 Dose: Not Given Documented by: Insulin Human Lispro (Humalog) 0 unit SUB-Q [facility]; Protocol Last Admin: 12/17/18 08:06 Dose: Not Given Documented by: Nitroglycerin (Nitrostat) 0.4 mg SL Q5M PRN PRN Reason: Chest pain Ondansetron HCl (Zofran) 4 mg IV Q8H PRN PRN Reason: Nausea And Vomiting Last Admin: 12/16/18 22:34 Dose: 4 mg Documented by: Oxycodone/Acetaminophen (Percocet 5/325) 1 tab PO Q6H PRN PRN Reason: Pain, Moderate (4-6) Last Admin: 12/17/18 06:21 Dose: 1 tab Documented by: Pantoprazole Sodium (Protonix) 40 mg PO QDAY [facility] Last Admin: 12/16/18 22:34 Dose: 40 mg Documented by: Potassium Chloride (K-Dur) 20 meq PO Q12H [facility] Last Admin: 12/16/18 22:33 Dose: 20 meq Documented by: Sodium Chloride (Sodium Chloride Flush Syringe 10 Ml) 10 ml IV BID [facility] Last Admin: 12/16/18 22:38 Dose: 10 ml Documented by: Sodium Chloride (Sodium Chloride Flush Syringe 10 Ml) 10 ml IV PRN PRN PRN Reason: LINE FLUSH Spironolactone (Aldactone) 25 mg PO QDAY [facility] Last Admin: 12/16/18 22:34 Dose: 25 mg Documented by: Review of Systems All systems: negative (per hpi) Physical Examination Vital Signs Temp Pulse Resp BP Pulse Ox 98.3 F 103 H 24 167/98 97 12/16/18 15:20 12/16/18 15:20 12/16/18 15:20 12/16/18 15:20 12/16/18 15:20 General appearance: obese Cardiac: Positive: Reg Rate and Rhythm. Negative: Audible Murmur Lungs: Positive: Decreased Breath Sounds Abdomen: Positive: Soft, Active Bowel Sounds Extremities: Present: edema (trace) Results 12/16/18 15:39 12/17/18 04:07 Cardiac Enzymes 12/16/18 12/16/18 12/16/18 Range/Units 15:39 15:39 18:15 WBC 6.7 (4.5-11.0) K/mm3 RBC 5.57 H (3.65-5.03) M/mm3 Hgb 12.6 (11.8-15.2) gm/dl Hct 39.7 (35.5-45.6) % MCV 71 L (84-94) fl MCH 23 L (28-32) pg MCHC 32 (32-34) % RDW 16.5 H (13.2-15.2) % Plt Count 218 (140-440) K/mm3 Lymph % (Auto) 29.8 (13.4-35.0) % Harper % (Auto) 8.3 H (0.0-7.3) % Eos % (Auto) 2.5 (0.0-4.3) % Baso % (Auto) 0.5 (0.0-1.8) % Lymph # 2.0 (1.2-5.4) K/mm3 Harper # 0.6 (0.0-0.8) K/mm3 Eos # 0.2 (0.0-0.4) K/mm3 Baso # 0.0 (0.0-0.1) K/mm3 Seg Neutrophils % 58.9 (40.0-70.0) % Seg Neutrophils # 4.0 (1.8-7.7) K/mm3 PT (12.2-14.9) Sec. INR (0.87-1.13) APTT (24.2-36.6) Sec. D-Dimer (0-234) ng/mlDDU Sodium 139 (137-145) mmol/L Potassium 4.3 (3.6-5.0) mmol/L Chloride 103.8 (98-107) mmol/L Carbon Dioxide 20 L (22-30) mmol/L Anion Gap 20 mmol/L BUN 22 H (9-20) mg/dL Creatinine 2.1 H (0.8-1.5) mg/dL Estimated GFR 39 ml/min BUN/Creatinine Ratio 10 % Glucose 139 H (75-100) mg/dL POC Glucose (70-105) Hemoglobin A1c (4-6) % Calcium 9.1 (8.4-10.2) mg/dL Total Bilirubin (0.1-1.2) mg/dL AST (5-40) units/L ALT (7-56) units/L Alkaline Phosphatase (35-129) units/L Total Creatine Kinase (55-170) units/L CK-MB (CK-2) (0.0-4.0) ng/mL CK-MB (CK-2) Rel Index (0-4) Troponin T 0.055 H 0.033 H D (0.00-0.029) ng/mL NT-Pro-B Natriuret Pep (0-900) pg/mL Total Protein (6.3-8.2) g/dL Albumin (3.9-5) g/dL Albumin/Globulin Ratio % Triglycerides 115 (2-149) mg/dL Cholesterol 128 (50-199) mg/dL LDL Cholesterol Direct 86 (50-130) mg/dL HDL Cholesterol 38 L (40-59) mg/dL Cholesterol/HDL Ratio 3.36 % Urine Color (Yellow) Urine Turbidity (Clear) Urine pH (5.0-7.0) Ur Specific Clarence (1.003-1.030) Urine Protein (Negative) mg/dL Urine Glucose (UA) (Negative) mg/dL Urine Ketones (Negative) mg/dL Urine Blood (Negative) Urine Nitrite (Negative) Urine Bilirubin (Negative) Urine Urobilinogen (<2.0) mg/dL Ur Leukocyte Esterase (Negative) Urine WBC (Auto) (0.0-6.0) /HPF Urine RBC (Auto) (0.0-6.0) /HPF Urine Opiates Screen Urine Methadone Screen Ur Barbiturates Screen Ur Phencyclidine Scrn Ur Amphetamines Screen U Benzodiazepines Scrn Urine Cocaine Screen U Marijuana (THC) Screen Drugs of Abuse Note 12/16/18 12/16/18 12/16/18 Range/Units 18:15 18:15 20:03 WBC (4.5-11.0) K/mm3 RBC (3.65-5.03) M/mm3 Hgb (11.8-15.2) gm/dl Hct (35.5-45.6) % MCV (84-94) fl MCH (28-32) pg MCHC (32-34) % RDW (13.2-15.2) % Plt Count (140-440) K/mm3 Lymph % (Auto) (13.4-35.0) % Harper % (Auto) (0.0-7.3) % Eos % (Auto) (0.0-4.3) % Baso % (Auto) (0.0-1.8) % Lymph # (1.2-5.4) K/mm3 Harper # (0.0-0.8) K/mm3 Eos # (0.0-0.4) K/mm3 Baso # (0.0-0.1) K/mm3 Seg Neutrophils % (40.0-70.0) % Seg Neutrophils # (1.8-7.7) K/mm3 PT 13.9 (12.2-14.9) Sec. INR 1.10 (0.87-1.13) APTT 29.6 (24.2-36.6) Sec. D-Dimer 304.77 H (0-234) ng/mlDDU Sodium (137-145) mmol/L Potassium (3.6-5.0) mmol/L Chloride (98-107) mmol/L Carbon Dioxide (22-30) mmol/L Anion Gap mmol/L BUN (9-20) mg/dL Creatinine (0.8-1.5) mg/dL Estimated GFR ml/min BUN/Creatinine Ratio % Glucose (75-100) mg/dL POC Glucose (70-105) Hemoglobin A1c 7.0 H (4-6) % Calcium (8.4-10.2) mg/dL Total Bilirubin (0.1-1.2) mg/dL AST (5-40) units/L ALT (7-56) units/L Alkaline Phosphatase (35-129) units/L Total Creatine Kinase 880 H (55-170) units/L CK-MB (CK-2) 7.6 H (0.0-4.0) ng/mL CK-MB (CK-2) Rel Index 0.8 (0-4) Troponin T (0.00-0.029) ng/mL NT-Pro-B Natriuret Pep 607.9 (0-900) pg/mL Total Protein (6.3-8.2) g/dL Albumin (3.9-5) g/dL Albumin/Globulin Ratio % Triglycerides (2-149) mg/dL Cholesterol (50-199) mg/dL LDL Cholesterol Direct (50-130) mg/dL HDL Cholesterol (40-59) mg/dL Cholesterol/HDL Ratio % Urine Color (Yellow) Urine Turbidity (Clear) Urine pH (5.0-7.0) Ur Specific Clarence (1.003-1.030) Urine Protein (Negative) mg/dL Urine Glucose (UA) (Negative) mg/dL Urine Ketones (Negative) mg/dL Urine Blood (Negative) Urine Nitrite (Negative) Urine Bilirubin (Negative) Urine Urobilinogen (<2.0) mg/dL Ur Leukocyte Esterase (Negative) Urine WBC (Auto) (0.0-6.0) /HPF Urine RBC (Auto) (0.0-6.0) /HPF Urine Opiates Screen Urine Methadone Screen Ur Barbiturates Screen Ur Phencyclidine Scrn Ur Amphetamines Screen U Benzodiazepines Scrn Urine Cocaine Screen U Marijuana (THC) Screen Drugs of Abuse Note 12/16/18 12/16/18 12/17/18 Range/Units 20:38 21:02 04:07 WBC (4.5-11.0) K/mm3 RBC (3.65-5.03) M/mm3 Hgb (11.8-15.2) gm/dl Hct (35.5-45.6) % MCV (84-94) fl MCH (28-32) pg MCHC (32-34) % RDW (13.2-15.2) % Plt Count (140-440) K/mm3 Lymph % (Auto) (13.4-35.0) % Harper % (Auto) (0.0-7.3) % Eos % (Auto) (0.0-4.3) % Baso % (Auto) (0.0-1.8) % Lymph # (1.2-5.4) K/mm3 Harper # (0.0-0.8) K/mm3 Eos # (0.0-0.4) K/mm3 Baso # (0.0-0.1) K/mm3 Seg Neutrophils % (40.0-70.0) % Seg Neutrophils # (1.8-7.7) K/mm3 PT (12.2-14.9) Sec. INR (0.87-1.13) APTT (24.2-36.6) Sec. D-Dimer (0-234) ng/mlDDU Sodium 141 (137-145) mmol/L Potassium 4.6 (3.6-5.0) mmol/L Chloride 105.7 (98-107) mmol/L Carbon Dioxide 24 (22-30) mmol/L Anion Gap 16 mmol/L BUN 28 H (9-20) mg/dL Creatinine 2.1 H (0.8-1.5) mg/dL Estimated GFR 39 ml/min BUN/Creatinine Ratio 13 % Glucose 131 H (75-100) mg/dL POC Glucose 118 H (70-105) Hemoglobin A1c (4-6) % Calcium 8.8 (8.4-10.2) mg/dL Total Bilirubin 0.30 (0.1-1.2) mg/dL AST 19 (5-40) units/L ALT 15 (7-56) units/L Alkaline Phosphatase 94 (35-129) units/L Total Creatine Kinase (55-170) units/L CK-MB (CK-2) (0.0-4.0) ng/mL CK-MB (CK-2) Rel Index (0-4) Troponin T 0.032 H (0.00-0.029) ng/mL NT-Pro-B Natriuret Pep (0-900) pg/mL Total Protein 6.9 (6.3-8.2) g/dL Albumin 3.7 L (3.9-5) g/dL Albumin/Globulin Ratio 1.2 % Triglycerides (2-149) mg/dL Cholesterol (50-199) mg/dL LDL Cholesterol Direct (50-130) mg/dL HDL Cholesterol (40-59) mg/dL Cholesterol/HDL Ratio % Urine Color (Yellow) Urine Turbidity (Clear) Urine pH (5.0-7.0) Ur Specific Clarence (1.003-1.030) Urine Protein (Negative) mg/dL Urine Glucose (UA) (Negative) mg/dL Urine Ketones (Negative) mg/dL Urine Blood (Negative) Urine Nitrite (Negative) Urine Bilirubin (Negative) Urine Urobilinogen (<2.0) mg/dL Ur Leukocyte Esterase (Negative) Urine WBC (Auto) (0.0-6.0) /HPF Urine RBC (Auto) (0.0-6.0) /HPF Urine Opiates Screen Urine Methadone Screen Ur Barbiturates Screen Ur Phencyclidine Scrn Ur Amphetamines Screen U Benzodiazepines Scrn Urine Cocaine Screen U Marijuana (THC) Screen Drugs of Abuse Note 12/17/18 12/17/18 12/17/18 Range/Units 04:32 04:32 07:45 WBC (4.5-11.0) K/mm3 RBC (3.65-5.03) M/mm3 Hgb (11.8-15.2) gm/dl Hct (35.5-45.6) % MCV (84-94) fl MCH (28-32) pg MCHC (32-34) % RDW (13.2-15.2) % Plt Count (140-440) K/mm3 Lymph % (Auto) (13.4-35.0) % Harper % (Auto) (0.0-7.3) % Eos % (Auto) (0.0-4.3) % Baso % (Auto) (0.0-1.8) % Lymph # (1.2-5.4) K/mm3 Harper # (0.0-0.8) K/mm3 Eos # (0.0-0.4) K/mm3 Baso # (0.0-0.1) K/mm3 Seg Neutrophils % (40.0-70.0) % Seg Neutrophils # (1.8-7.7) K/mm3 PT (12.2-14.9) Sec. INR (0.87-1.13) APTT (24.2-36.6) Sec. D-Dimer (0-234) ng/mlDDU Sodium (137-145) mmol/L Potassium (3.6-5.0) mmol/L Chloride (98-107) mmol/L Carbon Dioxide (22-30) mmol/L Anion Gap mmol/L BUN (9-20) mg/dL Creatinine (0.8-1.5) mg/dL Estimated GFR ml/min BUN/Creatinine Ratio % Glucose (75-100) mg/dL POC Glucose 139 H (70-105) Hemoglobin A1c (4-6) % Calcium (8.4-10.2) mg/dL Total Bilirubin (0.1-1.2) mg/dL AST (5-40) units/L ALT (7-56) units/L Alkaline Phosphatase (35-129) units/L Total Creatine Kinase (55-170) units/L CK-MB (CK-2) (0.0-4.0) ng/mL CK-MB (CK-2) Rel Index (0-4) Troponin T (0.00-0.029) ng/mL NT-Pro-B Natriuret Pep (0-900) pg/mL Total Protein (6.3-8.2) g/dL Albumin (3.9-5) g/dL Albumin/Globulin Ratio % Triglycerides (2-149) mg/dL Cholesterol (50-199) mg/dL LDL Cholesterol Direct (50-130) mg/dL HDL Cholesterol (40-59) mg/dL Cholesterol/HDL Ratio % Urine Color Straw (Yellow) Urine Turbidity Clear (Clear) Urine pH 5.0 (5.0-7.0) Ur Specific Clarence 1.010 (1.003-1.030) Urine Protein <15 mg/dl (Negative) mg/dL Urine Glucose (UA) Neg (Negative) mg/dL Urine Ketones Neg (Negative) mg/dL Urine Blood Sm (Negative) Urine Nitrite Neg (Negative) Urine Bilirubin Neg (Negative) Urine Urobilinogen < 2.0 (<2.0) mg/dL Ur Leukocyte Esterase Neg (Negative) Urine WBC (Auto) < 1.0 (0.0-6.0) /HPF Urine RBC (Auto) 1.0 (0.0-6.0) /HPF Urine Opiates Screen Presumptive negative Urine Methadone Screen Presumptive negative Ur Barbiturates Screen Presumptive negative Ur Phencyclidine Scrn Presumptive negative Ur Amphetamines Screen Presumptive negative U Benzodiazepines Scrn Presumptive negative Urine Cocaine Screen Presumptive positive U Marijuana (THC) Screen Presumptive negative Drugs of Abuse Note Disclamer Coagulation 12/16/18 Range/Units 18:15 PT 13.9 (12.2-14.9) Sec. INR 1.10 (0.87-1.13) APTT 29.6 (24.2-36.6) Sec. Lipids 12/16/18 Range/Units 15:39 Triglycerides 115 (2-149) mg/dL Cholesterol 128 (50-199) mg/dL HDL Cholesterol 38 L (40-59) mg/dL Cholesterol/HDL Ratio 3.36 % CBC 12/16/18 Range/Units 15:39 WBC 6.7 (4.5-11.0) K/mm3 RBC 5.57 H (3.65-5.03) M/mm3 Hgb 12.6 (11.8-15.2) gm/dl Hct 39.7 (35.5-45.6) % Plt Count 218 (140-440) K/mm3 Lymph # 2.0 (1.2-5.4) K/mm3 Harper # 0.6 (0.0-0.8) K/mm3 Eos # 0.2 (0.0-0.4) K/mm3 Baso # 0.0 (0.0-0.1) K/mm3 Comprehensive Metabolic Panel 12/16/18 12/17/18 Range/Units 15:39 04:07 Sodium 139 141 (137-145) mmol/L Potassium 4.3 4.6 (3.6-5.0) mmol/L Chloride 103.8 105.7 (98-107) mmol/L Carbon Dioxide 20 L 24 (22-30) mmol/L BUN 22 H 28 H (9-20) mg/dL Creatinine 2.1 H 2.1 H (0.8-1.5) mg/dL Glucose 139 H 131 H (75-100) mg/dL Calcium 9.1 8.8 (8.4-10.2) mg/dL AST 19 (5-40) units/L ALT 15 (7-56) units/L Alkaline Phosphatase 94 (35-129) units/L Total Protein 6.9 (6.3-8.2) g/dL Albumin 3.7 L (3.9-5) g/dL Assessment and Plan Multifactorial dyspnea including some element of Acute on chronic systolic heart failure Dilated cardiomyopathy s/p ICD EF 45% by echo but 26% by MPI in 10/2018 Obesity ROEL CKD Htn DM Recommend: Gentle diuresis while closely monitoring renal function and electrolytes Consider Nephrology consult Please obtain social work consult
[2018-12-17] MEDS: PROTONIX PO SCH (10:29)
[2018-12-17] MEDS: HEPARIN SUB-Q SCH ×2 (10:29→21:50)
[2018-12-17] MEDS: APRESOLINE PO SCH ×2 (10:29→21:49)
[2018-12-17] MEDS: ALDACTONE PO SCH (10:29)
[2018-12-17] MEDS: K-DUR PO SCH ×2 (10:29→22:52)
[2018-12-17] MEDS: NORVASC PO SCH (10:29)
[2018-12-17] MEDS: COREG PO SCH ×2 (10:29→21:49)
[2018-12-17] MEDS: ASPIRIN PO SCH (10:29)
[2018-12-17] MEDS: ENTRESTO 24 - 26 MG PO SCH ×2 (10:30→21:49)
[2018-12-17] MEDS: SODIUM CHLORIDE FLUSH SYRINGE 10 ML IV SCH ×2 (10:30→21:52)
--- NOTE | 2018-12-17 13:22 | Consultation ---
History of Present Illness - Reason for Consult Consult date: 12/17/18 acute renal failure, chronic renal failure - History of Present Illness The patient is a 58 YO male with history significant for Morbid Obesity, DM type 2, Hypertension, Hyperlipidemia, ROEL on CPAP, COPD, Non-ischemic cardiomyopathy, HFrEF, SSS s/p pacemaker, Tobacco smoking (1/2 pack a day), Cocaine use, RCC s/p R nephrectomy and CKD stage 3 who presented to [facility] ED with c/or chest pain and sob of one day duration. He reports substernal chest pressure, constant, not radiating and associated with shortness of breath and orthopnea. He snorted [place] about 4 days ago. Patient denies N, V, D, abd pain, dysuria, hematuria, cough, hemoptysis, dizziness, syncope, leg swelling or weakness. He is not followed by [employer]. Nephrology was consulted for further evaluation. Past History Past Medical History: COPD, diabetes, heart failure, hypertension, hyperlipidemia, renal failure, other (Cocaine use) Past Surgical History: Other (ICD implant) Social history: smoking Family history: diabetes, hypertension Medications and Allergies Allergies Allergy/AdvReac Type Severity Reaction Status Date / Time No Known Allergies Allergy Verified 12/16/18 15:32 Home Medications Medication Instructions Recorded Confirmed Last Taken Type ALBUTEROL Inhaler(NF) [VENTOLIN 2 puff IH Q4H PRN #1 inha 08/08/18 12/16/18 07/0 12/21 08:00 Rx Inhaler(NF)] Aspirin EC [Halfprin EC] 1 tab PO DAILY #30 08/08/18 12/16/18 10/10/18 08:00 Rx Fluticasone Propionate [Flovent 100 mcg IH BID PRN 10/11/18 12/16/18 10/10/18 08:00 History Diskus] Nitroglycerin [Nitrostat] 0.4 mg SL Q5M PRN 10/11/18 12/16/18 10/10/18 08:00 History Acetaminophen [Acetaminophen TAB] 650 mg PO Q4H PRN tablet 10/30/18 12/16/18 Unknown Rx AtorvaSTATin [Lipitor] 40 mg PO QHS #30 tab 10/30/18 12/16/18 Unknown Rx Carvedilol [Coreg] 12.5 mg PO BID #60 tab 10/30/18 12/16/18 Unknown Rx Furosemide [Lasix TAB] 40 mg PO QDAY #30 tablet 10/30/18 12/16/18 Unknown Rx Insulin Glargine [Lantus VIAL] 15 units SUB-Q QHS units 10/30/18 12/16/18 Unknown Rx Pantoprazole [Protonix TAB] 40 mg PO QDAY #30 tablet 10/30/18 12/16/18 Unknown Rx Sacubitril/Valsartan [Entresto 24 1 tab PO BID #30 tablet 10/30/18 12/16/18 Unknown Rx - 26 mg] Spironolactone [Aldactone] 25 mg PO QDAY #30 tablet 10/30/18 12/16/18 Unknown Rx amLODIPine [Norvasc] 1 tab PO DAILY #30 tablet 10/30/18 12/16/18 Unknown Rx hydrALAZINE [Apresoline TAB] 1 tab PO BID #90 tab 10/30/18 12/16/18 Unknown Rx Active Meds: Active Medications Acetaminophen (Tylenol) 650 mg PO Q4H PRN PRN Reason: Pain MILD(1-3)/Fever >100.5/GUMZAN Albuterol (Proventil) 2.5 mg IH Q4HRT PRN PRN Reason: Shortness Of Breath Amlodipine Besylate (Norvasc) 10 mg PO DAILY [facility] Last Admin: 12/17/18 10:29 Dose: 10 mg Documented by: Aspirin (Aspirin) 325 mg PO QDAY [facility] Last Admin: 12/17/18 10:29 Dose: 325 mg Documented by: Atorvastatin Calcium (Lipitor) 40 mg PO QHS [facility] Last Admin: 12/16/18 22:33 Dose: 40 mg Documented by: Budesonide (Pulmicort) 0.5 mg IH Q12HRT PRN PRN Reason: YINA Carvedilol (Coreg) 12.5 mg PO BID [facility] Last Admin: 12/17/18 10:29 Dose: 12.5 mg Documented by: Dextrose (D50w (25gm) Syringe) 50 ml IV PRN PRN PRN Reason: Hypoglycemia Furosemide (Lasix) 40 mg IV 0600,1800 [facility] Last Admin: 12/17/18 05:10 Dose: 40 mg Documented by: Heparin Sodium (Porcine) (Heparin) 5,000 unit SUB-Q Q12HR [facility] Last Admin: 12/17/18 10:29 Dose: 5,000 unit Documented by: Hydralazine HCl (Apresoline) 100 mg PO BID [facility] Last Admin: 12/17/18 10:29 Dose: 100 mg Documented by: Hydromorphone HCl (Dilaudid) 0.5 mg IV Q3H PRN PRN Reason: Pain , Severe (7-10) Insulin Glargine (Lantus) 15 units SUB-Q QHS [facility] Last Admin: 12/16/18 22:35 Dose: Not Given Documented by: Insulin Human Lispro (Humalog) 0 unit SUB-Q ACHS [facility]; Protocol Last Admin: 12/17/18 11:30 Dose: Not Given Documented by: Nitroglycerin (Nitrostat) 0.4 mg SL Q5M PRN PRN Reason: Chest pain Ondansetron HCl (Zofran) 4 mg IV Q8H PRN PRN Reason: Nausea And Vomiting Last Admin: 12/16/18 22:34 Dose: 4 mg Documented by: Oxycodone/Acetaminophen (Percocet 5/325) 1 tab PO Q6H PRN PRN Reason: Pain, Moderate (4-6) Last Admin: 12/17/18 06:21 Dose: 1 tab Documented by: Pantoprazole Sodium (Protonix) 40 mg PO QDAY [facility] Last Admin: 12/17/18 10:29 Dose: 40 mg Documented by: Potassium Chloride (K-Dur) 20 meq PO Q12H [facility] Last Admin: 12/17/18 10:29 Dose: 20 meq Documented by: Sodium Chloride (Sodium Chloride Flush Syringe 10 Ml) 10 ml IV BID [facility] Last Admin: 12/17/18 10:30 Dose: 10 ml Documented by: Sodium Chloride (Sodium Chloride Flush Syringe 10 Ml) 10 ml IV PRN PRN PRN Reason: LINE FLUSH Spironolactone (Aldactone) 25 mg PO QDAY [facility] Last Admin: 12/17/18 10:29 Dose: 25 mg Documented by: Review of Systems Constitutional: no weight loss, no weight gain, no fever, no chills, no anorexia, no fatigue, no weakness, no poor appetite Cardiovascular: chest pain, orthopnea, shortness of breath, dyspnea on exertion, high blood pressure, no edema, no syncope, no lightheadedness, no paroxysmal nocturnal dyspnea, no leg edema Respiratory: shortness of breath, dyspnea on exertion, no cough, no hemoptysis, no wheezing Gastrointestinal: no abdominal pain, no nausea, no vomiting, no diarrhea, no hematochezia Genitourinary Male: no dysuria, no hematuria Rectal: no bleeding Musculoskeletal: no muscle weakness, no muscle cramps Integumentary: no rash, no wounds, no jaundice Neurological: no paralysis, no seizures, no syncope, no convulsions, no aphasia, no change in speech, no change in mentation, no confusion, no memory loss Exam - Vital Signs Vital signs: Vital Signs Temp Pulse Resp BP Pulse Ox 98.3 F 103 H 24 167/98 97 12/16/18 15:20 12/16/18 15:20 12/16/18 15:20 12/16/18 15:20 12/16/18 15:20 - General Appearance General appearance: well-developed, well-nourished, appears stated age, obese, other (no distress) EENT: ATNC, PERRL, mucous membranes moist, hearing intact, vision intact Neck: Present: neck supple, trachea midline Respiratory: Clear to Ascultation Heart: regular, S1S2, no murmurs Gastrointestinal: Present: normoactive bowel sounds, obese. Absent: tenderness, distended Integumentary: no rash, warm and dry Neurologic: no asterixis, alert and oriented x3 Musculoskeletal: Present: other (no edema) Results - Lab Results 12/16/18 15:39 12/17/18 04:07 Most recent lab results Calcium 8.8 mg/dL (8.4-10.2) 12/17/18 04:07 - Image Kidney/bladder ultrasound: pending Assessment and Plan 1. Acute kidney injury: Vasomotor WILIAM superimposed on CKD stage 3 in the setting of CHF. Urine studies and Renal US ordered. Unilateral kidney. Monitor renal function. Renal prognosis is guarded. Avoid nephrotoxic agents. Meds dosage based on GFR. 2. FEN: Monitor lytes. 3. Acute on chronic Systolic CHF. 4. DM-2. 5. Hypertension: Monitor BP. 6. Cocaine use.
--- NOTE | 2018-12-17 17:44 | Ultrasound Report ---
ULTRASOUND RENAL INDICATION / CLINICAL INFORMATION: Acute renal failure.. COMPARISON: CT abdomen from 12/22/2009 FINDINGS: RIGHT KIDNEY: Surgically absent LEFT KIDNEY: Length = 13.7 cm. [normal > 9 cm] - Parenchymal Thickness = 2.2 cm. [normal > 1.5 cm] - Echogenicity: Normal. - Hydronephrosis: None. - Cyst or mass: No significant abnormality. - Stones: None seen. URINARY BLADDER: No significant abnormality. FREE FLUID: None. ADDITIONAL FINDINGS: None. IMPRESSION: 1. Previous right nephrectomy. Left kidney is unremarkable. Signer Name: Boubacar Cao MD Signed: 12/17/2018 5:39 PM Workstation Name: [id number]
--- NOTE | 2018-12-17 18:21 | Progress Note ---
Assessment and Plan 58-year-old male CMP, insulin-dependent diabetes, obstructive sleep apnea/COPD, hyperlipidemia sick sinus syndrome and status post pacemaker with renal insufficiency comes in for increasing SOB and Orthopnea.Also complains of L Hand weakness. Patient had w/u for l hand weakness last admission. Hypertensive crisis, resolving with -Monitored blood pressure and resumed home meds Chronic systolic heart failure with EF of 30-35% -No acute exacerbation. NIDDM2 with hyperglycemia -Placed On SSI and Lantus Obstructive sleep apnea -Continue CPAP at night COPD -No acute exacerbation -Continue nebulizer breathing treatments Chronic kidney disease stage III -Creatinine level at baseline, Hyperlipidemia -Continue statin Sick sinus syndrome -Status post pacemaker placement History of right kidney cancer -Status post right nephrectomy Chronic back pain -Continue tylenol Tobacco abuse -Pt counseled on cessation Cocaine abuse, counselled Subjective Date of service: 12/17/18 Principal diagnosis: chest pain, hypertensive emergency, T2 DM, chronic systolic heart failure Interval history: Patient is seen and examined. lying quietly in bed. In no acute distress. Objective - Exam Narrative Exam: Constitutional: Well-nourished well-developed. In no distress Head: Normocephalic atraumatic Eyes: Pupils are equal round and reactive to light Nose: No enlarged turbinates, no septal deviation. Mouth: Moist mucous membranes. Neck: Supple no thyromegaly. No bruit. No JVD Heart: Regular rate and rhythm, S1-S2 normal. No rubs murmurs or gallop Lungs: Decreased breath sounds bilaterally. no rales or rhonchi Abdomen: Soft, nontender. Bowel sound are present. Extremities: No edema, no cyanosis, no clubbing. Neuro: Alert oriented Oriented x3. No focal sensory or motor deficit. Skin: No rashes or hyperpigmented spots Musculoskeletal system: No joint pain or swelling Hematological: No petechia or subcutanous hemorrhages. Immunological: No multiple septic spots on the skin Lymphatic: No generalized lymphadenopathy Psychiatry: Euthymic. Calm. - Constitutional Vitals: Vital Signs - 12hr 12/17/18 12/17/18 12/17/18 08:49 10:56 11:29 Temperature 97.6 F Pulse Rate 70 57 L Pulse Rate [ 70 From Monitor] Respiratory 16 16 Rate Blood Pressure 175/93 O2 Sat by Pulse 96 96 Oximetry 12/17/18 12/17/18 12:12 16:59 Temperature 97.8 F 97.7 F Pulse Rate 66 69 Pulse Rate [ From Monitor] Respiratory 16 16 Rate Blood Pressure 163/97 166/93 O2 Sat by Pulse 96 97 Oximetry - Labs CBC & Chem 7: 12/16/18 15:39 12/17/18 04:07 Labs: Abnormal lab results 12/16/18 12/16/18 12/16/18 Range/Units 18:15 18:15 18:15 D-Dimer 304.77 H (0-234) ng/mlDDU BUN (9-20) mg/dL Creatinine (0.8-1.5) mg/dL Glucose (75-100) mg/dL POC Glucose (70-105) Hemoglobin A1c (4-6) % Total Creatine Kinase 880 H (55-170) units/L CK-MB (CK-2) 7.6 H (0.0-4.0) ng/mL Troponin T 0.033 H D (0.00-0.029) ng/mL Albumin (3.9-5) g/dL 12/16/18 12/16/18 12/16/18 Range/Units 20:03 20:38 21:02 D-Dimer (0-234) ng/mlDDU BUN (9-20) mg/dL Creatinine (0.8-1.5) mg/dL Glucose (75-100) mg/dL POC Glucose 118 H (70-105) Hemoglobin A1c 7.0 H (4-6) % Total Creatine Kinase (55-170) units/L CK-MB (CK-2) (0.0-4.0) ng/mL Troponin T 0.032 H (0.00-0.029) ng/mL Albumin (3.9-5) g/dL 12/17/18 12/17/18 12/17/18 Range/Units 04:07 07:45 12:17 D-Dimer (0-234) ng/mlDDU BUN 28 H (9-20) mg/dL Creatinine 2.1 H (0.8-1.5) mg/dL Glucose 131 H (75-100) mg/dL POC Glucose 139 H 139 H (70-105) Hemoglobin A1c (4-6) % Total Creatine Kinase (55-170) units/L CK-MB (CK-2) (0.0-4.0) ng/mL Troponin T (0.00-0.029) ng/mL Albumin 3.7 L (3.9-5) g/dL 12/17/18 Range/Units 17:06 D-Dimer (0-234) ng/mlDDU BUN (9-20) mg/dL Creatinine (0.8-1.5) mg/dL Glucose (75-100) mg/dL POC Glucose 145 H (70-105) Hemoglobin A1c (4-6) % Total Creatine Kinase (55-170) units/L CK-MB (CK-2) (0.0-4.0) ng/mL Troponin T (0.00-0.029) ng/mL Albumin (3.9-5) g/dL
[2018-12-17 18:47] LABS: Creatinine,Urine 22.5 mg/dL (0.1-20.0)
[2018-12-17] MEDS: LANTUS SUB-Q SCH (21:51)
[2018-12-18 05:12] LABS: Basophils % (Auto) 0.7 % (0.0-1.8); Eosinophils # (Auto) 0.4 K/mm3 (0.0-0.4); Hematocrit 40.9 % (35.5-45.6); Hemoglobin 12.9 gm/dl (11.8-15.2); Lymphocytes # (Auto) 1.9 K/mm3 (1.2-5.4); Lymphocytes % (Auto) 37.9 % (13.4-35.0); Mean Corpuscular HGB Conc 32 % (32-34); Mean Corpuscular Volume 72 fl (84-94); Monocytes # (Auto) 0.5 K/mm3 (0.0-0.8); Monocytes % (Auto) 10.5 % (0.0-7.3); Platelet Count 228 K/mm3 (140-440); Red Blood Count 5.72 M/mm3 (3.65-5.03); Red Cell Distribution Width 16.7 % (13.2-15.2)
[2018-12-18] MEDS: LASIX IV SCH (06:34)
[2018-12-18] MEDS: PERCOCET 5/325 PO PRN (07:05)
[2018-12-18 08:28] LABS: Calcium 9.2 mg/dL (8.4-10.2)
[2018-12-18 09:08] VITALS: BP 153/93
[2018-12-18] MEDS: COREG PO SCH (09:18)
[2018-12-18] MEDS: PROTONIX PO SCH (09:18)
[2018-12-18] MEDS: K-DUR PO SCH (09:18)
[2018-12-18] MEDS: ALDACTONE PO SCH (09:19)
[2018-12-18] MEDS: ASPIRIN PO SCH (09:19)
[2018-12-18] MEDS: ENTRESTO 24 - 26 MG PO SCH (09:19)
[2018-12-18] MEDS: HEPARIN SUB-Q SCH (09:19)
[2018-12-18] MEDS: APRESOLINE PO SCH (09:19)
[2018-12-18] MEDS: NORVASC PO SCH (09:19)
[2018-12-18] MEDS: HumaLOG SUB-Q SCH ×2 (09:21→11:44)
[2018-12-18] MEDS: SODIUM CHLORIDE FLUSH SYRINGE 10 ML IV SCH (09:22)
--- NOTE | 2018-12-18 10:11 | Discharge Summary ---
Providers - Providers Date of Admission: 12/16/18 18:06 Attending physician: JOHNIE DENNIS MD 12/16/18 20:28 Consult to Physician [CONS] Routine Comment: Consulting Provider: ANTIONETTE LOMBARDO Physician Instructions: Reason For Exam: chf exacerbation 12/17/18 08:07 Consult to Physician [CONS] Routine Comment: Consulting Provider: FELIX PALOMO Physician Instructions: Reason For Exam: CKD 12/17/18 10:32 Consult to Case Management [CONS] Routine Services Needed at Discharge: Flagger Notified:: case management Phone number called:: [phone] Was contact made?: Yes Time called:: 10:38 Comment:: spoke with the weekend test case developer Additional Physician Instructions: Patient will be homeless in 7 days Primary care physician: [employer] Hospitalization Condition: Stable Hospital course: 58-year-old man who presented to the hospital with chest pain. Patient also admitted that he was hungry and homeless and wanted to be admitted to the hospital. The patient admitted to missing some of his meds due to his current social situation. The patient was put back on all his medications he received social work consult to give him assistance with obtaining a personal long-term. The patient was diuresed while he was in the hospital. Kidney function improved and went back to baseline Tobacco abuse/dependence - tobacco cessation counseling performed for 11 minutes, nicotine patches as needed Preventative health counseling performed for 17 minutes Diagnosis Chest pain due to hypertensive urgency ROEL Hypertensive urgency Chronic systolic heart failure with EF of 30% Type 2 diabetes, insulin-dependent COPD, stable and chronic Chronic kidney disease stage III WILIAM/vasomotor nephropathy Sick sinus syndrome status post pacemaker History of right kidney cancer status post nephrectomy Tobacco abuse Disposition: - TO HOME OR SELFCARE Time spent for discharge: 33 mins Core Measure Documentation - Palliative Care Palliative Care/ Comfort Measures: Not Applicable - Core Measures Any of the following diagnoses?: heart failure - Heart Failure Discharge Requirements LISBETH/ARB for LVSD if EF <40%: Yes Beta jj at discharge: Yes Exam - Constitutional Vitals: Temp Pulse Resp BP Pulse Ox 98.1 F 76 16 153/93 95 12/18/18 09:04 12/18/18 09:19 12/18/18 09:04 12/18/18 09:19 12/18/18 09:04 General appearance: Present: no acute distress, well-nourished - EENT Eyes: Present: PERRL ENT: hearing intact, clear oral mucosa - Neck Neck: Present: supple, normal ROM - Respiratory Respiratory effort: normal Respiratory: bilateral: CTA - Cardiovascular Heart Sounds: Present: S1 & S2. Absent: rub, click - Extremities Extremities: pulses symmetrical, No edema Peripheral Pulses: within normal limits - Abdominal General gastrointestinal: Present: soft, non-tender, non-distended, normal bowel sounds Male genitourinary: Present: normal - Integumentary Integumentary: Present: clear, warm, dry - Musculoskeletal Musculoskeletal: gait normal, strength equal bilaterally - Psychiatric Psychiatric: appropriate mood/affect, intact judgment & insight - Neurologic Neurologic: CNII-XII intact, moves all extremities Plan Follow up with: PRIMARY CARE,MD [Primary Care Provider] - 7 Days Prescriptions: Insulin Glargine [Lantus VIAL] 15 units SUB-Q QHS #1 vial AtorvaSTATin [Lipitor] 40 mg PO QHS #30 tab Spironolactone [Aldactone] 25 mg PO QDAY #30 tablet hydrALAZINE [Apresoline TAB] 1 tab PO BID #60 tab Carvedilol [Coreg] 12.5 mg PO BID #60 tab Sacubitril/Valsartan [Entresto 24 - 26 mg] 1 tab PO BID #60 tablet Fluticasone Propionate [Flovent Diskus] 100 mcg IH BID PRN #1 blst.w.dev PRN Reason: YINA Aspirin EC [Halfprin EC] 1 tab PO DAILY #30 tablet Furosemide [Lasix TAB] 40 mg PO QDAY #30 tablet Nitroglycerin [Nitrostat] 0.4 mg SL Q5M PRN #30 tablet PRN Reason: Chest pain amLODIPine [Norvasc] 1 tab PO DAILY #30 tablet Pantoprazole [Protonix TAB] 40 mg PO QDAY #30 tablet
--- NOTE | 2018-12-18 10:14 | Progress Note ---
Assessment and Plan 1. Acute kidney injury: Vasomotor WILIAM superimposed on CKD stage 3 in the setting of CHF. Renal US showed unilateral kidney with no e/o obstructive uropathy. Unilateral kidney. Renal function is stable. Monitor renal function. Renal prognosis is guarded. Avoid nephrotoxic agents. Meds dosage based on GFR. 2. FEN: Monitor lytes. 3. Acute on chronic Systolic CHF. 4. DM-2. 5. Hypertension: Monitor BP. 6. Cocaine use: Counseled. Subjective Date of service: 12/18/18 Principal diagnosis: chest pain, hypertensive emergency, T2 DM, chronic systolic heart failure Interval history: Patient was seen and examined at the bedside. Objective - Vital Signs Vital signs: Vital Signs - 12hr 12/17/18 12/18/18 12/18/18 22:30 00:05 03:53 Temperature 98.0 F 98.0 F Pulse Rate 86 80 84 Respiratory 18 18 18 Rate Blood Pressure 156/87 160/94 O2 Sat by Pulse 98 95 99 Oximetry 12/18/18 12/18/18 12/18/18 04:00 09:04 09:18 Temperature 98.1 F Pulse Rate 84 76 76 Respiratory 16 Rate Blood Pressure 153/93 153/93 O2 Sat by Pulse 95 Oximetry 12/18/18 09:19 Temperature Pulse Rate 76 Respiratory Rate Blood Pressure 153/93 O2 Sat by Pulse Oximetry - General Appearance General appearance: well-developed, well-nourished, appears stated age, obese, other (no distress) EENT: ATNC, PERRL, hearing intact, vision intact Neck: supple Respiratory: Present: Clear to Ascultation Cardiology: regular, S1S2, no murmurs Gastrointestinal: normoactive bowel sounds, no tenderness, no distended, obese Integumentary: no rash, warm and dry Neurologic: no focal deficit, no asterixis, alert and oriented x3 Musculoskeletal: other (no edema) - Lab 12/18/18 04:43 12/18/18 07:33 Most recent lab results Calcium 9.2 mg/dL (8.4-10.2) 12/18/18 07:33 Phosphorus 3.60 mg/dL (2.5-4.5) 12/18/18 04:43 Magnesium 1.80 mg/dL (1.7-2.3) 12/18/18 07:33 22.5 mg/dL (0.1-20.0) H 12/17/18 Unknown 136 mmol/L 12/17/18 Unknown Medications & Allergies - Medications Allergies/Adverse Reactions: Allergies No Known Allergies Allergy (Verified 12/16/18 15:32) Home Medications: Home Medications Medication Instructions Recorded Confirmed Last Taken Type ALBUTEROL Inhaler(NF) [VENTOLIN 2 puff IH Q4H PRN #1 inha 08/08/18 12/16/1812/21 08:00 Rx Inhaler(NF)] Acetaminophen [Acetaminophen TAB] 650 mg PO Q4H PRN tablet 10/30/18 12/16/18 Unknown Rx Aspirin EC [Halfprin EC] 1 tab PO DAILY #30 tablet 12/18/18 Unknown Rx AtorvaSTATin [Lipitor] 40 mg PO QHS #30 tab 12/18/18 Unknown Rx Carvedilol [Coreg] 12.5 mg PO BID #60 tab 12/18/18 Unknown Rx Fluticasone Propionate [Flovent 100 mcg IH BID PRN #1 blst.w.dev 12/18/18 Unknown Rx Diskus] Furosemide [Lasix TAB] 40 mg PO QDAY #30 tablet 12/18/18 Unknown Rx Insulin Glargine [Lantus VIAL] 15 units SUB-Q QHS #1 vial 12/18/18 Unknown Rx Nitroglycerin [Nitrostat] 0.4 mg SL Q5M PRN #30 tablet 12/18/18 Unknown Rx Pantoprazole [Protonix TAB] 40 mg PO QDAY #30 tablet 12/18/18 Unknown Rx Sacubitril/Valsartan [Entresto 24 1 tab PO BID #60 tablet 12/18/18 Unknown Rx - 26 mg] Spironolactone [Aldactone] 25 mg PO QDAY #30 tablet 12/18/18 Unknown Rx amLODIPine [Norvasc] 1 tab PO DAILY #30 tablet 12/18/18 Unknown Rx hydrALAZINE [Apresoline TAB] 1 tab PO BID #60 tab 12/18/18 Unknown Rx Active Medications: Generic Name Dose Route Start Last Admin Trade Name Freq PRN Reason Stop Dose Admin Acetaminophen 650 mg 12/16/18 20:26 Tylenol PO Q4H PRN Pain MILD(1-3)/Fever >100.5/GUZMAN Albuterol 2.5 mg 12/16/18 21:04 Proventil IH Q4HRT PRN Shortness Of Breath Amlodipine Besylate 10 mg 12/16/18 21:00 12/18/18 09:19 Norvasc PO 10 mg DAILY CAMI Administration Aspirin 325 mg 12/17/18 10:00 12/18/18 09:19 Aspirin PO 325 mg QDAY CAMI Administration Atorvastatin Calcium 40 mg 12/16/18 22:00 12/17/18 21:49 Lipitor PO 40 mg QHS [facility] Administration Budesonide 0.5 mg 12/16/18 22:13 Pulmicort IH Q12HRT PRN YINA Carvedilol 12.5 mg 12/16/18 22:00 12/18/18 09:18 Coreg PO 12.5 mg BID [facility] Administration Dextrose 50 ml 12/16/18 20:28 D50w (25gm) Syringe IV PRN PRN Hypoglycemia Furosemide 40 mg 12/17/18 06:00 12/18/18 06:34 Lasix IV 40 mg 0600,1800 [facility] Administration Heparin Sodium (Porcine) 5,000 unit 12/17/18 10:00 12/18/18 09:19 Heparin SUB-Q 5,000 unit Q12HR CAMI Administration Hydralazine HCl 100 mg 12/16/18 22:00 12/18/18 09:19 Apresoline PO 100 mg BID [facility] Administration Hydromorphone HCl 0.5 mg 12/16/18 20:28 Dilaudid IV Q3H PRN Pain , Severe (7-10) Insulin Glargine 15 units 12/16/18 22:00 12/17/18 21:51 Lantus SUB-Q Not Given QHS [facility] Insulin Human Lispro 0 unit 12/16/18 22:00 12/18/18 09:21 Humalog SUB-Q 2 unit ACHS [facility] Administration Protocol Nitroglycerin 0.4 mg 12/16/18 20:26 Nitrostat SL Q5M PRN Chest pain Ondansetron HCl 4 mg 12/16/18 20:28 12/16/18 22:34 Zofran IV 4 mg Q8H PRN Administration Nausea And Vomiting Oxycodone/Acetaminophen 1 tab 12/16/18 20:28 12/18/18 07:05 Percocet 5/325 PO 1 tab Q6H PRN Administration Pain, Moderate (4-6) Pantoprazole Sodium 40 mg 12/16/18 21:00 12/18/18 09:18 Protonix PO 40 mg QDAY CAMI Administration Potassium Chloride 20 meq 12/16/18 22:00 12/18/18 09:18 K-Dur PO 20 meq Q12H CAMI Administration Sodium Chloride 10 ml 12/16/18 22:00 12/18/18 09:22 Sodium Chloride Flush Syringe 10 Ml IV 10 ml BID CAMI Administration Sodium Chloride 10 ml 12/16/18 20:28 Sodium Chloride Flush Syringe 10 Ml IV PRN PRN LINE FLUSH Spironolactone 25 mg 12/16/18 21:00 12/18/18 09:19 Aldactone PO 25 mg QDAY CAMI Administration
--- NOTE | 2018-12-18 10:42 | Progress Note ---
Assessment and Plan Shortness of breath, multifactorial decompensated heart failure s/t noncompliance noncompliance with home CPAP therapy Chronic kidney disease Obesity Obstructive sleep apnea Chronic tobacco abuse Dilated, nonischemic cardiomyopathy EF 45-50% by echo 10/2018 no ischemia by MPI 10/[address] Laine[facility] Substance abuse Recommendations: Fluid/sodium restrictions. Continue medical therapy for dilated nonischemic cardiomyopathy. Subjective Date of service: 12/18/18 Principal diagnosis: chest pain, hypertensive emergency, T2 DM, chronic systolic heart failure Interval history: Patient reports he is feeling better. Objective Vital Signs Temp Pulse Pulse Resp BP Pulse Ox 12/18/18 09:19 76 153/93 12/18/18 09:18 76 153/93 12/18/18 09:04 98.1 F 76 16 153/93 95 12/18/18 04:00 84 12/18/18 03:53 98.0 F 84 18 160/94 99 12/18/18 00:05 98.0 F 80 18 156/87 95 12/17/18 22:30 86 18 98 12/17/18 21:59 59 L 18 96 12/17/18 21:49 59 L 160/88 12/17/18 20:00 59 L 12/17/18 19:35 98.0 F 59 L 20 160/88 95 12/17/18 16:59 97.7 F 69 16 166/93 97 12/17/18 12:12 97.8 F 66 16 163/97 96 12/17/18 11:29 57 L 12/17/18 10:56 70 16 96 - Physical Examination General: No Apparent Distress HEENT: Positive: PERRL Neck: Positive: neck supple, trachea midline Cardiac: Positive: Reg Rate and Rhythm Lungs: Positive: Decreased Breath Sounds Abdomen: Positive: Soft, Active Bowel Sounds Extremities: Absent: edema - Labs and Meds Cardiac Enzymes 12/18/18 Range/Units 04:43 AST 20 (5-40) units/L CBC 12/18/18 Range/Units 04:43 WBC 5.1 (4.5-11.0) K/mm3 RBC 5.72 H (3.65-5.03) M/mm3 Hgb 12.9 (11.8-15.2) gm/dl Hct 40.9 (35.5-45.6) % Plt Count 228 (140-440) K/mm3 Lymph # 1.9 (1.2-5.4) K/mm3 Teller # 0.5 (0.0-0.8) K/mm3 Eos # 0.4 (0.0-0.4) K/mm3 Baso # 0.0 (0.0-0.1) K/mm3 Comprehensive Metabolic Panel 12/18/18 12/18/18 Range/Units 04:43 07:33 Sodium 140 140 (137-145) mmol/L Potassium 4.5 4.4 (3.6-5.0) mmol/L Chloride 101.6 101.3 (98-107) mmol/L Carbon Dioxide 26 25 (22-30) mmol/L BUN 26 H 26 H (9-20) mg/dL Creatinine 1.9 H 1.9 H (0.8-1.5) mg/dL Glucose 133 H 153 H (75-100) mg/dL Calcium 9.0 9.2 (8.4-10.2) mg/dL AST 20 (5-40) units/L ALT 15 (7-56) units/L Alkaline Phosphatase 106 (35-129) units/L Total Protein 7.7 (6.3-8.2) g/dL Albumin 4.0 (3.9-5) g/dL
== END 2018-12-18 16:50 | disposition home or self-care (01) | DRG 291 ==
LOC: ED 15:02 → 4A 18:06
PROVIDERS: ADMIT Internal Medicine; ATTEND Internal Medicine
PROC: 5A09357 Assistance with Respiratory Ventilation, Less than 24 Consecutive Hours, Continuous Positive Airway Pressure (ICD-10-PCS; principal; 2018-12-16)
PROC: 5A09357 Assistance with Respiratory Ventilation, Less than 24 Consecutive Hours, Continuous Positive Airway Pressure (ICD-10-PCS; 2018-12-17)
DX: I13.0 Hypertensive heart and chronic kidney disease with heart failure and stage 1 through stage 4 chronic kidney disease, or unspecified chronic kidney disease (principal); I50.23 Acute on chronic systolic (congestive) heart failure; N17.0 Acute kidney failure with tubular necrosis; Z68.41 Body mass index [BMI] 40.0-44.9, adult; E11.22 Type 2 diabetes mellitus with diabetic chronic kidney disease; N18.3 Chronic kidney disease, stage 3 (moderate); F17.210 Nicotine dependence, cigarettes, uncomplicated; F12.90 Cannabis use, unspecified, uncomplicated; I49.5 Sick sinus syndrome; G47.33 Obstructive sleep apnea (adult) (pediatric); I42.0 Dilated cardiomyopathy; I16.0 Hypertensive urgency; E78.2 Mixed hyperlipidemia; E66.01 Morbid (severe) obesity due to excess calories; Z71.6 Tobacco abuse counseling; Z95.5 Presence of coronary angioplasty implant and graft; Z79.51 Long term (current) use of inhaled steroids; Z79.82 Long term (current) use of aspirin; Z79.4 Long term (current) use of insulin; I25.2 Old myocardial infarction; Z82.49 Family history of ischemic heart disease and other diseases of the circulatory system; Z83.3 Family history of diabetes mellitus; Z90.5 Acquired absence of kidney; Z85.528 Personal history of other malignant neoplasm of kidney
CPT/HCPCS: 36415; 71045; 76770; 80048; 80053; 80061; 80307; 81001; 82550; 82553; 82570; 82962; 83036; 83735; 83880; 83970; 84100; 84300; 84484; 85025; 85379; 85610; 85730; 87116; 93005; 93010; 96374; 99406; G0378; A9270-GY; J1644; J1815; J1940; J2405

== ENCOUNTER 2019-03-03 04:06 | Observation (INO) | payer MEDICARE ==
[2019-03-03] MEDS: NITROGLYCERIN 0.4 MG TAB SUBL SL ONE ×3 (04:22→05:09)
[2019-03-03 04:47] LABS: Basophils % (Auto) 0.6 % (0.0-1.8); Eosinophils # (Auto) 0.2 K/mm3 (0.0-0.4); Eosinophils % (Auto) 3.6 % (0.0-4.3); Hematocrit 38.4 % (35.5-45.6); Lymphocytes # (Auto) 1.8 K/mm3 (1.2-5.4); Lymphocytes % (Auto) 27.4 % (13.4-35.0); Mean Corpuscular HGB Conc 31 % (32-34); Mean Corpuscular Volume 73 fl (84-94); Monocytes # (Auto) 0.6 K/mm3 (0.0-0.8); Monocytes % (Auto) 9.8 % (0.0-7.3); Platelet Count 234 K/mm3 (140-440); Red Blood Count 5.23 M/mm3 (3.65-5.03); Red Cell Distribution Width 18.1 % (13.2-15.2)
--- NOTE | 2019-03-03 04:50 | XRay Report ---
CHEST 1 VIEW INDICATION / CLINICAL INFORMATION: Chest Pain. COMPARISON: None available. FINDINGS: SUPPORT DEVICES: None. HEART / MEDIASTINUM: No significant abnormality. LUNGS / PLEURA: No significant pulmonary or pleural abnormality. No pneumothorax. ADDITIONAL FINDINGS: No significant additional findings. IMPRESSION: 1. No acute findings. Signer Name: Tony Barnes MD Signed: 03/03/2019 4:45 AM Workstation Name: [id number] Designed
[2019-03-03 04:57] LABS: Albumin 3.8 g/dL (3.9-5); Calcium 8.9 mg/dL (8.4-10.2)
[2019-03-03] MEDS ORDERED: ACETAMINOPHEN 500 MG TAB PO ONE (05:30)
--- NOTE | 2019-03-03 06:09 | Emergency Department Report ---
ED Chest Pain HPI - General Chief Complaint: Chest Pain Stated Complaint: CHETS PAIN Time Seen by Provider: 03/03/19 04:21 Source: patient, EMS Mode of arrival: Stretcher Limitations: No Limitations - History of Present Illness Initial Comments: This is a 58-year-old man who states he gets chest pain nearly every day. He has been previously homeless and admitted for chest pain and homelessness. His chest pain was ascribed to a hypertensive emergency. He has a history of a nonischemic cardiomyopathy and normal coronary arteries on cath. Patient states that he had midsternal chest pain which woke him from sleep. He does complain of shortness of breath. He was given nitroglycerin which she states was of benefit. EMS report states that the patient had ST elevation on a prehospital EKG. I do not have evidence of that at this time. His EKGs have all the prior EKGs that I seen today from telemetry or not consistent with STEMI At the time of my encounter, he is not complaining of chest pain. The chest pain was not previously penetrating or radiating. It was not pleuritic in nature. The patient did not suffer from any cough or hemoptysis. He is comfortable at this time. Hospitalization 12/21 Condition: Stable Hospital course: 58-year-old man who presented to the hospital with chest pain. Patient also admitted that he was hungry and homeless and wanted to be admitted to the hospital. The patient admitted to missing some of his meds due to his current social situation. The patient was put back on all his medications he received social work consult to give him assistance with obtaining a personal long term. The patient was diuresed while he was in the hospital. Kidney function improved and went back to baseline Tobacco abuse/dependence - tobacco cessation counseling performed for 11 minutes, nicotine patches as needed Preventative health counseling performed for 17 minutes Diagnosis Chest pain due to hypertensive urgency ROEL Hypertensive urgency Chronic systolic heart failure with EF of 30% Type 2 diabetes, insulin-dependent COPD, stable and chronic Chronic kidney disease stage III WILIAM/vasomotor nephropathy Sick sinus syndrome status post pacemaker History of right kidney cancer status post nephrectomy Tobacco abuse Disposition: TO HOME OR SELFCARE Time spent for discharge: 33 mins History of Present Illness Consult date: 08/07/18 Consult reason: congestive heart failure History of present illness: The patient is a 58-year-old man with multiple medical problems. He has severe obesity, obstructive sleep apnea on home CPAP, and chronic tobacco abuse. He also has a long history of a dilated, nonischemic cardiomyopathy. 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 [facility]. Cardiac catheterization several years ago revealed no significant coronary artery disease, and patient was subsequently implanted with a defibrillator in 2005. He is unable to articulate his left ventricular ejection fraction percentage. The patient presents to the hospital at this time complaining of shortness of breath, chest tightness, cough. He denies noncompliance with his medications, but admits to recent consumption of high sodium [place] food and also noncompliance with his home CPAP therapy. His ECG is normal sinus rhythm, left axis deviation, left ventricular hypertrophy, poor R-wave progression but no acute ischemic changes. X-rays not available for review, but the report states no evidence of significant interstitial edema or heart failure exacerbation. MD Complaint: chest pain -: During the night Onset: awoke with symptoms Pain Location: substernal Pain Radiation: none Severity: moderate Severity scale (0 -10): 7 Quality: aching Consistency: now resolved Improves With: nitroglycerin Worsens With: nothing Context: other (history of nonischemic cardiomyopathy) re: dyspnea. denies: nausea, vomting, diaphoresis Other Symptoms: denies: cough, fever, syncope Treatments Prior to Arrival: nitroglycerin - Related Data Home Medications Medication Instructions Recorded Confirmed Last Taken Bumetanide 2 mg PO DAILY 03/03/19 03/03/19 03/02/19 22:00 Potassium Citrate [Potassium 10 meq PO DAILY 03/03/19 03/03/19 03/02/19 10:00 Citrate ER] Tamsulosin [Flomax] 0.4 mg PO QDAY 03/03/19 03/03/19 03/02/19 22:00 Torsemide [Demadex] 20 mg PO BID 03/03/19 03/03/19 03/02/19 22:00 glipiZIDE [Glucotrol] 10 mg PO BID 03/03/19 03/03/19 03/02/19 22:00 hydrALAZINE [Apresoline TAB] 50 mg PO TID 03/03/19 03/03/19 03/02/19 22:00 Previous Rx's Medication Instructions Recorded Last Taken Type AtorvaSTATin [Lipitor] 40 mg PO QHS #30 tab 12/18/18 03/02/19 22:00 Rx Fluticasone Propionate [Flovent 100 mcg IH BID PRN #1 blst.w.dev 12/18/18 Unknown Rx Diskus] Nitroglycerin [Nitrostat] 0.4 mg SL Q5M PRN #30 tablet 12/18/18 03/03/19 04:37 Rx Sacubitril/Valsartan [Entresto 24 1 tab PO BID #60 tablet 12/18/18 03/02/19 22:00 Rx - 26 mg] amLODIPine 1 tab PO DAILY #30 tablet 12/18/18 03/02/19 10:00 Rx carvediloL [Coreg] 12.5 mg PO BID #60 tab 12/18/18 03/02/19 22:00 Rx Allergies Allergy/AdvReac Type Severity Reaction Status Date / Time No Known Allergies Allergy Verified 12/16/18 15:32 Heart Score - HEART Score History: Slightly suspicious EKG: Non-specific Age: 45-65 Risk factors: 1-2 risk factors Troponin: 1-3x normal limit HEART Score: 4 - Critical Actions Critical Actions: 4-6 pts:12-16.6% risk of adverse cardiac event. Should be admitted ED Review of Systems ROS: Stated complaint: CHETS PAIN Other details as noted in HPI Constitutional: denies: chills, fever Eyes: denies: eye pain, eye discharge, vision change ENT: denies: ear pain, throat pain Respiratory: shortness of breath. denies: cough, wheezing Cardiovascular: chest pain. denies: palpitations Endocrine: no symptoms reported Gastrointestinal: denies: abdominal pain, nausea, diarrhea Genitourinary: denies: urgency, dysuria Musculoskeletal: denies: back pain, joint swelling, arthralgia Skin: denies: rash, lesions Neurological: denies: headache, weakness, paresthesias Psychiatric: denies: anxiety, depression Hematological/Lymphatic: denies: easy bleeding, easy bruising ED Past Medical Hx - Past Medical History Previous Medical History?: Yes Hx Hypertension: Yes Hx Heart Attack/AMI: Yes Hx Congestive Heart Failure: Yes Hx Diabetes: Yes Hx Renal Disease: Yes Hx Arthritis: Yes Hx Asthma: No Hx COPD: Yes Hx HIV: No Additional medical history: Sleep apnea and uses CPAP machine throught night and day as needed. 3 ruptured disc in back - Surgical History Past Surgical History?: Yes Hx Open Heart Surgery: Yes Hx Pacemaker: Yes Hx Internal Defibrillator: Yes Additional Surgical History: pacemaker, right kidney removed - Social History Smoking Status: Current Every Day Smoker Substance Use Type: Prescribed - Medications Home Medications: Home Medications Medication Instructions Recorded Confirmed Last Taken Type AtorvaSTATin [Lipitor] 40 mg PO QHS #30 tab 12/18/18 03/03/19 03/02/19 22:00 Rx Fluticasone Propionate [Flovent 100 mcg IH BID PRN #1 blst.w.dev 12/18/18 03/03/19 Unknown Rx Diskus] Nitroglycerin [Nitrostat] 0.4 mg SL Q5M PRN #30 tablet 12/18/18 03/03/19 03/03/19 04:37 Rx Sacubitril/Valsartan [Entresto 24 1 tab PO BID #60 tablet 12/18/18 03/03/19 03/02/19 22:00 Rx - 26 mg] amLODIPine 1 tab PO DAILY #30 tablet 12/18/18 03/03/19 03/02/19 10:00 Rx carvediloL [Coreg] 12.5 mg PO BID #60 tab 12/18/18 03/03/19 03/02/19 22:00 Rx Bumetanide 2 mg PO DAILY 03/03/19 03/03/19 03/02/19 22:00 History Potassium Citrate [Potassium 10 meq PO DAILY 03/03/19 03/03/19 03/02/19 10:00 History Citrate ER] Tamsulosin [Flomax] 0.4 mg PO QDAY 03/03/19 03/03/19 03/02/19 22:00 History Torsemide [Demadex] 20 mg PO BID 03/03/19 03/03/19 03/02/19 22:00 History glipiZIDE [Glucotrol] 10 mg PO BID 03/03/19 03/03/19 03/02/19 22:00 History hydrALAZINE [Apresoline TAB] 50 mg PO TID 03/03/19 03/03/19 03/02/19 22:00 History ED Physical Exam - General Limitations: No Limitations General appearance: alert, in no apparent distress, obese - Head Head exam: Present: atraumatic, normocephalic - Eye Eye exam: Present: normal appearance. Absent: scleral icterus - ENT ENT exam: Present: mucous membranes moist - Neck Neck exam: Present: normal inspection - Respiratory Respiratory exam: Present: normal lung sounds bilaterally. Absent: respiratory distress - Cardiovascular Cardiovascular Exam: Present: regular rate, normal rhythm. Absent: systolic murmur, diastolic murmur, rubs, gallop - GI/Abdominal GI/Abdominal exam: Present: soft, normal bowel sounds. Absent: distended, tenderness, guarding, rebound, rigid - Rectal Rectal exam: Present: deferred - Extremities Exam Extremities exam: Present: other (mild pretibial edema) - Back Exam Back exam: Present: normal inspection - Neurological Exam Neurological exam: Present: alert, oriented X3, CN II-XII intact. Absent: motor sensory deficit - Psychiatric Psychiatric exam: Present: normal affect, normal mood - Skin Skin exam: Present: warm, dry, intact, normal color. Absent: rash ED Course Vital Signs 03/03/19 03/03/19 03/03/19 04:08 04:09 04:16 Temperature 98.2 F Pulse Rate 99 H 102 H 95 H Respiratory 20 20 Rate Blood Pressure 172/83 172/83 Blood Pressure [Left] O2 Sat by Pulse 97 98 100 Oximetry 03/03/19 03/03/19 03/03/19 04:22 04:30 04:37 Temperature Pulse Rate 90 103 H 110 H Respiratory 18 Rate Blood Pressure 165/91 165/91 150/90 Blood Pressure [Left] O2 Sat by Pulse 98 Oximetry 03/03/19 03/03/19 03/03/19 04:46 05:00 05:01 Temperature Pulse Rate 104 H 93 H 90 Respiratory 24 23 21 Rate Blood Pressure 150/90 150/90 Blood Pressure 137/80 [Left] O2 Sat by Pulse 99 98 99 Oximetry 03/03/19 03/03/19 03/03/19 05:09 05:16 05:30 Temperature Pulse Rate 99 H 99 H 94 H Respiratory 20 26 H Rate Blood Pressure 137/80 137/80 146/86 Blood Pressure [Left] O2 Sat by Pulse 100 96 Oximetry 03/03/19 03/03/19 03/03/19 05:46 06:00 07:33 Temperature 98.4 F Pulse Rate 88 87 85 Respiratory 27 H 23 26 H Rate Blood Pressure 137/80 136/86 Blood Pressure 137/92 [Left] O2 Sat by Pulse 97 96 98 Oximetry 03/03/19 03/03/19 03/03/19 08:07 09:16 09:30 Temperature Pulse Rate 94 H 88 Respiratory 24 24 14 Rate Blood Pressure 151/88 147/67 Blood Pressure [Left] O2 Sat by Pulse 97 95 Oximetry 03/03/19 03/03/19 03/03/19 09:46 10:00 11:00 Temperature Pulse Rate 70 84 87 Respiratory 23 27 H 28 H Rate Blood Pressure 154/82 163/86 169/98 Blood Pressure [Left] O2 Sat by Pulse 97 94 94 Oximetry 03/03/19 13:30 Temperature Pulse Rate 83 Respiratory 22 Rate Blood Pressure Blood Pressure 160/100 [Left] O2 Sat by Pulse 95 Oximetry - Reevaluation(s) Reevaluation #1: Patient was referred to Dr. Manning [id number] evaluation. He is slightly elevated d-dimer. A nuclear perfusion test was normal. 03/03/19 13:41 RADHA score - Radha Score Age > 65: (0) No Aspirin use within the Past 7 Days: (1) Yes 3 or more CAD Risk Factors: (1) Yes 2 or more Angina events in past 24 hrs: (1) Yes Known CAD with more than 50% Stenosis: (0) No Elevated Cardiac Markers: (1) Yes ST Deviation Greater than 0.5mm: (0) No RADHA Score: 4 ED Medical Decision Making - Lab Data Result diagrams: 03/03/19 04:30 03/03/19 04:30 Laboratory Results - last 24 hr 03/03/19 03/03/19 04:30 04:30 WBC 6.6 RBC 5.23 H Hgb 12.0 Hct 38.4 MCV 73 L MCH 23 L MCHC 31 L RDW 18.1 H Plt Count 234 Lymph % (Auto) 27.4 [place] % (Auto) 9.8 H Eos % (Auto) 3.6 Baso % (Auto) 0.6 Lymph # 1.8 [place] # 0.6 Eos # 0.2 Baso # 0.0 Seg Neutrophils % 58.6 Seg Neutrophils # 3.8 Sodium 138 Potassium 3.9 Chloride 102.5 Carbon Dioxide 25 Anion Gap 14 BUN 15 Creatinine 1.9 H Estimated GFR 44 BUN/Creatinine Ratio 8 Glucose 200 H Calcium 8.9 Total Bilirubin 0.30 AST 29 ALT 25 Alkaline Phosphatase 85 Troponin T 0.040 H Total Protein 7.1 Albumin 3.8 L Albumin/Globulin Ratio 1.2 Triglycerides 160 H Cholesterol 87 LDL Cholesterol Direct 45 L HDL Cholesterol 29 L Cholesterol/HDL Ratio 3.00 - EKG Data -: EKG Interpreted by Me EKG shows normal: sinus rhythm, axis (left axis/LAFB), intervals, QRS complexes, ST-T waves Rate: normal - EKG Data When compared to previous EKG there are: no significant change (compared with prehospital EKG. There is no ST elevation.) Interpretation: no acute changes, unchanged when compared t - Radiology Data Radiology results: report reviewed, image reviewed AICD, no acute process Critical care attestation.: If time is entered above; I have spent that time in minutes in the direct care of this critically ill patient, excluding procedure time. ED Disposition Clinical Impression: Atypical chest pain Chronic kidney disease Qualifiers: Chronic kidney disease stage: stage 3 (moderate) Qualified Code(s): N18.3 - Chronic kidney disease, stage 3 (moderate) Hyperglycemia due to type 2 diabetes mellitus Qualifiers: Diabetes mellitus assistant terminal manager insulin use: with fci use Qualified Code(s): E11.65 - Type 2 diabetes mellitus with hyperglycemia; Z79.4 - terminal gauger (current) use of insulin Disposition: -09 OP ADMIT IP TO THIS HOSP Is pt being admited?: Yes Does the pt Need Aspirin: Yes Condition: Stable Instructions: Chest Pain (ED), Diabetes Mellitus Type 2 in Adults (ED) Referrals: PRIMARY CARE, [Referring] - 3-5 Days Time of Disposition: 13:41
[2019-03-03] MEDS ORDERED: HYDROcodone/ACETAMINOPHEN 5-325 MG TAB PO ONE (08:02)
[2019-03-03 08:22] LABS: INR 0.94 (0.87-1.13)
[2019-03-03 08:23] LABS: Partial Thromboplastin Time 28.6 Sec. (24.2-36.6)
--- NOTE | 2019-03-03 12:36 | Nuclear Medicine Report ---
NUCLEAR MEDICINE VENTILATION/PERFUSION LUNG SCAN INDICATION / CLINICAL INFORMATION: Chest pain, elevated dimer. TECHNIQUE: 15.22 mCi of Xe-133 were given by inhalation. 4.42 mCi of Tc-99m MAA were given by IV. COMPARISON: Chest radiograph dated 03/03/2019. FINDINGS: VENTILATION: - Wash-In: Normal. - Equilibrium: Normal. - Washout: Normal. - Air Trapping: None. PERFUSION: No significant perfusion defects. ADDITIONAL FINDINGS: None. IMPRESSION: Normal perfusion scan. The value of the normal perfusion scan is that clinically significant pulmonar y embolism is ruled out with greater than 95% sensitivity. Signer Name: Moo Castaneda MD Signed: 03/03/2019 12:31 PM Workstation Name: [id number]
[2019-03-03] MEDS ORDERED: ASPIRIN 325 MG TAB PO ONE (13:42)
[2019-03-03] MEDS ORDERED: ASPIRIN 81 MG TAB CHEW PO STA (14:39)
[2019-03-03] MEDS ORDERED: ALBUTEROL 2.5 MG/3 ML NEBU IH PRN (14:39)
[2019-03-03] MEDS ORDERED: ACETAMINOPHEN 325 MG TAB PO PRN (14:39)
[2019-03-03] MEDS ORDERED: NITROGLYCERIN 0.4 MG TAB SUBL SL PRN (14:39)
[2019-03-03] MEDS ORDERED: MORPHINE 2 MG/1 ML INJ IV PRN (14:39)
[2019-03-03] MEDS ORDERED: ONDANSETRON 4 MG/2 ML INJ IV PRN (14:39)
[2019-03-03] MEDS ORDERED: FLUTICASONE PROPIONATE 100 MCG IH PRN (14:41)
--- NOTE | 2019-03-03 14:42 | History and Physical Report ---
History of Present Illness Chief complaint: My chest hurts History of present illness: 58 YO Male with CHF, DM, Sick Sinus Syndrome S/P Pacemaker Placement, COPD, HLD, Obesity Hypoventilation Syndrome, chronic Pain, RCC S/P Nephrectomy, Medication Noncompliance, Nicotine Dependence presents to ED for evaluation. Pt states that he has experienced pain in his chest over the past 2 days. Pt states that his pain is 3-10, constant, not worsened with exertion, not relieved with rest, relieved with nitro. EMS notified, and upon arrival the patient was found to be in distress. Pt transported to [facility]. Pt seen and evaluated in ED and found to have Angina. Pt placed in observation status and admitted to medical floor. Pt denies hemoptysis, palpitations, NVD, Trauma, BRBPR, Unilateral leg swelling, calf pain, productive couch, skin rash, or recent ill contacts. Cardiology team consulted in ED. Prior admission on 12/16/18 reviewed. All listed medication reconciled at time of admission. Past History Past Medical History: other (see HPI) Past Surgical History: Other (Pacemaker placement, right Nephrectomy) Social history: single Family history: CAD, diabetes, hypertension Medications and Allergies Allergies Allergy/AdvReac Type Severity Reaction Status Date / Time No Known Allergies Allergy Verified 12/16/18 15:32 Home Medications Medication Instructions Recorded Confirmed Last Taken Type AtorvaSTATin [Lipitor] 40 mg PO QHS #30 tab 12/18/18 03/03/19 03/02/19 22:00 Rx Fluticasone Propionate [Flovent 100 mcg IH BID PRN #1 blst.w.dev 12/18/18 03/03/19 Unknown Rx Diskus] Nitroglycerin [Nitrostat] 0.4 mg SL Q5M PRN #30 tablet 12/18/18 03/03/19 03/03/19 04:37 Rx Sacubitril/Valsartan [Entresto 24 1 tab PO BID #60 tablet 12/18/18 03/03/19 03/02/19 22:00 Rx - 26 mg] amLODIPine 1 tab PO DAILY #30 tablet 12/18/18 03/03/19 03/02/19 10:00 Rx carvediloL [Coreg] 12.5 mg PO BID #60 tab 12/18/18 03/03/19 03/02/19 22:00 Rx Bumetanide 2 mg PO DAILY 03/03/19 03/03/19 03/02/19 22:00 History Potassium Citrate [Potassium 10 meq PO DAILY 03/03/19 03/03/19 03/02/19 10:00 History Citrate ER] Tamsulosin [Flomax] 0.4 mg PO QDAY 03/03/19 03/03/19 03/02/19 22:00 History Torsemide [Demadex] 20 mg PO BID 03/03/19 03/03/19 03/02/19 22:00 History glipiZIDE [Glucotrol] 10 mg PO BID 03/03/19 03/03/19 03/02/19 22:00 History hydrALAZINE [Apresoline TAB] 50 mg PO TID 03/03/19 03/03/19 03/02/19 22:00 History Active Meds: Active Medications Acetaminophen (Tylenol) 650 mg PO Q4H PRN PRN Reason: Pain MILD(1-3)/Fever >100.5/GUZMAN Albuterol (Proventil) 2.5 mg IH Q4HRT PRN PRN Reason: Shortness Of Breath Amlodipine Besylate (Amlodipine) mg PO DAILY [facility] Aspirin (Baby Aspirin) 324 mg PO ONCE STA Stop: 03/03/19 14:40 Atorvastatin Calcium (Lipitor) 40 mg PO QHS [facility] Carvedilol (Coreg) 12.5 mg PO BID [facility] Hydralazine HCl (Apresoline) 50 mg PO TID [facility] Miscellaneous Medication (Bumetanide [Bumetanide]) 2 mg PO DAILY [facility] Miscellaneous Medication (Fluticasone Propionate [Flovent Diskus]) 100 mcg IH BID PRN PRN Reason: YINA Miscellaneous Medication (Potassium Citrate [Potassium Citrate Er]) 10 meq PO DAILY [facility] Miscellaneous Medication (Torsemide [Demadex]) 20 mg PO BID [facility] Morphine Sulfate (Morphine) 2 mg IV Q4H PRN PRN Reason: Pain, Moderate (4-6) Nitroglycerin (Nitrostat) 0.4 mg SL Q5M PRN PRN Reason: Chest Pain Ondansetron HCl (Zofran) 4 mg IV Q8H PRN PRN Reason: Nausea And Vomiting Sodium Chloride (Sodium Chloride Flush Syringe 10 Ml) 10 ml IV BID [facility] Sodium Chloride (Sodium Chloride Flush Syringe 10 Ml) 10 ml IV PRN PRN PRN Reason: LINE FLUSH Sodium Chloride (Sodium Chloride Flush Syringe 10 Ml) 10 ml IV PRN PRN PRN Reason: LINE FLUSH Tamsulosin HCl (Flomax) 0.4 mg PO QDAY [facility] Review of Systems Constitutional: no weight loss, no weight gain, no fever, no chills Ears, nose, mouth and throat: no ear pain, no ear discharge, no tinnitis, no nose pain, no nasal congestion, no sinus pressure Cardiovascular: chest pain, no orthopnea, no palpitations, no rapid/irregular heart beat, no edema, no syncope, no phlebitis Respiratory: no cough, no cough with sputum, no excessive sputum Gastrointestinal: no abdominal pain, no nausea, no vomiting, no constipation, no change in bowel habits, no coffee ground emesis Exam - Constitutional Vitals: Temp Pulse Resp BP Pulse Ox 98.4 F 86 19 147/79 99 03/03/19 07:33 03/03/19 14:00 03/03/19 14:00 03/03/19 14:00 03/03/19 14:00 General appearance: Present: no acute distress, well-nourished - EENT Eyes: Present: PERRL ENT: hearing intact, clear oral mucosa - Neck Neck: Present: supple, normal ROM - Respiratory Respiratory effort: normal Respiratory: bilateral: CTA - Cardiovascular Heart Sounds: Present: S1 & S2. Absent: rub, click - Extremities Extremities: pulses symmetrical, No edema Peripheral Pulses: within normal limits - Abdominal General gastrointestinal: Present: soft, non-tender, non-distended, normal bowel sounds Male genitourinary: Present: normal - Integumentary Integumentary: Present: clear, warm, dry - Musculoskeletal Musculoskeletal: gait normal, strength equal bilaterally - Psychiatric Psychiatric: appropriate mood/affect, intact judgment & insight - Neurologic Neurologic: CNII-XII intact, moves all extremities Results - Labs CBC & Chem 7: 03/03/19 04:30 03/03/19 04:30 Labs: Abnormal lab results 03/03/19 03/03/19 03/03/19 Range/Units 04:30 04:30 07:55 RBC 5.23 H (3.65-5.03) M/mm3 MCV 73 L (84-94) fl MCH 23 L (28-32) pg MCHC 31 L (32-34) % RDW 18.1 H (13.2-15.2) % Turner % (Auto) 9.8 H (0.0-7.3) % D-Dimer 255.72 H (0-234) ng/mlDDU Creatinine 1.9 H (0.8-1.5) mg/dL Glucose 200 H (75-100) mg/dL Troponin T 0.040 H (0.00-0.029) ng/mL Albumin 3.8 L (3.9-5) g/dL Triglycerides 160 H (2-149) mg/dL LDL Cholesterol Direct 45 L (50-130) mg/dL HDL Cholesterol 29 L (40-59) mg/dL Assessment and Plan - Patient Problems (1) Angina at rest Current Visit: Yes Status: Acute Plan to address problem: serial cardiac enzymes, ekg, telemetry, ppi therapy, medication compliance counseling, cardiology consulted in ED, morphine, supplemental oxygen, nitro, aspirin (2) CHF (congestive heart failure) Current Visit: Yes Status: Acute Qualifiers: Heart failure type: systolic Heart failure chronicity: acute on chronic Qualified Code(s): I50.23 - Acute on chronic systolic (congestive) heart failure Plan to address problem: Strict I/O, daily weight, monitor uop q shift, Echo from 10/20 reviewed(EF 40%), supplemental oxygen, pulse oximetry, blood pressure control. (3) Diabetes Current Visit: Yes Status: Acute Plan to address problem: ADA diet, insulin, accu check (4) Sick sinus syndrome Current Visit: Yes Status: Acute Plan to address problem: remote telemetry monitoring, supportive care, continue medical management. (5) Obesity hypoventilation syndrome Current Visit: Yes Status: Acute Plan to address problem: Balanced diet, increased physical activity at discharge, (6) HLD (hyperlipidemia) Current Visit: Yes Status: Acute Qualifiers: Hyperlipidemia type: mixed hyperlipidemia Qualified Code(s): E78.2 - Mixed hyperlipidemia Plan to address problem: Balanced diet, low cholesterol diet, statin therapy,risk factor reduction (7) DVT prophylaxis Current Visit: Yes Status: Acute Plan to address problem: SCD to BLE while in bed,
[2019-03-03 15:17] LABS: Amphetamine Screen,Urine PRESUMPTIVE NEGATIVE; Benzodiazepines Screen,Urine PRESUMPTIVE NEGATIVE; Cannabinoid Screen,Urine PRESUMPTIVE NEGATIVE; Methadone Screen,Urine PRESUMPTIVE NEGATIVE; Opiate Screen,Urine PRESUMPTIVE NEGATIVE
[2019-03-03 15:28] LABS: Cocaine Screen,Urine PRESUMPTIVE POSITIVE
[2019-03-03] MEDS ORDERED: DEXTROSE 50% IN WATER (25GM) 50 ML SYRINGE IV PRN (16:52)
[2019-03-03] MEDS ORDERED: TORSEMIDE 10 MG TAB PO SCH (18:00)
[2019-03-03] MEDS: TORSEMIDE 10 MG TAB PO SCH (18:02)
[2019-03-03] MEDS: INSULIN LISPRO 100 UNIT/ML SUB-Q SCH ×2 (18:02→22:14)
[2019-03-03] MEDS: hydrALAZINE 100 MG TAB PO SCH (20:36)
[2019-03-03] MEDS ORDERED: FLUTICASONE PROPIONATE NASAL SPRAY 16 GM NS PRN (22:00)
[2019-03-03] MEDS ORDERED: NON-FORMULARY EACH (Torsemide [Demadex] 20 MG) PO SCH (22:00)
[2019-03-03] MEDS: TAMSULOSIN 0.4 MG CAP PO SCH (22:13)
[2019-03-03] MEDS: carvediloL 12.5 MG TAB PO SCH (22:15)
[2019-03-03] MEDS: oxyCODONE /ACETAMINOPHEN 5-325MG TAB PO PRN (22:17)
[2019-03-03] MEDS: oxyCODONE 5 MG TAB PO PRN (22:18)
[2019-03-03] MEDS: SACUBITRIL/VALSARTAN 24-26 MG TAB PO SCH (22:23)
[2019-03-04] MEDS: TORSEMIDE 10 MG TAB PO SCH ×2 (05:49→17:16)
[2019-03-04] MEDS: hydrALAZINE 100 MG TAB PO SCH ×3 (08:19→21:45)
[2019-03-04] MEDS: oxyCODONE /ACETAMINOPHEN 5-325MG TAB PO PRN ×2 (08:20→14:52)
[2019-03-04] MEDS: oxyCODONE 5 MG TAB PO PRN ×2 (08:22→14:53)
[2019-03-04] MEDS: INSULIN LISPRO 100 UNIT/ML SUB-Q SCH ×4 (08:23→21:47)
[2019-03-04] MEDS ORDERED: FLUTICASONE PROPIONATE NASAL SPRAY 16 GM NS SCH (10:00)
[2019-03-04] MEDS ORDERED: BUMETANIDE 2 MG PO SCH (10:00)
--- NOTE | 2019-03-04 10:32 | Discharge Summary ---
Providers - Providers Date of Admission: 03/03/19 14:39 Attending physician: JOHNIE DENNIS MD 03/03/19 Consult to Cardiac Rehabilitation [CONS] Routine Reason For Exam: Phase I 03/03/19 16:51 Consult to Physician [CONS] Routine Comment: Consulting Provider: LEIGH MATHEW Physician Instructions: Reason For Exam: angina Hospitalization Condition: Stable Disposition: DC-01 TO HOME OR SELFCARE Time spent for discharge: 33 mins Core Measure Documentation - Palliative Care Palliative Care/ Comfort Measures: Not Applicable - Core Measures Any of the following diagnoses?: none Exam - Constitutional Vitals: Temp Pulse Resp BP Pulse Ox 97.5 F L 78 17 155/86 93 03/04/19 07:45 03/04/19 09:22 03/04/19 09:22 03/04/19 07:45 03/04/19 09:22 General appearance: Present: no acute distress, well-nourished - EENT Eyes: Present: PERRL ENT: hearing intact, clear oral mucosa - Neck Neck: Present: supple, normal ROM - Respiratory Respiratory effort: normal Respiratory: bilateral: CTA - Cardiovascular Heart Sounds: Present: S1 & S2. Absent: rub, click - Extremities Extremities: pulses symmetrical, No edema Peripheral Pulses: within normal limits - Abdominal General gastrointestinal: Present: soft, non-tender, non-distended, normal bowel sounds Male genitourinary: Present: normal - Integumentary Integumentary: Present: clear, warm, dry - Musculoskeletal Musculoskeletal: gait normal, strength equal bilaterally - Psychiatric Psychiatric: appropriate mood/affect, intact judgment & insight - Neurologic Neurologic: CNII-XII intact, moves all extremities Plan Follow up with: PRIMARY CARE, [Referring] - 3-5 Days Prescriptions: Oxycodone HCl/Acetaminophen [Percocet 10/325 mg] 1 each PO Q6HR PRN #60 tablet PRN Reason: Pain
[2019-03-04] MEDS: SACUBITRIL/VALSARTAN 24-26 MG TAB PO SCH ×2 (10:59→21:50)
[2019-03-04] MEDS: BUMETANIDE 1 MG TAB PO SCH (10:59)
[2019-03-04] MEDS: POTASSIUM CHLORIDE ER 10 MEQ TAB PO SCH (10:59)
[2019-03-04] MEDS: carvediloL 12.5 MG TAB PO SCH ×2 (11:00→21:46)
[2019-03-04] MEDS: amLODIPine 10 MG TAB PO SCH (11:00)
[2019-03-04] MEDS: TAMSULOSIN 0.4 MG CAP PO SCH (21:45)
[2019-03-05] MEDS: oxyCODONE /ACETAMINOPHEN 5-325MG TAB PO PRN (02:14)
[2019-03-05] MEDS: TORSEMIDE 10 MG TAB PO SCH (05:18)
[2019-03-05] MEDS: INSULIN LISPRO 100 UNIT/ML SUB-Q SCH (08:00)
[2019-03-05] MEDS: hydrALAZINE 100 MG TAB PO SCH (08:35)
[2019-03-05] MEDS: BUMETANIDE 1 MG TAB PO SCH (09:32)
[2019-03-05] MEDS: POTASSIUM CHLORIDE ER 10 MEQ TAB PO SCH (09:32)
[2019-03-05] MEDS: SACUBITRIL/VALSARTAN 24-26 MG TAB PO SCH (09:32)
[2019-03-05] MEDS: carvediloL 12.5 MG TAB PO SCH (09:35)
[2019-03-05] MEDS: amLODIPine 10 MG TAB PO SCH (09:35)
--- NOTE | 2019-03-05 10:09 | Progress Note ---
Hospitalist Physical - Constitutional Vitals: Temp Pulse Resp BP Pulse Ox 97.5 F L 79 18 153/82 98 03/05/19 08:09 03/05/19 09:35 03/05/19 08:09 03/05/19 09:35 03/05/19 08:09 General appearance: Present: no acute distress, well-nourished Results - Labs CBC & Chem 7: 03/03/19 04:30 03/03/19 04:30 Labs: Laboratory Last Values WBC 6.6 K/mm3 (4.5-11.0) 03/03/19 04:30 RBC 5.23 M/mm3 (3.65-5.03) H 03/03/19 04:30 Hgb 12.0 gm/dl (11.8-15.2) 03/03/19 04:30 Hct 38.4 % (35.5-45.6) 03/03/19 04:30 MCV 73 fl (84-94) L 03/03/19 04:30 MCH 23 pg (28-32) L 03/03/19 04:30 MCHC 31 % (32-34) L 03/03/19 04:30 RDW 18.1 % (13.2-15.2) H 03/03/19 04:30 Plt Count 234 K/mm3 (140-440) 03/03/19 04:30 Lymph % (Auto) 27.4 % (13.4-35.0) 03/03/19 04:30 [place] % (Auto) 9.8 % (0.0-7.3) H 03/03/19 04:30 Eos % (Auto) 3.6 % (0.0-4.3) 03/03/19 04:30 Baso % (Auto) 0.6 % (0.0-1.8) 03/03/19 04:30 Lymph # 1.8 K/mm3 (1.2-5.4) 03/03/19 04:30 [place] # 0.6 K/mm3 (0.0-0.8) 03/03/19 04:30 Eos # 0.2 K/mm3 (0.0-0.4) 03/03/19 04:30 Baso # 0.0 K/mm3 (0.0-0.1) 03/03/19 04:30 Seg Neutrophils % 58.6 % (40.0-70.0) 03/03/19 04:30 Seg Neutrophils # 3.8 K/mm3 (1.8-7.7) 03/03/19 04:30 PT 12.5 Sec. (12.2-14.9) 03/03/19 07:55 INR 0.94 (0.87-1.13) 03/03/19 07:55 APTT 28.6 Sec. (24.2-36.6) 03/03/19 07:55 D-Dimer 255.72 ng/mlDDU (0-234) H 03/03/19 07:55 Sodium 138 mmol/L (137-145) 03/03/19 04:30 Potassium 3.9 mmol/L (3.6-5.0) 03/03/19 04:30 Chloride 102.5 mmol/L (98-107) 03/03/19 04:30 Carbon Dioxide 25 mmol/L (22-30) 03/03/19 04:30 Anion Gap 14 mmol/L 03/03/19 04:30 BUN 15 mg/dL (9-20) 03/03/19 04:30 Creatinine 1.9 mg/dL (0.8-1.5) H 03/03/19 04:30 Estimated GFR 44 ml/min 03/03/19 04:30 BUN/Creatinine Ratio 8 % 03/03/19 04:30 Glucose 200 mg/dL (75-100) H 03/03/19 04:30 POC Glucose 126 (70-105) H 03/05/19 08:21 Calcium 8.9 mg/dL (8.4-10.2) 03/03/19 04:30 Total Bilirubin 0.30 mg/dL (0.1-1.2) 03/03/19 04:30 AST 29 units/L (5-40) 03/03/19 04:30 ALT 25 units/L (7-56) 03/03/19 04:30 Alkaline Phosphatase 85 units/L (35-129) 03/03/19 04:30 Troponin T 0.032 ng/mL (0.00-0.029) H 03/03/19 21:30 NT-Pro-B Natriuret Pep 148.9 pg/mL (0-900) 03/03/19 04:30 Total Protein 7.1 g/dL (6.3-8.2) 03/03/19 04:30 Albumin 3.8 g/dL (3.9-5) L 03/03/19 04:30 Albumin/Globulin Ratio 1.2 % 03/03/19 04:30 Triglycerides 160 mg/dL (2-149) H 03/03/19 04:30 Cholesterol 87 mg/dL (50-199) 03/03/19 04:30 LDL Cholesterol Direct 45 mg/dL (50-130) L 03/03/19 04:30 HDL Cholesterol 29 mg/dL (40-59) L 03/03/19 04:30 Cholesterol/HDL Ratio 3.00 % 03/03/19 04:30 Urine Opiates Screen Presumptive negative 03/03/19 15:00 Urine Methadone Screen Presumptive negative 03/03/19 15:00 Ur Barbiturates Screen Presumptive negative 03/03/19 15:00 Ur Phencyclidine Scrn Presumptive negative 03/03/19 15:00 Ur Amphetamines Screen Presumptive negative 03/03/19 15:00 U Benzodiazepines Scrn Presumptive negative 03/03/19 15:00 Urine Cocaine Screen Presumptive positive 03/03/19 15:00 U Marijuana (THC) Screen Presumptive negative 03/03/19 15:00 Drugs of Abuse Note Disclamer 03/03/19 15:00 Active Medications - Current Medications Current Medications: Generic Name Dose Route Start Last Admin Trade Name Freq PRN Reason Stop Dose Admin Acetaminophen 650 mg 03/03/19 14:39 Tylenol PO Q4H PRN Pain MILD(1-3)/Fever >100.5/GUZMAN Albuterol 2.5 mg 03/03/19 14:39 Proventil IH Q4HRT PRN Shortness Of Breath Amlodipine Besylate 10 mg 03/04/19 10:00 03/05/19 09:35 Amlodipine PO 10 mg DAILY [facility] Administration Atorvastatin Calcium 40 mg 03/03/19 22:00 03/04/19 21:46 Lipitor PO 40 mg QHS [facility] Administration Bumetanide 2 mg 03/04/19 10:00 03/05/19 09:32 Bumex PO 2 mg QDAY [facility] Administration Carvedilol 12.5 mg 03/03/19 22:00 03/05/19 09:35 Coreg PO 12.5 mg BID [facility] Administration Dextrose 50 ml 03/03/19 16:52 D50w (25gm) Syringe IV Q30MIN PRN Hypoglycemia Protocol Fluticasone Propionate 50 mcg 03/03/19 22:00 Flonase NS BID PRN NAGAL CONGESTION, RHINITIS Hydralazine HCl 50 mg 03/03/19 20:00 03/05/19 08:35 Apresoline PO 50 mg TID [facility]I Administration Insulin Human Lispro 0 unit 03/03/19 17:00 03/05/19 08:00 Humalog SUB-Q Not Given ACHS [facility] Protocol Morphine Sulfate 2 mg 03/03/19 14:39 Morphine IV Q4H PRN Pain, Moderate (4-6) Nitroglycerin 0.4 mg 03/03/19 14:39 Nitrostat SL Q5M PRN Chest Pain Ondansetron HCl 4 mg 03/03/19 14:39 03/04/19 18:36 Zofran IV 4 mg Q8H PRN Administration Nausea And Vomiting Oxycodone HCl 5 mg 03/03/19 21:03 03/04/19 14:53 Roxicodone PO 5 mg Q6H PRN Administration Pain, Moderate (4-6) Oxycodone/Acetaminophen 1 tab 03/03/19 21:00 03/05/19 02:14 Percocet 5/325 PO 1 tab Q6H PRN Administration Pain, Moderate (4-6) Potassium Chloride 10 meq 03/04/19 10:00 03/05/19 09:32 K-Dur PO 10 meq DAILY [facility] Administration Sodium Chloride 10 ml 03/03/19 22:00 03/05/19 09:33 Sodium Chloride Flush Syringe 10 Ml IV 10 ml BID [facility] Administration Sodium Chloride 10 ml 03/03/19 14:39 Sodium Chloride Flush Syringe 10 Ml IV PRN PRN LINE FLUSH Tamsulosin HCl 0.4 mg 03/03/19 22:00 03/04/19 21:45 Flomax PO 0.4 mg QHS [facility] Administration Torsemide 20 mg 03/03/19 18:00 03/05/19 05:18 Demadex PO 20 mg BID@0600,1800 [facility] Administration
[2019-03-05 11:46] VITALS: BP 132/88
--- NOTE | 2019-03-05 13:50 | Consultation ---
History of Present Illness Consult date: 03/05/19 Consult reason: chest pain History of present illness: This is a 58-year old male with a known history of non-ischemic cardiomyopathy and has a indwelling cardiac defibrillator. His latest cardiac workup was done at this hospital 4 months ago. He had an improved ejection fraction 45% by echocardiogram and a negative stress thallium test. Co-morbidities includes chronic kidney disease, morbid obesity, obstructive sleep apnea, and polysubstance abuse. He is now admitted with atypical chest pain and shortness of breath. There is no lower extremity edema. Patient admits compliance with medications. Chest x-ray is negative and a ventilation perfusion scan reports no evidence of pulmonary embolism. Cardiac troponins are mildly elevated in the setting of renal disease. Creatinine at 1.9. His initial ECG is sinus rhythm, LAFB and LVH. A cardiac consultation has been requested for chest pain evaluation. Past History Past Medical History: other (see HPI) Past Surgical History: Other (Pacemaker placement, right Nephrectomy) Social history: single Family history: CAD, diabetes, hypertension Medications and Allergies Allergies Allergy/AdvReac Type Severity Reaction Status Date / Time No Known Allergies Allergy Verified 12/16/18 15:32 Home Medications Medication Instructions Recorded Confirmed Last Taken Type AtorvaSTATin [Lipitor] 40 mg PO QHS #30 tab 12/18/18 03/03/19 03/02/19 22:00 Rx Fluticasone Propionate [Flovent 100 mcg IH BID PRN #1 blst.w.dev 12/18/18 03/03/19 Unknown Rx Diskus] Nitroglycerin [Nitrostat] 0.4 mg SL Q5M PRN #30 tablet 12/18/18 03/03/19 03/03/19 04:37 Rx Sacubitril/Valsartan [Entresto 24 1 tab PO BID #60 tablet 12/18/18 03/03/19 03/02/19 22:00 Rx - 26 mg] amLODIPine 1 tab PO DAILY #30 tablet 12/18/18 03/03/19 03/02/19 10:00 Rx carvediloL [Coreg] 12.5 mg PO BID #60 tab 12/18/18 03/03/19 03/02/19 22:00 Rx Bumetanide 2 mg PO DAILY 03/03/19 03/03/19 03/02/19 22:00 History Percocet 10/325 mg 10 mg PO Q6HR PRN 03/03/19 03/03/19 03/02/19 08:30 History Potassium Citrate [Potassium 10 meq PO DAILY 03/03/19 03/03/19 03/02/19 10:00 History Citrate ER] Tamsulosin [Flomax] 0.4 mg PO QDAY 03/03/19 03/03/19 03/02/19 22:00 History glipiZIDE [Glucotrol] 10 mg PO BID 03/03/19 03/03/19 03/02/19 22:00 History hydrALAZINE [Apresoline TAB] 50 mg PO TID 03/03/19 03/03/19 03/02/19 22:00 History Oxycodone HCl/Acetaminophen 1 each PO Q6HR PRN #60 tablet 03/04/19 Unknown Rx [Percocet 10/325 mg] Bumetanide [Bumex 1 mg tab] 2 mg PO DAILY #60 tab 03/05/19 Unknown Rx Bumetanide [Bumex 1 mg tab] 2 mg PO QDAY #60 tablet 03/05/19 Unknown Rx Active Meds: Active Medications Acetaminophen (Tylenol) 650 mg PO Q4H PRN PRN Reason: Pain MILD(1-3)/Fever >100.5/GUZMAN Albuterol (Proventil) 2.5 mg IH Q4HRT PRN PRN Reason: Shortness Of Breath Amlodipine Besylate (Amlodipine) 10 mg PO DAILY [facility] Last Admin: 03/05/19 09:35 Dose: 10 mg Documented by: Atorvastatin Calcium (Lipitor) 40 mg PO QHS [facility] Last Admin: 03/04/19 21:46 Dose: 40 mg Documented by: Bumetanide (Bumex) 2 mg PO QDAY [facility] Last Admin: 03/05/19 09:32 Dose: 2 mg Documented by: Carvedilol (Coreg) 12.5 mg PO BID [facility] Last Admin: 03/05/19 09:35 Dose: 12.5 mg Documented by: Dextrose (D50w (25gm) Syringe) 50 ml IV Q30MIN PRN; Protocol PRN Reason: Hypoglycemia Fluticasone Propionate (Flonase) 50 mcg NS BID PRN PRN Reason: NAGAL CONGESTION, RHINITIS Hydralazine HCl (Apresoline) 50 mg PO TID [facility] Last Admin: 03/05/19 08:35 Dose: 50 mg Documented by: Insulin Human Lispro (Humalog) 0 unit SUB-Q ACHS [facility]; Protocol Last Admin: 03/05/19 08:00 Dose: Not Given Documented by: Morphine Sulfate (Morphine) 2 mg IV Q4H PRN PRN Reason: Pain, Moderate (4-6) Nitroglycerin (Nitrostat) 0.4 mg SL Q5M PRN PRN Reason: Chest Pain Ondansetron HCl (Zofran) 4 mg IV Q8H PRN PRN Reason: Nausea And Vomiting Last Admin: 03/04/19 18:36 Dose: 4 mg Documented by: Oxycodone HCl (Roxicodone) 5 mg PO Q6H PRN PRN Reason: Pain, Moderate (4-6) Last Admin: 03/04/19 14:53 Dose: 5 mg Documented by: Oxycodone/Acetaminophen (Percocet 5/325) 1 tab PO Q6H PRN PRN Reason: Pain, Moderate (4-6) Last Admin: 03/05/19 02:14 Dose: 1 tab Documented by: Potassium Chloride (K-Dur) 10 meq PO DAILY [facility] Last Admin: 03/05/19 09:32 Dose: 10 meq Documented by: Sodium Chloride (Sodium Chloride Flush Syringe 10 Ml) 10 ml IV BID [facility] Last Admin: 03/05/19 09:33 Dose: 10 ml Documented by: Sodium Chloride (Sodium Chloride Flush Syringe 10 Ml) 10 ml IV PRN PRN PRN Reason: LINE FLUSH Tamsulosin HCl (Flomax) 0.4 mg PO QHS [facility] Last Admin: 03/04/19 21:45 Dose: 0.4 mg Documented by: Torsemide (Demadex) 20 mg PO BID@0600,1800 [facility] Last Admin: 03/05/19 05:18 Dose: 20 mg Documented by: Physical Examination Vital Signs Pulse Pulse Ox 99 H 97 03/03/19 04:08 03/03/19 04:08 General appearance: no acute distress, obese HEENT: Positive: PERRL Neck: Positive: trachea midline Cardiac: Positive: Reg Rate and Rhythm Lungs: Positive: Decreased Breath Sounds Neuro: Positive: Grossly Intact Extremities: Absent: edema Results 03/03/19 04:30 03/03/19 04:30
== END 2019-03-05 14:01 | disposition home or self-care (01) ==
LOC: ED 04:06 → 4A 14:39
PROVIDERS: ADMIT Internal Medicine; ATTEND Internal Medicine
DX: R07.89 Other chest pain (principal); I20.8 Other forms of angina pectoris; I13.0 Hypertensive heart and chronic kidney disease with heart failure and stage 1 through stage 4 chronic kidney disease, or unspecified chronic kidney disease; I50.9 Heart failure, unspecified; N18.3 Chronic kidney disease, stage 3 (moderate); E11.22 Type 2 diabetes mellitus with diabetic chronic kidney disease; I49.5 Sick sinus syndrome; E66.2 Morbid (severe) obesity with alveolar hypoventilation; E78.5 Hyperlipidemia, unspecified; M19.90 Unspecified osteoarthritis, unspecified site; J44.9 Chronic obstructive pulmonary disease, unspecified; F17.200 Nicotine dependence, unspecified, uncomplicated; Z68.41 Body mass index [BMI] 40.0-44.9, adult; Z91.14 Patient's other noncompliance with medication regimen; Z79.82 Long term (current) use of aspirin; Z95.0 Presence of cardiac pacemaker
CPT/HCPCS: 36415; 71045; 78582; 80053; 80061; 80307; 82962; 83880; 84484; 85025; 85379; 85610; 85730; 87116; 93005; 93010; 94660; 96372; 96374; 99284; 99406; A9270; A9540; A9558; G0378; J2405; J3246; J1815

== ENCOUNTER 2020-01-12 04:34 | Observation (INO) | payer OTHER, MEDICARE ==
[2020-01-12] MEDS ORDERED: ASPIRIN 325 MG TAB PO ONE (04:54)
[2020-01-12 05:19] LABS: Basophils % (Auto) 0.4 % (0.0-1.8); Eosinophils # (Auto) 0.2 K/mm3 (0.0-0.4); Eosinophils % (Auto) 2.2 % (0.0-4.3); Hematocrit 36.5 % (35.5-45.6); Hemoglobin 11.5 gm/dl (11.8-15.2); Lymphocytes # (Auto) 2.1 K/mm3 (1.2-5.4); Lymphocytes % (Auto) 26.4 % (13.4-35.0); Mean Corpuscular HGB Conc 32 % (32-34); Mean Corpuscular Volume 72 fl (84-94); Monocytes # (Auto) 0.8 K/mm3 (0.0-0.8); Monocytes % (Auto) 9.6 % (0.0-7.3); Platelet Count 227 K/mm3 (140-440); Red Blood Count 5.07 M/mm3 (3.65-5.03); Red Cell Distribution Width 17.5 % (13.2-15.2)
--- NOTE | 2020-01-12 05:34 | XRay Report ---
CHEST 1 VIEW INDICATION: Chest Pain. COMPARISON: 03/03/1990 FINDINGS: Support devices: Cardiac lead is unchanged. Heart: Stable. Lungs/Pleura: No acute pulmonary or pleural findings. IMPRESSION: 1. No acute findings. Signer Name: Afshin Escalante MD Signed: 01/12/2020 5:29 AM Workstation Name: [id number]
[2020-01-12 05:37] LABS: Calcium 9.4 mg/dL (8.4-10.2)
[2020-01-12 06:48] LABS: Chol/HDL Ratio 4.03 %
[2020-01-12] MEDS ORDERED: NITROGLYCERIN 0.4 MG TAB SUBL SL PRN ×2 (09:01→09:14)
[2020-01-12] MEDS ORDERED: FUROSEMIDE 40 MG/4 ML INJ IV ONE (09:01)
[2020-01-12] MEDS ORDERED: oxyCODONE /ACETAMINOPHEN 5-325MG TAB PO ONE (09:01)
--- NOTE | 2020-01-12 09:06 | Emergency Department Report ---
ED Chest Pain HPI - General Chief Complaint: Chest Pain Stated Complaint: CP,SOB PUI?: No Time Seen by Provider: 01/12/20 08:41 Source: patient, RN notes reviewed, old records reviewed Mode of arrival: Ambulatory Limitations: Physical Limitation - History of Present Illness Initial Comments: The patient was evaluated in the emergency department for symptoms described in the history of present illness. He/she was evaluated in the context of the global COVID-19 pandemic, which necessitated consideration that the patient might be at risk for infection with the virus that causes COVID-19. Institutional protocols and algorithms that pertain to the evaluation of patients at risk for COVID-19 are in a state of rapid change based on information released by regulatory bodies including the CDC and federal and state organizations. These policies and algorithms were followed during the patient's care in the emergency department. Please note that these policies, procedures and recommendations changed on a rapid basis. The patient is a 59-year-old gentleman. His gate person is Dr. Lainez He has a history of reported nonischemic cardiomyopathy, ejection fraction 30 to 35%, renal insufficiency, ICD in situ, morbid obesity, COPD, diabetes, hypertension, arthritis, "multiple disks", obstructive sleep apnea, compliant wi th CPAP machine, chronic pain The patient presents to the ER with 4 days of intermittent chest pressure and pain, which is nonradiating, worsens with physical exertion, decreases with rest and nitroglycerin, does not radiate to the back, arms or neck, without vomiting, diaphoresis, positive exertional shortness of breath, cough, shortness of breath, wheezing, orthopnea. Patient denies headache, neck pain, abdominal pain, hematemesis, bright red blood per rectum, travel, surgery, immobilization. He complains of chronic paralumbar nontraumatic back pain, "its my discs" and requests Percocet for his back pain. He has not taken any erectile dysfunction medications that he can recall. He had a negative nuclear stress test in 2019 at this hospital, and also had a low probability nuclear medicine study for pulmonary embolism at this hospital in 2019. He does admit to some dietary indiscretions, and admits to eating some salty chips, and also ran out of his entresto a few days ago. No COVID exposure or loss of taste or smell that he is aware of MD Complaint: chest pain -: Gradual, days(s) Onset: during rest Pain Location: substernal, epigastric Pain Radiation: none Severity scale (0 -10): 1 Quality: aching Consistency: intermittent Improves With: nitroglycerin, rest Worsens With: exertion, movement Other Symptoms: cough Treatments Prior to Arrival: aspirin, nitroglycerin Aspirin use within the Past 7 Days: (1) Yes - Related Data On Oral Contraceptives: No Home Medications Medication Instructions Recorded Confirmed Last Taken Bumetanide 2 mg PO DAILY 03/03/19 03/03/19 03/02/19 22:00 Percocet 10/325 mg 10 mg PO Q6HR PRN 03/03/19 03/03/19 03/02/19 08:30 Potassium Citrate [Potassium 10 meq PO DAILY 03/03/19 03/03/19 03/02/19 10:00 Citrate ER] Tamsulosin [Flomax] 0.4 mg PO QDAY 03/03/19 03/03/19 03/02/19 22:00 glipiZIDE [Glucotrol] 10 mg PO BID 03/03/19 03/03/19 03/02/19 22:00 hydrALAZINE [Apresoline TAB] 50 mg PO TID 03/03/19 03/03/19 03/02/19 22:00 Previous Rx's Medication Instructions Recorded Last Taken Type AtorvaSTATin [Lipitor] 40 mg PO QHS #30 tab 12/18/18 03/02/19 22:00 Rx Fluticasone Propionate [Flovent 100 mcg IH BID PRN #1 blst.w.dev 12/18/18 Unknown Rx Diskus] Nitroglycerin [Nitrostat] 0.4 mg SL Q5M PRN #30 tablet 12/18/18 03/03/19 04:37 Rx Sacubitril/Valsartan [Entresto 24 1 tab PO BID #60 tablet 12/18/18 03/02/19 22:00 Rx - 26 mg] amLODIPine 1 tab PO DAILY #30 tablet 12/18/18 03/02/19 10:00 Rx carvediloL [Coreg] 12.5 mg PO BID #60 tab 12/18/18 03/02/19 22:00 Rx Oxycodone HCl/Acetaminophen 1 each PO Q6HR PRN #60 tablet 03/04/19 Unknown Rx [Percocet 10/325 mg] Bumetanide [Bumex 1 mg tab] 2 mg PO DAILY #60 tab 03/05/19 Unknown Rx Bumetanide [Bumex 1 mg tab] 2 mg PO QDAY #60 tablet 03/05/19 Unknown Rx Allergies Allergy/AdvReac Type Severity Reaction Status Date / Time No Known Allergies Allergy Verified 12/16/18 15:32 Heart Score - HEART Score History: Moderately suspicious EKG: Non-specific Age: 45-65 Risk factors: > 3 risk factors or hx of atherosclerotic disease Troponin: 1-3x normal limit HEART Score: 6 - Critical Actions Critical Actions: 4-6 pts:12-16.6% risk of adverse cardiac event. Should be admitted ED Review of Systems ROS: Stated complaint: CP,SOB Other details as noted in HPI Constitutional: denies: diaphoresis, fever Eyes: denies: eye discharge ENT: congestion Respiratory: cough, orthopnea, shortness of breath, SOB with exertion, SOB at rest Cardiovascular: chest pain, dyspnea on exertion, orthopnea. denies: palpitations Gastrointestinal: denies: abdominal pain, nausea, vomiting, hematemesis, melena, hematochezia Genitourinary: denies: dysuria Musculoskeletal: back pain Skin: denies: lesions Neurological: denies: weakness Psychiatric: as per HPI ED Past Medical Hx - Past Medical History Previous Medical History?: Yes Hx Hypertension: Yes Hx Heart Attack/AMI: Yes Hx Congestive Heart Failure: Yes Hx Diabetes: Yes Hx Renal Disease: Yes Hx Arthritis: Yes Hx Asthma: No Hx COPD: Yes Hx HIV: No Additional medical history: Sleep apnea and uses CPAP machine throught night and day as needed. 3 ruptured disc in back - Surgical History Past Surgical History?: Yes Hx Open Heart Surgery: Yes Hx Pacemaker: Yes Hx Internal Defibrillator: Yes Additional Surgical History: pacemaker, right kidney removed - Social History Smoking Status: Current Every Day Smoker Substance Use Type: None - Medications Home Medications: Home Medications Medication Instructions Recorded Confirmed Last Taken Type AtorvaSTATin [Lipitor] 40 mg PO QHS #30 tab 12/18/18 03/03/19 03/02/19 22:00 Rx Fluticasone Propionate [Flovent 100 mcg IH BID PRN #1 blst.w.dev 12/18/18 03/03/19 Unknown Rx Diskus] Nitroglycerin [Nitrostat] 0.4 mg SL Q5M PRN #30 tablet 12/18/18 03/03/19 03/03/19 04:37 Rx Sacubitril/Valsartan [Entresto 24 1 tab PO BID #60 tablet 12/18/18 03/03/19 03/02/19 22:00 Rx - 26 mg] amLODIPine 1 tab PO DAILY #30 tablet 12/18/18 03/03/19 03/02/19 10:00 Rx carvediloL [Coreg] 12.5 mg PO BID #60 tab 12/18/18 03/03/19 03/02/19 22:00 Rx Bumetanide 2 mg PO DAILY 03/03/19 03/03/19 03/02/19 22:00 History Percocet 10/325 mg 10 mg PO Q6HR PRN 03/03/19 03/03/19 03/02/19 08:30 History Potassium Citrate [Potassium 10 meq PO DAILY 03/03/19 03/03/19 03/02/19 10:00 History Citrate ER] Tamsulosin [Flomax] 0.4 mg PO QDAY 03/03/19 03/03/19 03/02/19 22:00 History glipiZIDE [Glucotrol] 10 mg PO BID 03/03/19 03/03/19 03/02/19 22:00 History hydrALAZINE [Apresoline TAB] 50 mg PO TID 03/03/19 03/03/19 03/02/19 22:00 History Oxycodone HCl/Acetaminophen 1 each PO Q6HR PRN #60 tablet 03/04/19 Unknown Rx [Percocet 10/325 mg] Bumetanide [Bumex 1 mg tab] 2 mg PO DAILY #60 tab 03/05/19 Unknown Rx Bumetanide [Bumex 1 mg tab] 2 mg PO QDAY #60 tablet 03/05/19 Unknown Rx ED Physical Exam - General Limitations: Physical Limitation General appearance: alert, anxious, in distress, obese - Head Head exam: Present: atraumatic, normocephalic - Eye Eye exam: Present: normal appearance, EOMI. Absent: nystagmus - ENT ENT exam: Present: normal exam, normal orophraynx, mucous membranes moist - Neck Neck exam: Present: normal inspection, full ROM, other (5 to 6 cm of jugular venous distention noted bilateral). Absent: tenderness, meningismus - Respiratory Respiratory exam: Present: respiratory distress, rales, accessory muscle use. Absent: wheezes, rhonchi, stridor - Cardiovascular Cardiovascular Exam: Present: regular rate, normal rhythm, tachycardia, normal heart sounds, JVD. Absent: systolic murmur, diastolic murmur, rubs, gallop - GI/Abdominal GI/Abdominal exam: Present: soft. Absent: distended, tenderness, guarding, rebound, rigid, pulsatile mass - Rectal Rectal exam: Present: deferred - Extremities Exam Extremities exam: Present: normal inspection, full ROM, pedal edema, other (2+ pulses noted in the bilateral upper and lower extremities. There is no palpable cord. negative Homans sign. Muscular compartments are soft. The pelvis is stable.). Absent: calf tenderness - Back Exam Back exam: Present: normal inspection, full ROM. Absent: tenderness, CVA tenderness (R), CVA tenderness (L), muscle spasm, paraspinal tenderness, vertebral tenderness - Neurological Exam Neurological exam: Present: alert, other (No facial droop. Tongue midline. Extraocular movements intact bilaterally. Facial sensation intact to light touch in V1, V2, V3 distribution bilaterally. 5 and a 5 strength in 4 extremities. Sensation intact to light touch in 4 extremities.). Absent: motor sensory deficit - Psychiatric Psychiatric exam: Present: anxious - Skin Skin exam: Present: warm, dry, intact, normal color. Absent: rash ED Course Vital Signs 01/12/20 04:55 Temperature 98.2 F Pulse Rate 106 H Respiratory 20 Rate Blood Pressure 180/92 O2 Sat by Pulse 93 Oximetry RADHA score - Radha Score Age > 65: (0) No Aspirin use within the Past 7 Days: (1) Yes 3 or more CAD Risk Factors: (1) Yes 2 or more Angina events in past 24 hrs: (1) Yes Known CAD with more than 50% Stenosis: (0) No Elevated Cardiac Markers: (1) Yes ST Deviation Greater than 0.5mm: (0) No RADHA Score: 4 ED Medical Decision Making - Lab Data Result diagrams: 01/12/20 04:55 01/12/20 04:55 Vital Signs 01/12/20 04:55 Temperature 98.2 F Pulse Rate 106 H Respiratory 20 Rate Blood Pressure 180/92 O2 Sat by Pulse 93 Oximetry Lab Results 01/12/20 01/12/20 01/12/20 Range/Units 04:55 04:55 07:59 WBC 7.9 (4.5-11.0) K/mm3 RBC 5.07 H (3.65-5.03) M/mm3 Hgb 11.5 L (11.8-15.2) gm/dl Hct 36.5 (35.5-45.6) % MCV 72 L (84-94) fl MCH 23 L (28-32) pg MCHC 32 (32-34) % RDW 17.5 H (13.2-15.2) % Plt Count 227 (140-440) K/mm3 Lymph % (Auto) 26.4 (13.4-35.0) % Bacon % (Auto) 9.6 H (0.0-7.3) % Eos % (Auto) 2.2 (0.0-4.3) % Baso % (Auto) 0.4 (0.0-1.8) % Lymph # (Auto) 2.1 (1.2-5.4) K/mm3 Bacon # (Auto) 0.8 (0.0-0.8) K/mm3 Eos # (Auto) 0.2 (0.0-0.4) K/mm3 Baso # (Auto) 0.0 (0.0-0.1) K/mm3 Seg Neutrophils % 61.4 (40.0-70.0) % Seg Neutrophils # 4.9 (1.8-7.7) K/mm3 Sodium 139 (137-145) mmol/L Potassium 3.5 L (3.6-5.0) mmol/L Chloride 95.8 L (98-107) mmol/L Carbon Dioxide 23 (22-30) mmol/L Anion Gap 24 mmol/L BUN 37 H (9-20) mg/dL Creatinine 2.3 H (0.8-1.3) mg/dL Estimated GFR 35 ml/min BUN/Creatinine Ratio 16 % Glucose 137 H (75-100) mg/dL Calcium 9.4 (8.4-10.2) mg/dL Troponin T 0.069 H 0.056 H (0.00-0.029) ng/mL Triglycerides 320 H (2-149) mg/dL Cholesterol 105 (50-199) mg/dL LDL Cholesterol Direct 35 L (50-130) mg/dL HDL Cholesterol 26 L (40-59) mg/dL Cholesterol/HDL Ratio 4.03 % - EKG Data -: EKG Interpreted by Me - EKG Data 01/12/20 09:08 The EKG today shows a sinus rhythm, premature atrial contractions, 105 bpm, there is a left axis deviation, there is a left anterior fascicular block, there is poor R wave progression, the QTC is prolonged, the EKG is abnormal. The EKG is not a STEMI. Fairly unchanged when compared to prior EKG from 03/2019, with the exception of premature atrial contractions, and prolonged QTC. - Radiology Data Radiology results: report reviewed, image reviewed interpreted by me: X-ray of the chest interpreted by myself, ICD in situ, pulmonary vascular congestion/cephalization/CHF, no obvious pneumothorax. Bony anatomy appears to be unremarkable X-ray of the chest is interpreted as negative for acute findings CHEST 1 VIEW INDICATION: Chest Pain. COMPARISON: 03/03/1990 FINDINGS: Support devices: Cardiac lead is unchanged. Heart: Stable. Lungs/Pleura: No acute pulmonary or pleural findings. IMPRESSION: 1. No acute findings. Signer Name: Afshin Escalante MD Signed: 01/12/2020 4:29 AM Workstation Name: [employer]- [id number] - Medical Decision Making Differential diagnosis, including but not limited to: Costochondritis, acute coronary syndrome, GERD, gastritis, hiatal hernia, right-sided heart failure, pulmonary hypertension, obstructive sleep apnea, cardiorenal syndrome Assessment and plan: 59-year-old gentleman who is hypoxic, hypertensive, orthopneic, with JVD, crackles, rales, x-ray of the chest to my interpretation appears to be consistent with congestive heart failure, who is likely presenting with right-sided congestive heart failure, likely secondary to multiple medical comorbidities, as well as running out of his medication, and dietary indiscretion. Patient does meet criteria for hospitalization secondary to the aforementioned. He reports no DVT and pulmonary embolism risk factors, and I find him to be low risk by Wells criteria. We will give high-dose Lasix, Percocet for his chronic back pain, administer supplemental oxygen, and admit the patient to the medical service. I have discussed this plan of care with the patient, who verbalized understanding, and is amenable to this plan of care. Troponin leak chronically elevated, this is likely a type II troponin leak, likely secondary to the patient's chronic medical issues. Hospital physician, Dr. Healy to admit Patient did have a cardiac stress test at this hospital in 2019 which is negative for ischemic findings, he was seen in consultation by cardiology, who also felt that ischemic heart disease was very unlikely. Indication for admission at this time is acutely decompensated congestive heart failure, cardiorenal syndrome Critical Care Time: Yes Critical care time in (mins) excluding proc time.: 35 Critical care attestation.: If time is entered above; I have spent that time in minutes in the direct care of this critically ill patient, excluding procedure time. ED Disposition Clinical Impression: Acute on chronic systolic heart failure, Shortness of breath, Chest pain, Hypertension, CKD (chronic kidney disease) Disposition: OP ADMIT IP TO THIS HOSP Is pt being admited?: Yes Does the pt Need Aspirin: No Condition: Serious Instructions: Chest Pain (ED), Hypertension (ED) Referrals: PRIMARY CARE, [Primary Care Provider] - 3-5 Days
[2020-01-12] MEDS ORDERED: hydrALAZINE 25 MG TAB PO ONE (09:12)
[2020-01-12] MEDS ORDERED: FLUTICASONE PROPIONATE 100 MCG IH PRN (09:14)
[2020-01-12] MEDS ORDERED: FUROSEMIDE 20 MG/2 ML INJ ONE (09:33)
[2020-01-12] MEDS ORDERED: ALBUTEROL 2.5 MG/3 ML NEBU IH PRN (10:07)
[2020-01-12] MEDS ORDERED: DEXTROSE 50% IN WATER (25GM) 50 ML SYRINGE IV PRN (10:16)
[2020-01-12 10:17] LABS: INR 0.95 (0.87-1.13)
--- NOTE | 2020-01-12 10:22 | History and Physical Report ---
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 Pain is pressure-like, 6 out of 10 intensity, with no radiation, no alleviating or aggravating factors identified. Patient is also complaining of orthopnea, dyspnea worsened with exertion, and worsening of leg swelling. Patient is complaining chronic low back pain. Patient is complaining cough which is productive of white sputum but denied any fever, chills. Patient said he has been taking his medications as ordered and no change in his diet. Patient is active tobacco smoker. Work-up in the emergency department showed that patient is in CHF exacerbation, NSTEMI with elevated troponin, acute on chronic renal failure. Patient was given Lasix and requested to admit this patient. REVIEW OF SYSTEMS: GENERAL: no weight change, no fatigue, no fever HEAD: no head ache EYES: no blurry vision, no acute visual loss EARS: no hearing loss, no discharge, no earache NOSE: no stuffiness, no sneezing, no discharge MOUTH, THROAT AND NECK: no bleeding gums, no sore throat, no swollen neck CARDIAC: As stated in HPI. RESPIRATORY: As stated in HPI GI: no decreased appetite, no nausea, no vomiting, no dysphagia, no diarrhea, no constipation, no abdominal pain URINARY: No urgency, hematuria, dysuria or frequency. MUSCULOSKELETAL: no muscle weakness, no pain, no joint stiffness NEUROLOGIC: no loss of sensation/numbness, no tingling, no tremors, no weakness/paralysis HEMATOLOGIC: no anemia, no easy bruising SKIN: no rashes ENDOCRINE: no heat/cold intolerance, no polyuria, no polydipsia, no thyroid problems, no diabetes PSYCHIATRIC: no anxiety, no depression, no suicidal ideations Past History Past Medical History: COPD, diabetes, heart failure, hypertension, hyperlipidemia, renal failure Past Surgical History: Other (Right nephrectomy) Social history: smoking (Half pack per day, last smoking was 4 days ago), full code. denies: alcohol abuse, prescription drug abuse, IV drug use Family history: CAD (Mother), other (Sister and mother has kidney disease) Medications and Allergies Allergies Allergy/AdvReac Type Severity Reaction Status Date / Time No Known Allergies Allergy Verified 12/16/18 15:32 Home Medications Medication Instructions Recorded Confirmed Last Taken Type AtorvaSTATin [Lipitor] 40 mg PO QHS #30 tab 12/18/18 03/03/19 03/02/19 22:00 Rx Fluticasone Propionate [Flovent 100 mcg IH BID PRN #1 blst.w.dev 12/18/18 03/03/19 Unknown Rx Diskus] Nitroglycerin [Nitrostat] 0.4 mg SL Q5M PRN #30 tablet 12/18/18 03/03/19 03/03/19 04:37 Rx Sacubitril/Valsartan [Entresto 24 1 tab PO BID #60 tablet 12/18/18 03/03/19 03/02/19 22:00 Rx - 26 mg] amLODIPine 1 tab PO DAILY #30 tablet 12/18/18 03/03/19 03/02/19 10:00 Rx carvediloL [Coreg] 12.5 mg PO BID #60 tab 12/18/18 03/03/19 03/02/19 22:00 Rx Bumetanide 2 mg PO DAILY 03/03/19 03/03/19 03/02/19 22:00 History Percocet 10/325 mg 10 mg PO Q6HR PRN 03/03/19 03/03/19 03/02/19 08:30 History Potassium Citrate [Potassium 10 meq PO DAILY 03/03/19 03/03/19 03/02/19 10:00 History Citrate ER] Tamsulosin [Flomax] 0.4 mg PO QDAY 03/03/19 03/03/19 03/02/19 22:00 History glipiZIDE [Glucotrol] 10 mg PO BID 03/03/19 03/03/19 03/02/19 22:00 History hydrALAZINE [Apresoline TAB] 50 mg PO TID 03/03/19 03/03/19 03/02/19 22:00 History Oxycodone HCl/Acetaminophen 1 each PO Q6HR PRN #60 tablet 03/04/19 Unknown Rx [Percocet 10/325 mg] Bumetanide [Bumex 1 mg tab] 2 mg PO DAILY #60 tab 03/05/19 Unknown Rx Bumetanide [Bumex 1 mg tab] 2 mg PO QDAY #60 tablet 03/05/19 Unknown Rx Active Meds: Active Medications Albuterol (Proventil) 2.5 mg IH Q4HRT PRN PRN Reason: Shortness Of Breath Albuterol/Ipratropium (Duoneb *Not For Prn Use*) 1 ampul IH Q6HRT [facility] Amlodipine Besylate (Amlodipine) 10 mg PO DAILY [facility] Atorvastatin Calcium (Lipitor) 40 mg PO QHS [facility] Budesonide (Pulmicort) 0.5 mg IH Q12HRT [facility] Carvedilol (Coreg) 12.5 mg PO BID [facility] Dextrose (D50w (25gm) Syringe) 50 ml IV Q30MIN PRN; Protocol PRN Reason: Hypoglycemia Furosemide (Lasix) 60 mg IV 0600,1800 [facility] Hydralazine HCl (Apresoline) 50 mg PO TID [facility] Insulin Human Lispro (Humalog) 0 unit SUB-Q ACHS [facility]; Protocol Nicotine (Habitrol) 14 mg TD QDAY [facility] Nitroglycerin (Nitrostat) 0.4 mg SL .Q5MIN PRN PRN Reason: Chest Pain Last Admin: 01/12/20 09:26 Dose: 0.4 mg Documented by: Oxycodone/Acetaminophen (Percocet 5/325) 1 tab PO Q4H PRN PRN Reason: Pain, Moderate (4-6) Tamsulosin HCl (Flomax) 0.4 mg PO QDAY [facility] Exam - Physical Exam Narrative exam: Not in cardiopulmonary distress. The patient is morbidly obese. Vital signs as documented. Head exam is unremarkable. No scleral icterus . Neck is without jugular venous distension, thyromegaly, or carotid bruits. Lungs are clear to auscultation. Cardiac exam reveals regular rate and Rhythm. Abdominal exam reveals normal bowel sounds, nontender, no organomegaly. Extremities are nonedematous and both femoral and pedal pulses are normal. NOTCH GRINDER: Alert and oriented 3. No focal weakness. - Constitutional Vitals: Temp Pulse Resp BP Pulse Ox 98.2 F 101 H 29 H 227/148 94 01/12/20 04:55 01/12/20 10:01 01/12/20 10:01 01/12/20 10:01 01/12/20 10:01 HEART Score - HEART Score EKG: Non-specific Age: 45-65 Risk factors: > 3 risk factors or hx of atherosclerotic disease Troponin: Troponin T 0.056 ng/mL (0.00-0.029) H 01/12/20 07:59 Troponin: 1-3x normal limit - Critical Actions Critical Actions: 4-6 pts:12-16.6% risk of adverse cardiac event. Should be a dmitted Results - Labs CBC & Chem 7: 01/12/20 04:55 01/12/20 04:55 Labs: Laboratory Last Values WBC 7.9 K/mm3 (4.5-11.0) 01/12/20 04:55 RBC 5.07 M/mm3 (3.65-5.03) H 01/12/20 04:55 Hgb 11.5 gm/dl (11.8-15.2) L 01/12/20 04:55 Hct 36.5 % (35.5-45.6) 01/12/20 04:55 MCV 72 fl (84-94) L 01/12/20 04:55 MCH 23 pg (28-32) L 01/12/20 04:55 MCHC 32 % (32-34) 01/12/20 04:55 RDW 17.5 % (13.2-15.2) H 01/12/20 04:55 Plt Count 227 K/mm3 (140-440) 01/12/20 04:55 Lymph % (Auto) 26.4 % (13.4-35.0) 01/12/20 04:55 Nolan % (Auto) 9.6 % (0.0-7.3) H 01/12/20 04:55 Eos % (Auto) 2.2 % (0.0-4.3) 01/12/20 04:55 Baso % (Auto) 0.4 % (0.0-1.8) 01/12/20 04:55 Lymph # (Auto) 2.1 K/mm3 (1.2-5.4) 01/12/20 04:55 Nolan # (Auto) 0.8 K/mm3 (0.0-0.8) 01/12/20 04:55 Eos # (Auto) 0.2 K/mm3 (0.0-0.4) 01/12/20 04:55 Baso # (Auto) 0.0 K/mm3 (0.0-0.1) 01/12/20 04:55 Seg Neutrophils % 61.4 % (40.0-70.0) 01/12/20 04:55 Seg Neutrophils # 4.9 K/mm3 (1.8-7.7) 01/12/20 04:55 PT 12.8 Sec. (12.2-14.9) 01/12/20 09:56 INR 0.95 (0.87-1.13) 01/12/20 09:56 Sodium 139 mmol/L (137-145) 01/12/20 04:55 Potassium 3.5 mmol/L (3.6-5.0) L 01/12/20 04:55 Chloride 95.8 mmol/L (98-107) L 01/12/20 04:55 Carbon Dioxide 23 mmol/L (22-30) 01/12/20 04:55 Anion Gap 24 mmol/L 01/12/20 04:55 BUN 37 mg/dL (9-20) H 01/12/20 04:55 Creatinine 2.3 mg/dL (0.8-1.3) H 01/12/20 04:55 Estimated GFR 35 ml/min 01/12/20 04:55 BUN/Creatinine Ratio 16 % 01/12/20 04:55 Glucose 137 mg/dL (75-100) H 01/12/20 04:55 POC Glucose 164 (70-105) H 01/12/20 10:23 Calcium 9.4 mg/dL (8.4-10.2) 01/12/20 04:55 Magnesium 1.80 mg/dL (1.7-2.3) 01/12/20 09:56 Total Creatine Kinase 1321 units/L (55-170) H 01/12/20 09:56 Troponin T 0.056 ng/mL (0.00-0.029) H 01/12/20 07:59 NT-Pro-B Natriuret Pep 1454 pg/mL (0-900) H 01/12/20 09:56 Triglycerides 320 mg/dL (2-149) H 01/12/20 04:55 Cholesterol 105 mg/dL (50-199) 01/12/20 04:55 LDL Cholesterol Direct 35 mg/dL (50-130) L 01/12/20 04:55 HDL Cholesterol 26 mg/dL (40-59) L 01/12/20 04:55 Cholesterol/HDL Ratio 4.03 % 01/12/20 04:55 Assessment and Plan Assessment and plan: Non-STEMI -Cardiac enzyme are elevated -Patient is complaining chest pain -Cardiology consult -Pain control Acute on chronic systolic CHF exacerbation -I put him on IV Lasix -Resume home medications -Previous echo showed ejection fraction of 40 to 45% -Patient has pacemaker Acute on chronic kidney failure, solitary kidney -Avoid nephrotoxic agents -Nephrology consulted Diabetes mellitus type 2 -Sliding scale insulin, Accu-Chek, ADA diet, adjust insulin as needed Chronic back pain -Resume home medication ROEL -CPAP at night, breathing treatment as needed Morbid obese -Counseled about lifestyle modifications COPD -DuoNeb's and albuterol as needed Active tobacco smoker -Counseled about cessation of smoking DVT prophylaxis -On heparin Disposition -Admit to telemetry floor CODE STATUS -Full Management plan was discussed in detail with the patient and was in agreement with the plan of care. Advance Directives: Yes VTE prophylaxis?: Chemical Plan of care discussed with patient/family: Yes
[2020-01-12] MEDS ORDERED: amLODIPine 5 MG TAB ONE (11:11)
[2020-01-12] MEDS: carvediloL 12.5 MG TAB PO SCH ×2 (11:16→21:49)
[2020-01-12] MEDS: TAMSULOSIN 0.4 MG CAP PO SCH (11:17)
[2020-01-12] MEDS: amLODIPine 10 MG TAB PO SCH (11:21)
--- NOTE | 2020-01-12 11:23 | Consultation ---
History of Present Illness - Reason for Consult Consult date: 01/12/20 acute renal failure, chronic renal failure - History of Present Illness The patient is a 59 YO male with history significant for Morbid Obesity, DM type 2, Hypertension, Hyperlipidemia, ROEL on CPAP, COPD, Non-ischemic cardiomyopathy, HFrEF, SSS s/p pacemaker, Tobacco smoking (1/2 pack a day), Cocaine use, RCC s/p R nephrectomy and CKD stage 3 who presented to [facility] 01/11 with c/o chest pain and sob of 4 days duration. He reports substernal chest pressure, constant, not radiating, worsens with physical exertion, decreases with rest and nitroglycerin and associated with cough, shortness of breath and orthopnea. Patient denies N, V, D, abd pain, dysuria, hematuria, hemoptysis, dizziness, syncope, leg swelling or weakness. 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 Work-up in the emergency department showed that patient is in CHF exacerbation, NSTEMI with elevated troponin ad WILIAM superimposed on CKD. Labs significant for Creat 2.3. Nephrology was consulted for further evaluation. Past History Past Medical History: COPD, diabetes, heart failure, hypertension, hyperlipi demia, renal failure, other (See HPI) Past Surgical History: Other (Right nephrectomy) Social history: smoking (Half pack per day, last smoking was 4 days ago), full code. denies: alcohol abuse, prescription drug abuse, IV drug use Family history: CAD (Mother), other (Sister and mother has kidney disease) Medications and Allergies Allergies Allergy/AdvReac Type Severity Reaction Status Date / Time No Known Allergies Allergy Verified 12/16/18 15:32 Home Medications Medication Instructions Recorded Confirmed Last Taken Type AtorvaSTATin [Lipitor] 40 mg PO QHS #30 tab 12/18/18 01/12/20 1 Day Ago Rx ~01/11/20 Fluticasone Propionate [Flovent 100 mcg IH BID PRN #1 blst.w.dev 12/18/18 01/12/20 1 Day Ago Rx Diskus] ~01/11/20 Nitroglycerin [Nitrostat] 0.4 mg SL Q5M PRN #30 tablet 12/18/18 01/12/20 1 Day Ago Rx ~01/11/20 Sacubitril/Valsartan [Entresto 24 1 tab PO BID #60 tablet 12/18/18 01/12/20 1 Day Ago Rx - 26 mg] ~01/11/20 amLODIPine 1 tab PO DAILY #30 tablet 12/18/18 01/12/20 1 Day Ago Rx ~01/11/20 carvediloL [Coreg] 12.5 mg PO BID #60 tab 12/18/18 01/12/20 1 Day Ago Rx ~01/11/20 Bumetanide 2 mg PO DAILY 03/03/19 01/12/20 1 Day Ago History ~01/11/20 Percocet 10/325 mg 10 mg PO Q6HR PRN 03/03/19 01/12/20 1 Day Ago History ~01/11/20 Potassium Citrate [Potassium 10 meq PO DAILY 03/03/19 01/12/20 1 Day Ago History Citrate ER] ~01/11/20 Tamsulosin [Flomax] 0.4 mg PO QDAY 03/03/19 01/12/20 1 Day Ago History ~01/11/20 glipiZIDE [Glucotrol] 10 mg PO BID 03/03/19 01/12/20 1 Day Ago History ~01/11/20 hydrALAZINE [Apresoline TAB] 50 mg PO TID 03/03/19 01/12/20 1 Day Ago History ~01/11/20 Oxycodone HCl/Acetaminophen 1 each PO Q6HR PRN #60 tablet 03/04/19 01/12/20 1 Day Ago Rx [Percocet 10/325 mg] ~01/11/20 Bumetanide [Bumex 1 mg tab] 2 mg PO DAILY #60 tab 03/05/19 01/12/20 1 Day Ago Rx ~01/11/20 Bumetanide [Bumex 1 mg tab] 2 mg PO QDAY #60 tablet 03/05/19 01/12/20 1 Day Ago Rx ~01/11/20 Active Meds: Active Medications Albuterol (Proventil) 2.5 mg IH Q4HRT PRN PRN Reason: Shortness Of Breath Albuterol/Ipratropium (Duoneb *Not For Prn Use*) 1 ampul IH Q6HRT [facility] Amlodipine Besylate (Amlodipine) 10 mg PO DAILY [facility] Last Admin: 01/12/20 11:21 Dose: 10 mg Documented by: Atorvastatin Calcium (Lipitor) 40 mg PO QHS [facility] Budesonide (Pulmicort) 0.5 mg IH Q12HRT [facility] Carvedilol (Coreg) 12.5 mg PO BID [facility] Last Admin: 01/12/20 11:16 Dose: 12.5 mg Documented by: Dextrose (D50w (25gm) Syringe) 50 ml IV Q30MIN PRN; Protocol PRN Reason: Hypoglycemia Furosemide (Lasix) 60 mg IV 0600,1800 [facility] Heparin Sodium (Porcine) (Heparin) 5,000 unit SUB-Q Q8HR [facility] Hydralazine HCl (Apresoline) 50 mg PO TID [facility] Insulin Human Lispro (Humalog) 0 unit SUB-Q ACHS [facility]; Protocol Nicotine (Habitrol) 14 mg TD QDAY [facility] Nitroglycerin (Nitrostat) 0.4 mg SL .Q5MIN PRN PRN Reason: Chest Pain Last Admin: 01/12/20 09:26 Dose: 0.4 mg Documented by: Oxycodone/Acetaminophen (Percocet 5/325) 1 tab PO Q4H PRN PRN Reason: Pain, Moderate (4-6) Tamsulosin HCl (Flomax) 0.4 mg PO QDAY [facility] Last Admin: 01/12/20 11:17 Dose: 0.4 mg Documented by: Review of Systems Constitutional: weight gain, no weight loss, no fever, no chills, no anorexia, no fatigue, no weakness, no poor appetite Cardiovascular: chest pain, orthopnea, shortness of breath, dyspnea on exertion, high blood pressure, no edema, no syncope, no lightheadedness, no leg edema Respiratory: cough, shortness of breath, dyspnea on exertion, sleep apnea, no excessive sputum, no hemoptysis, no home oxygen Gastrointestinal: no abdominal pain, no nausea, no vomiting, no diarrhea, no melena Genitourinary Male: no dysuria, no hematuria Integumentary: no rash Neurological: no paralysis, no weakness, no seizures, no syncope, no c onvulsions, no aphasia, no change in speech, no change in mentation, no confusion Exam - Vital Signs Vital signs: Vital Signs Temp Pulse Resp BP Pulse Ox 98.2 F 106 H 20 180/92 93 01/12/20 04:55 01/12/20 04:55 01/12/20 04:55 01/12/20 04:55 01/12/20 04:55 Results - Lab Results 01/12/20 04:55 01/12/20 04:55 Most recent lab results Calcium 9.4 mg/dL (8.4-10.2) 01/12/20 04:55 Magnesium 1.80 mg/dL (1.7-2.3) 01/12/20 09:56 Assessment and Plan 1. Acute kidney injury: Vasomotor WILIAM superimposed on CKD stage 3 in the setting of CHF. Unilateral kidney. Urine studies ordered. Monitor renal function. Renal prognosis is guarded. Avoid nephrotoxic agents. Meds dosage based on GFR. 2. FEN: Volume overload, diuretics, monitor. Replete K. Monitor lytes. 3. NSTEMI: Admitted with chest pain. Cardiology consulted. 4. Acute on chronic Systolic CHF. 5. DM-2: Sliding scale insulin, Accu-Chek, ADA diet. Adjust insulin as needed. 6. Hypertension: Monitor BP. 7. Medical non-compliance: Counseled. Subjective: Patient was seen and examined at the bedside. Examination: General appearance: well-developed, well-nourished, appears stated age, obese, no distress, NC O2 EENT: ATNC, PERRL, hearing intact, vision intact Neck: supple Respiratory: Clear to Ascultation Cardiology: regular, S1S2, no murmur Gastrointestinal: normoactive bowel sounds, no tenderness, no distended, obese Integumentary: no rash, warm and dry Neurologic: no focal deficit, no asterixis, alert and oriented x3 Ext: no edema
[2020-01-12] MEDS ORDERED: POTASSIUM CHLORIDE ER 20 MEQ TAB PO ONE (12:00)
[2020-01-12] MEDS: INSULIN LISPRO 100 UNIT/ML VIAL 3 mL SUB-Q SCH ×3 (13:57→21:45)
[2020-01-12] MEDS: NICOTINE 14 MG/24 HR PATCH TD SCH (13:58)
--- NOTE | 2020-01-12 14:08 | Consultation ---
HISTORY OF PRESENT ILLNESS: The patient is a 59-year-old male with a known history of a nonischemic cardiomyopathy and congestive heart failure, who presented with precordial chest pain over the past 4 days that has been intermittent, occurring at rest and sometimes responding to sublingual nitroglycerin. There is a history of a negative coronary angiogram in the past. He did not describe angina with activity. He does describe some recent weight gain, dyspnea on exertion and ankle edema. He states his blood pressure has been reasonable and he has been compliant with medications. He did not describe any arrhythmias or neurologic symptoms. ALLERGIES: None. MEDICATIONS: See the nurse's list. SOCIAL HISTORY: Smoking: One-half pack per day. Alcohol: No heavy use. FAMILY HISTORY: Coronary disease and kidney disease. PAST SURGICAL HISTORY: Right nephrectomy for cancer. REVIEW OF SYSTEMS: He does not describe any infectious symptoms. He had a negative stress test in 2019. He does not follow a strict diet. It states in the ER record that he ran out of Mydeosto a few days ago. He has chronic lumbosacral disk disease and pain. PHYSICAL EXAMINATION: GENERAL: Well-developed, markedly overweight, no acute distress. Alert, oriented, cooperative. Mental status normal. EYES, NOSE, AND THROAT: Unremarkable. NECK: Reveals JVD. There are no bruits. Neck is supple, no masses. LUNGS: Clear. Diminished breath sounds. No labored respirations. HEART: Regular rhythm, S4 gallop. No murmurs or rubs. ABDOMEN: Soft, nontender, no masses. EXTREMITIES: No cyanosis or clubbing. There is mild pedal edema. Peripheral pulses are intact. NEUROLOGIC: Deferred. SKIN: Clear. IMPRESSION: 1. Known dilated cardiomyopathy with a recurrence of congestive heart failure. 2. Accelerated hypertension. 3. Symptoms suggestive of unstable angina, although the patient has had a negative stress test and a negative coronary angiogram in the past. He continues to smoke, so he could develop coronary artery disease given this fact. Mild troponin elevation could be secondary to chronic kidney disease. With his chronic kidney disease, coronary angiography could be risky. At this point, we will treat medically and review our options if his symptoms become controlled with medical therapy. 4. Morbid obesity. 5. Sleep apnea. 6. Hyperlipidemia. 7. Nicotine dependence. 8. Chronic obstructive pulmonary disease. PLAN: Heart failure and hypertension therapy, antianginal therapy. Discussed angiography with Nephrology. Thank you for this consultation. JOB# [id number] ROMEO/NUHA
[2020-01-12] MEDS ORDERED: IPRATROPIUM/ALBUTEROL SULFATE 3 ML AMPUL.NEB IH ONE (14:57)
[2020-01-12] MEDS: IPRATROPIUM/ALBUTEROL SULFATE 3 ML AMPUL.NEB IH SCH ×2 (14:59→21:13)
[2020-01-12] MEDS: hydrALAZINE 25 MG TAB PO SCH ×2 (15:27→20:32)
[2020-01-12] MEDS: NITROGLYCERIN 2% OINT 1 GM TP SCH (15:27)
[2020-01-12] MEDS ORDERED: hydrALAZINE 25 MG TAB ONE (17:42)
[2020-01-12] MEDS ORDERED: NITROGLYCERIN 2% OINT 1 GM TP ONE (17:43)
[2020-01-12] MEDS: HEPARIN 5,000 UNIT/1 ML VIAL SUB-Q SCH ×2 (18:28→21:49)
[2020-01-12] MEDS: oxyCODONE /ACETAMINOPHEN 5-325MG TAB PO PRN (20:33)
[2020-01-12] MEDS: BUDESONIDE 0.5 MG/2 ML NEBU IH SCH (21:13)
[2020-01-13 04:46] LABS: Calcium 9.2 mg/dL (8.4-10.2)
[2020-01-13] MEDS: FUROSEMIDE 40 MG/4 ML INJ IV SCH ×2 (05:17→18:09)
[2020-01-13] MEDS: oxyCODONE /ACETAMINOPHEN 5-325MG TAB PO PRN ×3 (05:18→19:36)
[2020-01-13] MEDS: NITROGLYCERIN 2% OINT 1 GM TP SCH ×5 (05:18→18:06)
[2020-01-13] MEDS: HEPARIN 5,000 UNIT/1 ML VIAL SUB-Q SCH ×3 (05:29→21:27)
[2020-01-13] MEDS: guaiFENesin 100 MG/5 ML ORAL LIQD PO PRN ×3 (06:11→21:39)
[2020-01-13 06:31] LABS: Bilirubin,Urine NEG (Negative); Blood,Urine SM (Negative); Color,Urine Straw (Yellow); Mucus,Urine FEW /HPF; Urobilinogen,Urine < 2.0 mg/dL (<2.0); WBC,Urine < 1.0 /HPF (0.0-6.0)
[2020-01-13 06:34] LABS: Creatinine,Urine 79.4 mg/dL (0.1-20.0)
--- NOTE | 2020-01-13 09:31 | Progress Note ---
Assessment and Plan 1. Acute kidney injury: Vasomotor WILIAM superimposed on CKD stage 3 in the setting of CHF. Unilateral kidney. Monitor renal function. Slight decrease in creatinine level. Renal prognosis is guarded. Avoid nephrotoxic agents. Meds dosage based on GFR. 2. FEN: Volume overload, diuretics, monitor. Monitor lytes. 3. NSTEMI: Admitted with chest pain. Cardiology consulted. 4. Acute on chronic Systolic CHF. 5. DM-2: Sliding scale insulin, Accu-Chek, ADA diet. Adjust insulin as needed. 6. Hypertension: Monitor BP. 7. Medical non-compliance: Counseled. Subjective: Patient was seen and examined at the bedside. Doing ok. Examination: General appearance: well-developed, well-nourished, appears stated age, obese, no distress, NC O2 EENT: ATNC, PERRL, hearing intact, vision intact Neck: supple Respiratory: Clear to Ascultation Cardiology: regular, S1S2, no murmur Gastrointestinal: normoactive bowel sounds, no tenderness, no distended, obese Integumentary: no rash, warm and dry Neurologic: no focal deficit, no asterixis, alert and oriented x3 Ext: no edema Subjective Date of service: 01/13/20 Objective - Vital Signs Vital signs: Vital Signs - 12hr 01/12/20 01/12/20 01/13/20 21:49 23:15 00:12 Temperature 98 F Pulse Rate 68 62 Respiratory 18 Rate Blood Pressure Blood Pressure 148/68 [Right] O2 Sat by Pulse 99 94 Oximetry 01/13/20 01/13/20 01/13/20 04:12 05:18 08:30 Temperature 99.0 F 97.7 F Pulse Rate 71 71 87 Respiratory 18 18 Rate Blood Pressure 178/99 178/99 Blood Pressure 157/94 [Right] O2 Sat by Pulse 98 95 Oximetry - Lab 01/12/20 04:55 01/13/20 03:54 Most recent lab results Calcium 9.2 mg/dL (8.4-10.2) 01/13/20 03:54 Magnesium 2.10 mg/dL (1.7-2.3) 01/13/20 03:54 Urine Creatinine 79.4 mg/dL (0.1-20.0) H 01/13/20 06:12 Urine Sodium 85 mmol/L 01/13/20 06:12 Medications & Allergies - Medications Allergies/Adverse Reactions: Allergies No Known Allergies Allergy (Verified 12/16/18 15:32) Home Medications: Home Medications Medication Instructions Recorded Confirmed Last Taken Type AtorvaSTATin [Lipitor] 40 mg PO QHS #30 tab 12/18/18 01/12/20 1 Day Ago Rx ~01/11/20 Fluticasone Propionate [Flovent 100 mcg IH BID PRN #1 blst.w.dev 12/18/18 01/12/20 1 Day Ago Rx Diskus] ~01/11/20 Nitroglycerin [Nitrostat] 0.4 mg SL Q5M PRN #30 tablet 12/18/18 01/12/20 1 Day Ago Rx ~01/11/20 Sacubitril/Valsartan [Entresto 24 1 tab PO BID #60 tablet 12/18/18 01/12/20 1 Day Ago Rx - 26 mg] ~01/11/20 amLODIPine 1 tab PO DAILY #30 tablet 12/18/18 01/12/20 1 Day Ago Rx ~01/11/20 carvediloL [Coreg] 12.5 mg PO BID #60 tab 12/18/18 01/12/20 1 Day Ago Rx ~01/11/20 Bumetanide 2 mg PO DAILY 03/03/19 01/12/20 1 Day Ago History ~01/11/20 Percocet 10/325 mg 10 mg PO Q6HR PRN 03/03/19 01/12/20 1 Day Ago History ~01/11/20 Potassium Citrate [Potassium 10 meq PO DAILY 03/03/19 01/12/20 1 Day Ago History Citrate ER] ~01/11/20 Tamsulosin [Flomax] 0.4 mg PO QDAY 03/03/19 01/12/20 1 Day Ago History ~01/11/20 glipiZIDE [Glucotrol] 10 mg PO BID 03/03/19 01/12/20 1 Day Ago History ~01/11/20 hydrALAZINE [Apresoline TAB] 50 mg PO TID 03/03/19 01/12/20 1 Day Ago History ~01/11/20 Oxycodone HCl/Acetaminophen 1 each PO Q6HR PRN #60 tablet 03/04/19 01/12/20 1 Day Ago Rx [Percocet 10/325 mg] ~01/11/20 Bumetanide [Bumex 1 mg tab] 2 mg PO DAILY #60 tab 03/05/19 01/12/20 1 Day Ago Rx ~01/11/20 Bumetanide [Bumex 1 mg tab] 2 mg PO QDAY #60 tablet 03/05/19 01/12/20 1 Day Ago Rx ~01/11/20 Active Medications: Generic Name Dose Route Start Last Admin Trade Name Freq PRN Reason Stop Dose Admin Albuterol 2.5 mg 01/12/20 10:07 Proventil IH Q4HRT PRN Shortness Of Breath Albuterol/Ipratropium 1 ampul 01/13/20 08:00 Duoneb *Not For Prn Use* IH BIDRT [facility] Amlodipine Besylate 10 mg 01/12/20 10:00 01/12/20 11:21 Amlodipine PO 10 mg DAILY [facility] Administration Atorvastatin Calcium 40 mg 01/12/20 22:00 01/12/20 21:44 Lipitor PO 40 mg QHS [facility] Administration Budesonide 0.5 mg 01/12/20 20:00 01/12/20 21:13 Pulmicort IH 0.5 mg Q12HRT [facility] Administration Carvedilol 12.5 mg 01/12/20 10:00 01/12/20 21:49 Coreg PO 12.5 mg BID [facility] Administration Dextrose 50 ml 01/12/20 10:16 D50w (25gm) Syringe IV Q30MIN PRN Hypoglycemia Protocol Furosemide 60 mg 01/12/20 18:00 01/13/20 05:17 Lasix IV 60 mg 0600,1800 [facility] Administration Guaifenesin 200 mg 01/13/20 06:04 01/13/20 06:11 Robitussin PO 200 mg Q4H PRN Administration Cough Heparin Sodium (Porcine) 5,000 unit 01/12/20 14:00 01/13/20 05:29 Heparin SUB-Q 5,000 unit Q8HR [facility] Administration Hydralazine HCl 50 mg 01/12/20 14:00 01/12/20 20:32 Apresoline PO 50 mg TID [facility] Administration Insulin Human Lispro 0 unit 01/12/20 11:30 01/12/20 21:45 Humalog SUB-Q 3 unit ACHS [facility] Administration Protocol Nicotine 14 mg 01/12/20 11:00 01/12/20 13:58 Habitrol TD 14 mg QDAY [facility] Administration Nitroglycerin 0.4 mg 01/12/20 09:01 01/12/20 09:26 Nitrostat SL 0.4 mg .Q5MIN PRN Administration Chest Pain Nitroglycerin 0.5 inch 01/12/20 14:00 01/13/20 05:18 Nitro-Bid 2% TP [facility].5 [facility] Administration Protocol Oxycodone/Acetaminophen 1 tab 01/12/20 09:23 01/13/20 05:18 Percocet 5/325 PO 1 tab Q4H PRN Administration Pain, Moderate (4-6) Tamsulosin HCl 0.4 mg 01/12/20 10:00 01/12/20 11:17 Flomax PO 0.4 mg QDAY [facility] Administration
--- NOTE | 2020-01-13 10:09 | Progress Note ---
Assessment and Plan - Patient Problems (1) Acute kidney injury superimposed on chronic kidney disease Current Visit: Yes Status: Acute Plan to address problem: Acute on chronic kidney injury has improved. Avoid nephrotoxic agents. Renal function has gone from 37-2.3- to 38/2.1. May be patient's baseline. (2) Acute on chronic systolic heart failure Current Visit: Yes Status: Acute Plan to address problem: Continue IV Lasix afterload kier pleater. Patient improving with current diuresis. Beta-jj and calcium channel jj amlodipine along with hydralazine. Unable to add LISBETH inhibitor secondary to chronic kidney disease. (3) Atypical chest pain Current Visit: No Status: Acute Plan to address problem: Chest pain is resolved. Was right-sided under rib. (4) Non-STEMI (non-ST elevated myocardial infarction) Current Visit: Yes Status: Acute Plan to address problem: Await any further cardiology recommendations. For now we will continue to diurese and treat congestive heart failure. Anticipate discharge 1 to 2 days. (5) Chronic back pain Current Visit: Yes Status: Acute Plan to address problem: Continue oral pain medications. (6) Morbid obesity with BMI of 45.0-49.9, adult Current Visit: Yes Status: Acute Plan to address problem: Lifestyle changes decrease caloric intake increase exercise when tolerable. (7) HTN (hypertension) Current Visit: Yes Status: Chronic Qualifiers: (8) Diabetes Current Visit: Yes Status: Acute Plan to address problem: At present controlled sliding scale insulin. Subjective Date of service: 01/13/20 Interval history: 59-year-old male with past medical history significant for chronic systolic CHF status post ICD, ROEL, morbid obesity, diabetes mellitus type 2, hypertension, bulging disc, status post right kidney nephrectomy due to cancer presented to the emergency department complaining of midsternal chest pain that started 4 days ago. Pain is pressure-like, 6 out of 10 intensity, with no radiation, no alleviating or aggravating factors identified. Patient is also complaining of orthopnea, dyspnea worsened with exertion, and worsening of leg swelling. Patient is complaining chronic low back pain. Patient is complaining cough which is productive of white sputum but denied any fever, chills. Patient said he has been taking his medications as ordered and no change in his diet. Patient is active tobacco smoker. Work-up in the emergency department showed that patient is in CHF exacerbation, NSTEMI with elevated troponin, acute on chronic renal failure. Patient was given Lasix and requested to admit this patient. Objective - Constitutional Vitals: Vital Signs - 12hr 01/12/20 01/13/20 01/13/20 23:15 00:12 04:12 Temperature 98 F 99.0 F Pulse Rate 62 71 Respiratory 18 18 Rate Blood Pressure 178/99 Blood Pressure 148/68 [Right] O2 Sat by Pulse 99 94 98 Oximetry 01/13/20 01/13/20 05:18 08:30 Temperature 97.7 F Pulse Rate 71 87 Respiratory 18 Rate Blood Pressure 178/99 Blood Pressure 157/94 [Right] O2 Sat by Pulse 95 Oximetry - Labs CBC & Chem 7: 01/12/20 04:55 01/13/20 03:54 Labs: Abnormal lab results 01/12/20 01/12/20 01/12/20 Range/Units 09:56 10:23 13:38 BUN (9-20) mg/dL Creatinine (0.8-1.3) mg/dL Glucose (75-100) mg/dL POC Glucose 164 H (70-105) Total Creatine Kinase 1321 H (55-170) units/L Troponin T 0.071 H D (0.00-0.029) ng/mL NT-Pro-B Natriuret Pep 1454 H (0-900) pg/mL Urine Creatinine (0.1-20.0) mg/dL 01/12/20 01/12/20 01/13/20 Range/Units 16:19 21:54 03:54 BUN 38 H (9-20) mg/dL Creatinine 2.1 H (0.8-1.3) mg/dL Glucose 139 H (75-100) mg/dL POC Glucose 205 H 182 H (70-105) Total Creatine Kinase 1087 H (55-170) units/L Troponin T (0.00-0.029) ng/mL NT-Pro-B Natriuret Pep (0-900) pg/mL Urine Creatinine (0.1-20.0) mg/dL 01/13/20 Range/Units 06:12 BUN (9-20) mg/dL Creatinine (0.8-1.3) mg/dL Glucose (75-100) mg/dL POC Glucose (70-105) Total Creatine Kinase (55-170) units/L Troponin T (0.00-0.029) ng/mL NT-Pro-B Natriuret Pep (0-900) pg/mL Urine Creatinine 79.4 H (0.1-20.0) mg/dL HEART Score - HEART Score EKG: Non-specific Age: 45-65 Risk factors: > 3 risk factors or hx of atherosclerotic disease Troponin: Troponin T 0.071 ng/mL (0.00-0.029) H D 01/12/20 13:38 Troponin: 1-3x normal limit - Critical Actions Critical Actions: 4-6 pts:12-16.6% risk of adverse cardiac event. Should be admitted
[2020-01-13] MEDS: IPRATROPIUM/ALBUTEROL SULFATE 3 ML AMPUL.NEB IH SCH ×2 (10:11→20:20)
[2020-01-13] MEDS: BUDESONIDE 0.5 MG/2 ML NEBU IH SCH ×2 (10:11→20:20)
[2020-01-13] MEDS: INSULIN LISPRO 100 UNIT/ML VIAL 3 mL SUB-Q SCH ×4 (10:41→21:39)
[2020-01-13] MEDS: NICOTINE 14 MG/24 HR PATCH TD SCH (10:43)
[2020-01-13] MEDS: TAMSULOSIN 0.4 MG CAP PO SCH (10:50)
[2020-01-13] MEDS: carvediloL 12.5 MG TAB PO SCH ×2 (10:50→21:25)
[2020-01-13] MEDS: amLODIPine 10 MG TAB PO SCH (10:52)
[2020-01-13] MEDS: hydrALAZINE 25 MG TAB PO SCH ×3 (11:10→21:26)
--- NOTE | 2020-01-13 12:14 | Progress Note ---
Assessment and Plan - Patient Problems (1) Acute on chronic systolic heart failure Current Visit: Yes Status: Acute (2) Chest pain Current Visit: Yes Status: Acute (3) HTN (hypertension) Current Visit: Yes Status: Chronic Qualifiers: (4) CHF (congestive heart failure) Current Visit: No Status: Acute Qualifiers: Heart failure type: systolic Heart failure chronicity: acute on chronic Qualified Code(s): I50.23 - Acute on chronic systolic (congestive) heart failure Subjective Date of service: 01/13/20 Interval history: SOB / CP IMPROVING Objective Vital Signs Temp Pulse Pulse Resp Resp BP BP 01/13/20 11:10 87 01/13/20 10:52 87 01/13/20 10:51 87 01/13/20 10:50 155/80 01/13/20 10:46 87 01/13/20 10:12 88 20 01/13/20 10:11 01/13/20 08:30 97.7 F 87 18 157/94 01/13/20 05:18 71 178/99 01/13/20 04:12 99.0 F 71 18 178/99 01/13/20 00:12 98 F 62 18 148/68 01/12/20 23:15 01/12/20 21:49 68 01/12/20 21:22 01/12/20 21:20 92 H 20 01/12/20 20:32 68 01/12/20 19:52 73 01/12/20 19:46 98 F 68 20 161/98 01/12/20 18:31 88 20 146/88 01/12/20 18:01 92 H 29 H 147/69 01/12/20 17:45 83 24 167/101 01/12/20 17:31 81 27 H 167/101 01/12/20 17:15 90 28 H 167/101 01/12/20 17:01 84 24 167/101 01/12/20 16:45 71 30 H 166/91 01/12/20 16:31 88 16 166/91 01/12/20 16:15 90 26 H 166/91 01/12/20 16:01 85 30 H 166/91 01/12/20 15:45 97 H 17 169/95 01/12/20 15:31 88 33 H 169/95 01/12/20 15:27 88 166/98 01/12/20 15:15 85 27 H 169/95 01/12/20 15:02 91 H 19 01/12/20 15:01 93 H 19 169/95 01/12/20 14:45 96 H 29 H 169/95 01/12/20 14:31 85 28 H 169/95 01/12/20 14:15 94 H 30 H 169/95 01/12/20 14:01 82 29 H 160/77 01/12/20 13:45 88 17 169/95 01/12/20 13:31 90 29 H 169/95 01/12/20 13:15 95 H 27 H 169/95 01/12/20 13:01 87 16 169/95 01/12/20 12:45 96 H 15 149/100 01/12/20 12:31 87 25 H 149/100 01/12/20 12:15 96 H 26 H 149/100 Pulse Ox 01/13/20 11:10 01/13/20 10:52 01/13/20 10:51 01/13/20 10:50 01/13/20 10:46 01/13/20 10:12 01/13/20 10:11 97 01/13/20 08:30 95 01/13/20 05:18 01/13/20 04:12 98 01/13/20 00:12 94 01/12/20 23:15 99 01/12/20 21:49 01/12/20 21:22 98 01/12/20 21:20 01/12/20 20:32 01/12/20 19:52 01/12/20 19:46 99 01/12/20 18:31 95 01/12/20 18:01 84 01/12/20 17:45 94 01/12/20 17:31 91 01/12/20 17:15 95 01/12/20 17:01 86 01/12/20 16:45 91 01/12/20 16:31 87 01/12/20 16:15 81 L 01/12/20 16:01 86 01/12/20 15:45 95 01/12/20 15:31 93 01/12/20 15:27 01/12/20 15:15 95 01/12/20 15:02 01/12/20 15:01 93 01/12/20 14:45 94 01/12/20 14:31 91 01/12/20 14:15 89 01/12/20 14:01 89 01/12/20 13:45 01/12/20 13:31 94 01/12/20 13:15 93 01/12/20 13:01 86 01/12/20 12:45 95 01/12/20 12:31 94 01/12/20 12:15 94 - Physical Examination General: No Apparent Distress HEENT: Positive: PERRL Neck: Positive: JVD/HJR Cardiac: Positive: Regular Rate Lungs: Positive: clear to auscultation Extremities: Present: edema (TR) - Labs and Meds Comprehensive Metabolic Panel 01/13/20 Range/Units 03:54 Sodium 138 (137-145) mmol/L Potassium 4.2 (3.6-5.0) mmol/L Chloride 100.7 (98-107) mmol/L Carbon Dioxide 24 (22-30) mmol/L BUN 38 H (9-20) mg/dL Creatinine 2.1 H (0.8-1.3) mg/dL Glucose 139 H (75-100) mg/dL Calcium 9.2 (8.4-10.2) mg/dL
[2020-01-14] MEDS: oxyCODONE /ACETAMINOPHEN 5-325MG TAB PO PRN ×4 (01:25→18:59)
[2020-01-14] MEDS: FUROSEMIDE 40 MG/4 ML INJ IV SCH ×3 (05:19→17:10)
[2020-01-14] MEDS: NITROGLYCERIN 2% OINT 1 GM TP SCH ×4 (05:20→18:00)
[2020-01-14] MEDS: HEPARIN 5,000 UNIT/1 ML VIAL SUB-Q SCH ×3 (05:21→22:01)
[2020-01-14 06:30] LABS: Calcium 9.2 mg/dL (8.4-10.2)
[2020-01-14] MEDS: INSULIN LISPRO 100 UNIT/ML VIAL 3 mL SUB-Q SCH ×4 (08:00→22:02)
[2020-01-14] MEDS: BUDESONIDE 0.5 MG/2 ML NEBU IH SCH ×2 (08:08→21:45)
[2020-01-14] MEDS: IPRATROPIUM/ALBUTEROL SULFATE 3 ML AMPUL.NEB IH SCH ×2 (08:10→21:45)
--- NOTE | 2020-01-14 09:16 | Progress Note ---
Assessment and Plan COPD exacerbation Chronic kidney disease Obesity Obstructive sleep apnea Chronic tobacco abuse Dilated, nonischemic cardiomyopathy -resolving EF 45-50% by echo 10/2018 no ischemia by MPI 10/2018 follows with [facility] Conservative cardiac management. Subjective Date of service: 01/14/20 Interval history: Patient reports his breathing is better but still with coughs. Denies chest pain. Objective Vital Signs Temp Pulse Pulse Resp Resp Resp BP 01/14/20 07:57 98.6 F 88 20 165/99 01/14/20 07:00 18 01/14/20 05:20 52 L 171/88 01/14/20 04:55 97.6 F 52 L 18 171/88 01/14/20 00:07 98.1 F 40 L 20 151/85 01/13/20 23:18 87 01/13/20 21:26 81 154/85 01/13/20 21:25 81 154/85 01/13/20 20:34 77 18 01/13/20 20:22 01/13/20 20:04 97.6 F 80 20 154/85 01/13/20 20:00 81 18 01/13/20 18:06 95 H 01/13/20 14:24 16 154/76 01/13/20 14:06 72 01/13/20 14:04 74 01/13/20 11:10 87 01/13/20 11:00 88 01/13/20 10:52 87 01/13/20 10:51 87 01/13/20 10:50 155/80 01/13/20 10:46 87 01/13/20 10:12 88 20 01/13/20 10:11 Pulse Ox 01/14/20 07:57 95 01/14/20 07:00 01/14/20 05:20 01/14/20 04:55 94 01/14/20 00:07 93 01/13/20 23:18 01/13/20 21:26 01/13/20 21:25 01/13/20 20:34 01/13/20 20:22 97 01/13/20 20:04 95 01/13/20 20:00 01/13/20 18:06 01/13/20 14:24 01/13/20 14:06 01/13/20 14:04 01/13/20 11:10 01/13/20 11:00 01/13/20 10:52 01/13/20 10:51 01/13/20 10:50 01/13/20 10:46 01/13/20 10:12 01/13/20 10:11 97 - Physical Examination General: No Apparent Distress HEENT: Positive: PERRL Neck: Positive: trachea midline Cardiac: Positive: Reg Rate and Rhythm Lungs: Positive: Decreased Breath Sounds Extremities: Absent: edema - Labs and Meds Comprehensive Metabolic Panel 01/14/20 Range/Units 05:27 Sodium 141 (137-145) mmol/L Potassium 4.2 (3.6-5.0) mmol/L Chloride 101.4 (98-107) mmol/L Carbon Dioxide 25 (22-30) mmol/L BUN 38 H (9-20) mg/dL Creatinine 2.1 H (0.8-1.3) mg/dL Glucose 153 H (75-100) mg/dL Calcium 9.2 (8.4-10.2) mg/dL
[2020-01-14] MEDS: TAMSULOSIN 0.4 MG CAP PO SCH (10:10)
[2020-01-14] MEDS: NICOTINE 14 MG/24 HR PATCH TD SCH (10:10)
[2020-01-14] MEDS: hydrALAZINE 25 MG TAB PO SCH ×3 (10:12→20:24)
[2020-01-14] MEDS: amLODIPine 10 MG TAB PO SCH (10:14)
[2020-01-14] MEDS: guaiFENesin 100 MG/5 ML ORAL LIQD PO PRN ×2 (10:15→22:06)
[2020-01-14] MEDS: carvediloL 12.5 MG TAB PO SCH ×2 (10:15→22:06)
--- NOTE | 2020-01-14 11:13 | Progress Note ---
Assessment and Plan 1. Acute kidney injury: Vasomotor WILIAM superimposed on CKD stage 3 in the setting of CHF. Unilateral kidney. Monitor renal function. Creatinine leveled off. Renal prognosis is guarded. Avoid nephrotoxic agents. Meds dosage based on GFR. 2. FEN: Volume overload, diuretics, monitor. Monitor lytes. 3. NSTEMI: Admitted with chest pain. Followed by Cardiology. 4. Acute on chronic Systolic CHF. 5. DM-2: Sliding scale insulin, Accu-Chek, ADA diet. Adjust insulin as needed. 6. Hypertension: Monitor BP. 7. Medical non-compliance: Counseled. Subjective: Patient was seen and examined at the bedside. Doing ok. Examination: General appearance: well-developed, well-nourished, appears stated age, obese, no distress EENT: ATNC, PERRL, hearing intact, vision intact Neck: supple Respiratory: Clear to Ascultation Cardiology: regular, S1S2, no murmur Gastrointestinal: normoactive bowel sounds, no tenderness, not distended, obese Integumentary: no rash, warm and dry Neurologic: no focal deficit, no asterixis, alert and oriented x3 Ext: no edema Subjective Date of service: 01/14/20 Objective - Vital Signs Vital signs: Vital Signs - 12hr 01/13/20 01/14/20 01/14/20 23:18 00:07 04:55 Temperature 98.1 F 97.6 F Pulse Rate 87 40 L 52 L Pulse Rate [ Anterior Bilateral Throughout] Respiratory 20 18 Rate Respiratory Rate [Anterior Bilateral Throughout] Respiratory Rate [Chest] Blood Pressure 151/85 171/88 O2 Sat by Pulse 93 94 Oximetry 01/14/20 01/14/20 01/14/20 05:20 07:00 07:45 Temperature Pulse Rate 52 L Pulse Rate [ 87 Anterior Bilateral Throughout] Respiratory Rate Respiratory 20 Rate [Anterior Bilateral Throughout] Respiratory 18 Rate [Chest] Blood Pressure 171/88 O2 Sat by Pulse Oximetry 01/14/20 01/14/20 01/14/20 07:57 09:50 10:06 Temperature 98.6 F Pulse Rate 88 80 Pulse Rate [ Anterior Bilateral Throughout] Respiratory 20 Rate Respiratory Rate [Anterior Bilateral Throughout] Respiratory Rate [Chest] Blood Pressure 165/99 O2 Sat by Pulse 95 95 Oximetry 01/14/20 01/14/20 01/14/20 10:12 10:14 10:15 Temperature Pulse Rate 85 86 85 Pulse Rate [ Anterior Bilateral Throughout] Respiratory 18 Rate Respiratory Rate [Anterior Bilateral Throughout] Respiratory Rate [Chest] Blood Pressure O2 Sat by Pulse Oximetry - Lab 01/12/20 04:55 01/14/20 05:27 Most recent lab results Calcium 9.2 mg/dL (8.4-10.2) 01/14/20 05:27 Magnesium 2.10 mg/dL (1.7-2.3) 01/13/20 03:54 Urine Creatinine 79.4 mg/dL (0.1-20.0) H 01/13/20 06:12 Urine Sodium 85 mmol/L 01/13/20 06:12 Medications & Allergies - Medications Allergies/Adverse Reactions: Allergies No Known Allergies Allergy (Verified 12/16/18 15:32) Home Medications: Home Medications Medication Instructions Recorded Confirmed Last Taken Type AtorvaSTATin [Lipitor] 40 mg PO QHS #30 tab 12/18/18 01/12/20 1 Day Ago Rx ~01/11/20 Fluticasone Propionate [Flovent 100 mcg IH BID PRN #1 blst.w.dev 12/18/18 01/12/20 1 Day Ago Rx Diskus] ~01/11/20 Nitroglycerin [Nitrostat] 0.4 mg SL Q5M PRN #30 tablet 12/18/18 01/12/20 1 Day Ago Rx ~01/11/20 Sacubitril/Valsartan [Entresto 24 1 tab PO BID #60 tablet 12/18/18 01/12/20 1 Day Ago Rx - 26 mg] ~01/11/20 amLODIPine 1 tab PO DAILY #30 tablet 12/18/18 01/12/20 1 Day Ago Rx ~01/11/20 carvediloL [Coreg] 12.5 mg PO BID #60 tab 12/18/18 01/12/20 1 Day Ago Rx ~01/11/20 Bumetanide 2 mg PO DAILY 03/03/19 01/12/20 1 Day Ago History ~01/11/20 Percocet 10/325 mg 10 mg PO Q6HR PRN 03/03/19 01/12/20 1 Day Ago History ~01/11/20 Potassium Citrate [Potassium 10 meq PO DAILY 03/03/19 01/12/20 1 Day Ago History Citrate ER] ~01/11/20 Tamsulosin [Flomax] 0.4 mg PO QDAY 03/03/19 01/12/20 1 Day Ago History ~01/11/20 glipiZIDE [Glucotrol] 10 mg PO BID 03/03/19 01/12/20 1 Day Ago History ~01/11/20 hydrALAZINE [Apresoline TAB] 50 mg PO TID 03/03/19 01/12/20 1 Day Ago History ~01/11/20 Oxycodone HCl/Acetaminophen 1 each PO Q6HR PRN #60 tablet 03/04/19 01/12/20 1 Day Ago Rx [Percocet 10/325 mg] ~01/11/20 Bumetanide [Bumex 1 mg tab] 2 mg PO DAILY #60 tab 03/05/19 01/12/20 1 Day Ago Rx ~01/11/20 Bumetanide [Bumex 1 mg tab] 2 mg PO QDAY #60 tablet 03/05/19 01/12/20 1 Day Ago Rx ~01/11/20 Active Medications: Generic Name Dose Route Start Last Admin Trade Name Freq PRN Reason Stop Dose Admin Albuterol 2.5 mg 01/12/20 10:07 Proventil IH Q4HRT PRN Shortness Of Breath Albuterol/Ipratropium 1 ampul 01/13/20 08:00 01/14/20 08:10 Duoneb *Not For Prn Use* IH 1 ampul BIDRT CAMI Administration Amlodipine Besylate 10 mg 01/12/20 10:00 01/14/20 10:14 Amlodipine PO 10 mg DAILY CAMI Administration Atorvastatin Calcium 40 mg 01/12/20 22:00 01/13/20 21:25 Lipitor PO 40 mg QHS [facility]I Administration Budesonide 0.5 mg 01/12/20 20:00 01/14/20 08:08 Pulmicort IH 0.5 mg Q12HRT [facility]I Administration Carvedilol 12.5 mg 01/12/20 10:00 01/14/20 10:15 Coreg PO 12.5 mg BID [facility]I Administration Dextrose 50 ml 01/12/20 10:16 D50w (25gm) Syringe IV Q30MIN PRN Hypoglycemia Protocol Furosemide 60 mg 01/12/20 18:00 01/14/20 06:34 Lasix IV 60 mg 0600,1800 [facility] Administration Guaifenesin 200 mg 01/13/20 06:04 01/14/20 10:15 Robitussin PO 200 mg Q4H PRN Administration Cough Heparin Sodium (Porcine) 5,000 unit 01/12/20 14:00 01/14/20 05:21 Heparin SUB-Q 5,000 unit Q8HR [facility] Administration Hydralazine HCl 50 mg 01/12/20 14:00 01/14/20 10:12 Apresoline PO 50 mg TID [facility]I Administration Insulin Human Lispro 0 unit 01/12/20 11:30 01/14/20 08:00 Humalog SUB-Q Not Given ACHS [facility] Protocol Nicotine 14 mg 01/12/20 11:00 01/14/20 10:10 Habitrol TD 14 mg QDAY [facility] Administration Nitroglycerin 0.4 mg 01/12/20 09:01 01/12/20 09:26 Nitrostat SL 0.4 mg .Q5MIN PRN Administration Chest Pain Nitroglycerin 0.5 inch 01/12/20 14:00 01/14/20 10:06 Nitro-Bid 2% TP 0.5 inch QIDNTG [facility] Administration Protocol Oxycodone/Acetaminophen 1 tab 01/12/20 09:23 01/14/20 10:14 Percocet 5/325 PO 1 tab Q4H PRN Administration Pain, Moderate (4-6) Tamsulosin HCl 0.4 mg 01/12/20 10:00 01/14/20 10:10 Flomax PO 0.4 mg QDAY [facility] Administration
--- NOTE | 2020-01-14 13:37 | Progress Note ---
Assessment and Plan - Patient Problems (1) Acute kidney injury superimposed on chronic kidney disease Current Visit: Yes Status: Acute Plan to address problem: Acute on chronic kidney injury has improved. Avoid nephrotoxic agents. Renal function has gone from 37-2.3- to 38/2.1. May be patient's baseline. Creatinine 2.1 again should be baseline. Renal following. 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 Patient improving with current diuresis. Continue present diuresis. It is effective. Afterload medical technologist generalist [id number] diuretic and calcium channel jj. Avoided LISBETH inhibitor secondary to chronic kidney disease. Patient's lower extremities are improving as well as oxygenation improving as well.. (3) Atypical chest pain Current Visit: No Status: Acute Plan to address problem: Chest pain is resolved. Was right-sided under rib. I think this was secondary to gas gastritis he still was constipated with nausea abdominal pain. We will treat this now with lactulose. (4) Non-STEMI (non-ST elevated myocardial infarction) Current Visit: Yes Status: Acute Plan to address problem: Await any further cardiology recommendations. For now we will continue to diurese and treat congestive heart failure. Anticipate discharge 1 to 2 days. (5) Chronic back pain Current Visit: Yes Status: Acute Plan to address problem: Continue oral pain medications. (6) Morbid obesity with BMI of 45.0-49.9, adult Current Visit: Yes Status: Acute Plan to address problem: Lifestyle changes decrease caloric intake increase exercise when tolerable. (7) HTN (hypertension) Current Visit: Yes Status: Chronic Qualifiers: Plan to address problem: At present blood pressure remains suboptimally controlled. Will titrate up on increase Coreg to 25 mg twice daily. (8) Diabetes Current Visit: Yes Status: Acute Plan to address problem: At present controlled sliding scale insulin. (9) Obesity hypoventilation syndrome Current Visit: No Status: Acute Plan to address problem: CPAP if indicated. Will need sleep study on outpatient. 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 Pain is pressure-like, 6 out of 10 intensity, with no radiation, no alleviating or aggravating factors identified. Patient is also complaining of orthopnea, dyspnea worsened with exertion, and worsening of leg swelling. Patient is complaining chronic low back pain. Patient is complaining cough which is productive of white sputum but denied any fever, chills. Patient said he has been taking his medications as ordered and no change in his diet. Patient is active tobacco smoker. Work-up in the emergency department showed that patient is in CHF exacerbation, NSTEMI with elevated troponin, acute on chronic renal failure. Patient was given Lasix and requested to admit this patient. January 13, 2020 January 13, 2020-patient improving with diuresis. Has now been ruled out for acute MT. Had ejection fraction of 50% in October 2018 and also negative MPI. Patient continues to improve still has dyspnea on exertion shortness of breath but improving. January 14, 2020 patient complains more of nausea and constipation at this time. Congestive heart failure continues to improve with current diuresis. Patient given lactulose and Zofran. Objective - Constitutional Vitals: Vital Signs - 12hr 01/14/20 01/14/20 01/14/20 04:55 05:20 07:00 Temperature 97.6 F Pulse Rate 52 L 52 L Pulse Rate [ Anterior Bilateral Throughout] Respiratory 18 Rate Respiratory Rate [Anterior Bilateral Throughout] Respiratory 18 Rate [Chest] Blood Pressure 171/88 171/88 O2 Sat by Pulse 94 Oximetry 01/14/20 01/14/20 01/14/20 07:45 07:57 09:50 Temperature 98.6 F Pulse Rate 88 Pulse Rate [ 87 Anterior Bilateral Throughout] Respiratory 20 Rate Respiratory 20 Rate [Anterior Bilateral Throughout] Respiratory Rate [Chest] Blood Pressure 165/99 O2 Sat by Pulse 95 95 Oximetry 01/14/20 01/14/20 01/14/20 10:06 10:12 10:14 Temperature Pulse Rate 80 85 86 Pulse Rate [ Anterior Bilateral Throughout] Respiratory 18 Rate Respiratory Rate [Anterior Bilateral Throughout] Respiratory Rate [Chest] Blood Pressure O2 Sat by Pulse Oximetry 01/14/20 01/14/20 10:15 12:08 Temperature 98.7 F Pulse Rate 85 80 Pulse Rate [ Anterior Bilateral Throughout] Respiratory 20 Rate Respiratory Rate [Anterior Bilateral Throughout] Respiratory Rate [Chest] Blood Pressure 168/107 O2 Sat by Pulse 94 Oximetry General appearance: Present: no acute distress, well-nourished - EENT Eyes: PERRL, EOM intact ENT: hearing intact, clear oral mucosa Ears: bilateral: normal - Neck Neck: supple, normal ROM - Respiratory Respiratory effort: normal Respiratory: bilateral: CTA, rhonchi (Bilateral bases) - Breasts Breasts: normal - Cardiovascular Heart rate: 85 Rhythm: regular Heart Sounds: Present: S1 & S2. Absent: gallop, rub Extremities: pulses intact, No edema, normal color, Full ROM Extremity abnormal: edema, other (+2 pitting edema) - Gastrointestinal General gastrointestinal: Present: soft, non-tender, non-distended, normal bowel sounds, other (Obese) - Genitourinary Male genitourinary: normal - Integumentary Integumentary: clear, warm, dry - Musculoskeletal Musculoskeletal: 1, strength equal bilaterally - Neurologic Neurologic: moves all extremities - Psychiatric Psychiatric: memory intact, appropriate mood/affect, intact judgment & insight - Labs CBC & Chem 7: 01/12/20 04:55 01/14/20 05:27 Labs: Abnormal lab results 01/13/20 01/13/20 01/13/20 Range/Units 14:14 17:18 21:47 BUN (9-20) mg/dL Creatinine (0.8-1.3) mg/dL Glucose (75-100) mg/dL POC Glucose 224 H 121 H 175 H (70-105) 01/14/20 01/14/20 01/14/20 Range/Units 05:27 08:16 12:22 BUN 38 H (9-20) mg/dL Creatinine 2.1 H (0.8-1.3) mg/dL Glucose 153 H (75-100) mg/dL POC Glucose 131 H 171 H (70-105) HEART Score - HEART Score EKG: Non-specific Age: 45-65 Risk factors: > 3 risk factors or hx of atherosclerotic disease Troponin: Troponin T 0.071 ng/mL (0.00-0.029) H D 01/12/20 13:38 Troponin: 1-3x normal limit - Critical Actions Critical Actions: 4-6 pts:12-16.6% risk of adverse cardiac event. Should be admitted
[2020-01-14] MEDS ORDERED: LACTULOSE 20 GM/30 ML ORAL LIQD PO PRN (13:42)
[2020-01-14] MEDS ORDERED: ONDANSETRON 4 MG/2 ML INJ IV PRN (13:43)
--- NOTE | 2020-01-14 14:44 | XRay Report ---
XR chest 1V ap INDICATION / CLINICAL INFORMATION: sob. COMPARISON: 01/12/2020 FINDINGS: SUPPORT DEVICES: Unchanged. HEART / MEDIASTINUM: Prominent but unchanged. LUNGS / PLEURA: Lung parenchyma is not significantly changed. Possible small left pleural effusion. No pneumothorax. ADDITIONAL FINDINGS: No significant additional findings. IMPRESSION: 1. No significant interval change. Signer Name: Chan Bella MD Signed: 01/14/2020 2:39 PM Workstation Name: [id number]
[2020-01-14] MEDS ORDERED: PROMETHAZINE 25 MG RECT SUPP PR PRN (16:57)
[2020-01-15] MEDS: oxyCODONE /ACETAMINOPHEN 5-325MG TAB PO PRN ×2 (01:37→06:14)
[2020-01-15] MEDS: FUROSEMIDE 40 MG/4 ML INJ IV SCH (05:50)
[2020-01-15] MEDS: HEPARIN 5,000 UNIT/1 ML VIAL SUB-Q SCH ×2 (05:51→13:46)
[2020-01-15] MEDS: NITROGLYCERIN 2% OINT 1 GM TP SCH ×3 (05:51→14:00)
[2020-01-15] MEDS: guaiFENesin 100 MG/5 ML ORAL LIQD PO PRN (05:56)
[2020-01-15 07:58] LABS: Calcium 9.4 mg/dL (8.4-10.2)
[2020-01-15] MEDS: BUDESONIDE 0.5 MG/2 ML NEBU IH SCH (08:17)
[2020-01-15] MEDS: IPRATROPIUM/ALBUTEROL SULFATE 3 ML AMPUL.NEB IH SCH (08:17)
--- NOTE | 2020-01-15 08:41 | Progress Note ---
Assessment and Plan 1. Acute kidney injury: Vasomotor WILIAM superimposed on CKD stage 3 in the setting of CHF. Unilateral kidney. Monitor renal function. Creatinine leveled off. Renal prognosis is guarded. Avoid nephrotoxic agents. Meds dosage based on GFR. 2. FEN: Volume overload, diuretics, monitor. Monitor lytes. 3. NSTEMI: Admitted with chest pain. Followed by Cardiology. 4. Acute on chronic Systolic CHF. 5. DM-2: Sliding scale insulin, Accu-Chek, ADA diet. Adjust insulin as needed. 6. Hypertension: Monitor BP. 7. Medical non-compliance: Counseled. F/u with me in 1-2 weeks. Subjective: Patient was seen and examined at the bedside. Doing ok. Examination: General appearance: well-developed, well-nourished, appears stated age, obese, no distress EENT: ATNC, PERRL, hearing intact, vision intact Neck: supple Respiratory: Clear to Ascultation Cardiology: regular, S1S2, no murmur Gastrointestinal: normoactive bowel sounds, no tenderness, not distended, obese Integumentary: no rash, warm and dry Neurologic: no focal deficit, no asterixis, alert and oriented x3 Ext: no edema Subjective Date of service: 01/15/20 Principal diagnosis: CHF exacerbation Objective - Vital Signs Vital signs: Vital Signs - 12hr 01/14/20 01/14/20 01/14/20 21:48 21:49 22:06 Temperature Pulse Rate 80 Pulse Rate [ 92 H Anterior Bilateral Throughout] Respiratory Rate Respiratory 18 Rate [Anterior Bilateral Throughout] Blood Pressure 144/84 O2 Sat by Pulse 94 Oximetry 01/14/20 01/14/20 01/15/20 22:15 23:00 03:23 Temperature 97.6 F 97.5 F L Pulse Rate 92 H 54 L 83 Pulse Rate [ Anterior Bilateral Throughout] Respiratory 20 16 16 Rate Respiratory Rate [Anterior Bilateral Throughout] Blood Pressure 162/96 143/87 O2 Sat by Pulse 94 90 94 Oximetry 01/15/20 01/15/20 01/15/20 03:55 05:51 07:27 Temperature 98.4 F Pulse Rate 85 94 H 65 Pulse Rate [ Anterior Bilateral Throughout] Respiratory 18 Rate Respiratory Rate [Anterior Bilateral Throughout] Blood Pressure 143/87 133/88 O2 Sat by Pulse 93 Oximetry 01/15/20 01/15/20 08:16 08:17 Temperature Pulse Rate Pulse Rate [ 79 Anterior Bilateral Throughout] Respiratory Rate Respiratory 20 Rate [Anterior Bilateral Throughout] Blood Pressure O2 Sat by Pulse 99 Oximetry - Lab 01/12/20 04:55 01/15/20 06:46 Most recent lab results Calcium 9.4 mg/dL (8.4-10.2) 01/15/20 06:46 Magnesium 2.10 mg/dL (1.7-2.3) 01/13/20 03:54 Urine Creatinine 79.4 mg/dL (0.1-20.0) H 01/13/20 06:12 Urine Sodium 85 mmol/L 01/13/20 06:12 Medications & Allergies - Medications Allergies/Adverse Reactions: Allergies No Known Allergies Allergy (Verified 12/16/18 15:32) Home Medications: Home Medications Medication Instructions Recorded Confirmed Last Taken Type Oxycodone HCl/Acetaminophen 1 each PO Q6HR PRN #60 tablet 03/04/19 01/12/20 1 Day Ago Rx [Percocet 10/325 mg] ~01/11/20 Bumetanide [Bumex 1 mg tab] 2 mg PO DAILY #60 tab 03/05/19 01/12/20 1 Day Ago Rx ~01/11/20 Bumetanide [Bumex 1 mg tab] 2 mg PO QDAY #60 tablet 03/05/19 01/12/20 1 Day Ago Rx ~01/11/20 AtorvaSTATin [Lipitor] 40 mg PO QHS #30 tab 01/15/20 Unknown Rx Benzonatate [Tessalon Perles] 100 mg PO Q8HR #15 capsule 01/15/20 Unknown Rx Budesonide [Pulmicort Respules] 0.5 mg IH Q12HRT nebu 01/15/20 Unknown Rx Bumetanide 2 mg PO DAILY #30 01/15/20 Unknown Rx Fluticasone Propionate [Flovent 100 mcg IH BID PRN #1 blst.w.dev 01/15/20 Unknown Rx Diskus] Insulin Lispro [Humalog] 0 unit SUB-Q ACHS vial 01/15/20 Unknown Rx Ipratropium/Albuterol Sulfate 1 ampul IH BIDRT ampul.neb 01/15/20 Unknown Rx [DUONEB *Not for PRN Use*] Lactulose [Cephulac] 20 gm PO QHS PRN oral.liqd 01/15/20 Unknown Rx Nitroglycerin [Nitrostat] 0.4 mg SL .Q5MIN PRN tablet 01/15/20 Unknown Rx Nitroglycerin [Nitrostat] 0.4 mg SL Q5M PRN #30 tablet 01/15/20 Unknown Rx Percocet 10/325 mg 10 mg PO Q6HR PRN #12 01/15/20 Unknown Rx Potassium Citrate [Potassium 10 meq PO DAILY #30 01/15/20 Unknown Rx Citrate ER] Sacubitril/Valsartan [Entresto 24 1 tab PO BID #60 tablet 01/15/20 Unknown Rx - 26 mg] Tamsulosin [Flomax] 0.4 mg PO QDAY #30 cap 01/15/20 Unknown Rx amLODIPine 1 tab PO DAILY #30 tablet 01/15/20 Unknown Rx carvediloL [Coreg] 12.5 mg PO BID #60 tab 01/15/20 Unknown Rx glipiZIDE [Glucotrol] 10 mg PO BID #60 01/15/20 Unknown Rx Active Medications: Generic Name Dose Route Start Last Admin Trade Name Freq PRN Reason Stop Dose Admin Albuterol 2.5 mg 01/12/20 10:07 Proventil IH Q4HRT PRN Shortness Of Breath Albuterol/Ipratropium 1 ampul 01/13/20 08:00 01/15/20 08:17 Duoneb *Not For Prn Use* IH 1 ampul BIDRT [facility] Administration Amlodipine Besylate 10 mg 01/12/20 10:00 01/14/20 10:14 Amlodipine PO 10 mg DAILY [facility] Administration Atorvastatin Calcium 40 mg 01/12/20 22:00 01/14/20 22:02 Lipitor PO 40 mg QHS [facility] Administration Budesonide 0.5 mg 01/12/20 20:00 01/15/20 08:17 Pulmicort IH 0.5 mg Q12HRT [facility]I Administration Carvedilol 12.5 mg 01/12/20 10:00 01/14/20 22:06 Coreg PO 12.5 mg BID [facility]I Administration Dextrose 50 ml 01/12/20 10:16 D50w (25gm) Syringe IV Q30MIN PRN Hypoglycemia Protocol Furosemide 60 mg 01/12/20 18:00 01/15/20 05:50 Lasix IV 60 mg 0600,1800 [facility] Administration Guaifenesin 200 mg 01/13/20 06:04 01/15/20 05:56 Robitussin PO 200 mg Q4H PRN Administration Cough Heparin Sodium (Porcine) 5,000 unit 01/12/20 14:00 01/15/20 05:51 Heparin SUB-Q 5,000 unit Q8HR [facility] Administration Hydralazine HCl 50 mg 01/12/20 14:00 01/14/20 20:24 Apresoline PO 50 mg TID [facility] Administration Insulin Human Lispro 0 unit 01/12/20 11:30 01/14/20 22:02 Humalog SUB-Q Not Given ACHS [facility] Protocol Lactulose 20 gm 01/14/20 13:42 01/14/20 16:23 Cephulac PO 20 gm QHS PRN Administration Constipation Nicotine 14 mg 01/12/20 11:00 01/14/20 10:10 Habitrol TD 14 mg QDAY [facility] Administration Nitroglycerin 0.4 mg 01/12/20 09:01 01/12/20 09:26 Nitrostat SL 0.4 mg .Q5MIN PRN Administration Chest Pain Nitroglycerin 0.5 inch 01/12/20 14:00 01/15/20 05:51 Nitro-Bid 2% TP 0.5 inch QIDNTG [facility] Administration Protocol Ondansetron HCl 4 mg 01/14/20 13:43 01/14/20 16:26 Zofran IV 4 mg Q8H PRN Administration N/V unrelieved by Reglan Oxycodone/Acetaminophen 1 tab 01/12/20 09:23 01/15/20 06:14 Percocet 5/325 PO 1 tab Q4H PRN Administration Pain, Moderate (4-6) Promethazine HCl 25 mg 01/14/20 16:57 Phenergan [place] Q6H PRN N/V IF NPO AND NO IV ACCESS Tamsulosin HCl 0.4 mg 01/12/20 10:00 01/14/20 10:10 Flomax PO 0.4 mg QDAY [facility] Administration
[2020-01-15] MEDS: hydrALAZINE 25 MG TAB PO SCH ×2 (09:23→13:46)
[2020-01-15] MEDS: carvediloL 12.5 MG TAB PO SCH (09:25)
[2020-01-15] MEDS: TAMSULOSIN 0.4 MG CAP PO SCH (09:25)
[2020-01-15] MEDS: amLODIPine 10 MG TAB PO SCH (09:25)
[2020-01-15] MEDS: NICOTINE 14 MG/24 HR PATCH TD SCH (09:26)
[2020-01-15] MEDS: INSULIN LISPRO 100 UNIT/ML VIAL 3 mL SUB-Q SCH ×2 (09:28→13:56)
--- NOTE | 2020-01-15 10:03 | Discharge Summary ---
Providers - Providers Date of Admission: 01/12/20 09:13 Date of discharge: 01/15/20 Attending physician: DEANNE ROSS 01/12/20 09:12 Consult to Physician [CONS] Routine Comment: Consulting Provider: ANTIONETTE LOMBARDO Physician Instructions: Reason For Exam: NSTEMI 01/12/20 10:12 Consult to Physician [CONS] Routine Comment: Consulting Provider: FELIX PALOMO Physician Instructions: Reason For Exam: acute on CKD, solitary kidney Primary care physician: [employer] Hospitalization Reason for admission: sob Condition: Serious Hospital course: The patient is a 59 YO male with history significant for Morbid Obesity, DM type 2, Hypertension, Hyperlipidemia, ROEL on CPAP, COPD, Non-ischemic c ardiomyopathy, HFrEF, SSS s/p pacemaker, Tobacco smoking (1/2 pack a day), Cocaine use, RCC s/p R nephrectomy and CKD stage 3 who presented to [facility] ED 01/11 with c/o chest pain and sob of 4 days duration. He reported substernal chest pressure, constant, not radiating, worsening with physical exertion, decreases with rest and nitroglycerin and associated with cough, shortness of breath and orthopnea. Patient denied N, V, D, abd pain, dysuria, hematuria, hemoptysis, dizziness, syncope, leg swelling or weakness. He was not followed by a General Merchandise Salesperson. Work-up in the emergency department showed that patient is in CHF exacerbation, NSTEMI with elevated troponin ad WILIAM superimposed on CKD. Labs significant for Creat 2.3. Nephrology was consulted for further evaluation. The patient was admitted with diagnosis of acute kidney injury secondary to vasomotor nephropathy superimposed on chronic kidney disease stage III. Patient also was noted to have acute on chronic systolic heart failure. The patient was seen by cardiology who opted for conservative cardiac management. The patient received diuretics and heart failure resolved. Creatinine eventually stabilized and patient was felt to receive maximal hospital benefit for discharge. Dedicated discharge time 35 minutes. Disposition: TO HOME OR SELFCARE Time spent for discharge: 35 - Discharge Diagnoses (1) Acute kidney injury superimposed on chronic kidney disease Status: Acute (2) Acute on chronic systolic heart failure Status: Acute (3) Diabetes Status: Acute (4) Morbid obesity with BMI of 45.0-49.9, adult Status: Acute (5) Non-STEMI (non-ST elevated myocardial infarction) Status: Acute (6) HTN (hypertension) Status: Chronic Qualifiers: (7) Diabetes Status: Acute (8) HLD (hyperlipidemia) Status: Acute Qualifiers: Hyperlipidemia type: mixed hyperlipidemia Qualified Code(s): E78.2 - Mixed hyperlipidemia (9) Hypertension Status: Acute Qualifiers: Hypertension type: essential hypertension Qualified Code(s): I10 - Essential (primary) hypertension Core Measure Documentation - Palliative Care Palliative Care/ Comfort Measures: Not Applicable - Core Measures Any of the following diagnoses?: none Exam - Constitutional Vitals: Temp Pulse Resp BP Pulse Ox 98.4 F 81 20 139/84 99 01/15/20 07:27 01/15/20 09:26 01/15/20 08:17 01/15/20 09:26 01/15/20 08:16 General appearance: Present: no acute distress, well-nourished - EENT Eyes: Present: PERRL ENT: hearing intact, clear oral mucosa - Neck Neck: Present: supple, normal ROM - Respiratory Respiratory effort: normal Respiratory: bilateral: CTA - Cardiovascular Heart Sounds: Present: S1 & S2. Absent: rub, click - Extremities Extremities: pulses symmetrical, No edema Peripheral Pulses: within normal limits - Abdominal General gastrointestinal: Present: soft, non-tender, non-distended, normal bowel sounds Male genitourinary: Present: normal - Integumentary Integumentary: Present: clear, warm, dry - Musculoskeletal Musculoskeletal: gait normal, strength equal bilaterally - Psychiatric Psychiatric: appropriate mood/affect, intact judgment & insight - Neurologic Neurologic: CNII-XII intact, moves all extremities Plan Activity: advance as tolerated Weight Bearing Status: Weight Bear as Tolerated Special Instructions: restrict fluid intake to (1.2 L), record daily weights Follow up with: CARROLL VIVAS MD [Primary Care Provider] - 3-5 Days ANTIONETTE LOMBARDO MD [Staff Physician] - 7 Days FELIX PALOMO MD [Staff Physician] - 7 Days Prescriptions: amLODIPine 1 tab PO DAILY #30 tablet Bumetanide 2 mg PO DAILY #30 carvediloL [Coreg] 12.5 mg PO BID #60 tab Sacubitril/Valsartan [Entresto 24 - 26 mg] 1 tab PO BID #60 tablet Tamsulosin [Flomax] 0.4 mg PO QDAY #30 cap Fluticasone Propionate [Flovent Diskus] 100 mcg IH BID PRN #1 blst.w.dev PRN Reason: YINA glipiZIDE [Glucotrol] 10 mg PO BID #60 AtorvaSTATin [Lipitor] 40 mg PO QHS #30 tab Nitroglycerin [Nitrostat] 0.4 mg SL Q5M PRN #30 tablet PRN Reason: Chest pain Percocet 10/325 mg 10 mg PO Q6HR PRN #12 PRN Reason: Pain Potassium Citrate [Potassium Citrate ER] 10 meq PO DAILY #30 Benzonatate [Tessalon Perles] 100 mg PO Q8HR #15 capsule
--- NOTE | 2020-01-15 10:14 | Progress Note ---
Assessment and Plan COPD exacerbation Chronic kidney disease Obesity Obstructive sleep apnea Chronic tobacco abuse Dilated, nonischemic cardiomyopathy -resolving EF 45-50% by echo 10/2018 no ischemia by MPI 10/2018 follows with [facility] Conservative cardiac management. Subjective Date of service: 01/15/20 Principal diagnosis: CHF exacerbation Interval history: Patient has no cardiac complaints. Objective Vital Signs Temp Pulse Pulse Resp Resp BP Pulse Ox 01/15/20 09:26 81 139/84 01/15/20 09:25 81 139/84 01/15/20 09:23 81 139/84 01/15/20 08:17 79 20 01/15/20 08:16 99 01/15/20 07:27 98.4 F 65 18 133/88 93 01/15/20 05:51 94 H 143/87 01/15/20 03:55 85 01/15/20 03:23 97.5 F L 83 16 143/87 94 01/14/20 23:00 97.6 F 54 L 16 162/96 90 01/14/20 22:15 92 H 20 94 01/14/20 22:06 80 144/84 01/14/20 21:49 94 01/14/20 21:48 92 H 18 01/14/20 20:24 87 142/79 01/14/20 20:08 84 01/14/20 19:14 97.2 F L 87 16 142/79 92 01/14/20 18:00 78 01/14/20 16:34 87 01/14/20 16:21 99.0 F 87 20 170/89 96 01/14/20 14:00 76 171/80 01/14/20 12:08 98.7 F 80 20 168/107 94 01/14/20 12:00 80 01/14/20 10:15 85 01/14/20 10:14 86 18 - Physical Examination General: No Apparent Distress HEENT: Positive: PERRL Neck: Positive: trachea midline Cardiac: Positive: Reg Rate and Rhythm Lungs: Positive: Decreased Breath Sounds Extremities: Absent: edema - Labs and Meds Comprehensive Metabolic Panel 01/15/20 Range/Units 06:46 Sodium 141 (137-145) mmol/L Potassium 4.8 (3.6-5.0) mmol/L Chloride 100.1 (98-107) mmol/L Carbon Dioxide 26 (22-30) mmol/L BUN 38 H (9-20) mg/dL Creatinine 2.3 H (0.8-1.3) mg/dL Glucose 139 H (75-100) mg/dL Calcium 9.4 (8.4-10.2) mg/dL
[2020-01-15 15:33] VITALS: BP 150/82
== END 2020-01-15 16:15 | disposition home or self-care (01) ==
LOC: ED 04:34 → 4A 09:13
PROVIDERS: ADMIT Internal Medicine; ATTEND Hospitalist
DX: I21.4 Non-ST elevation (NSTEMI) myocardial infarction (principal); R06.02 Shortness of breath; I13.0 Hypertensive heart and chronic kidney disease with heart failure and stage 1 through stage 4 chronic kidney disease, or unspecified chronic kidney disease; I50.23 Acute on chronic systolic (congestive) heart failure; N17.9 Acute kidney failure, unspecified; N18.9 Chronic kidney disease, unspecified; R07.9 Chest pain, unspecified; E11.22 Type 2 diabetes mellitus with diabetic chronic kidney disease; J44.9 Chronic obstructive pulmonary disease, unspecified; G47.33 Obstructive sleep apnea (adult) (pediatric); M19.90 Unspecified osteoarthritis, unspecified site; E66.01 Morbid (severe) obesity due to excess calories; F17.210 Nicotine dependence, cigarettes, uncomplicated; E78.5 Hyperlipidemia, unspecified; Z79.4 Long term (current) use of insulin; Z95.0 Presence of cardiac pacemaker; Z98.890 Other specified postprocedural states; Z91.14 Patient's other noncompliance with medication regimen
CPT/HCPCS: 36415; 71045; 80048; 80061; 81001; 82550; 82570; 82962; 83735; 83880; 84300; 84484; 85025; 85610; 89050; 93005; 94640; 94660; 94760; 96372; 96374; 96375; 96376; 99291; 99406; A9270; G0378; J1644; J1940; J2405